=== PATIENT | male | born 1955 | race Caucasian/White ===

== ENCOUNTER 2017-01-27 09:52 | Inpatient (IN) | payer OTHER, SELFPAY ==
[2017-01-27 09:53] VITALS: BMI 23.6
[2017-01-27] MEDS ORDERED: Sodium Chloride 0.9% 1,000 ML IV ONE (10:17)
[2017-01-27] MEDS ORDERED: Sodium Chloride 0.9% 1,000 ML ONE (10:37)
[2017-01-27] MEDS ORDERED: Iohexol 240 (50 ml) ONE (10:37)
[2017-01-27 10:52] LABS: CHLORIDE 99 mmol/L (98-107); SODIUM 133 mmol/L (132-148)
[2017-01-27 10:53] LABS: POTASSIUM 3.9 mmol/L (3.6-5.2)
[2017-01-27 10:54] LABS: BASO % 2.3 % (0.0-2.0); EOS # 0.1 K/uL (0.0-0.7); EOS % 4.2 % (0.0-4.0); GFR AFRICAN-AMERICAN > 60; HEMATOCRIT 43.5 % (35.0-51.0); LYMPH # 0.5 K/uL (1.0-4.3); LYMPH % 24.7 % (20.0-40.0); MEAN CELL VOLUME 90.1 fL (80.0-94.0); MEAN CORPUSCULAR HEMOGLOBIN 29.6 pg (27.0-31.0); MEAN CORPUSCULAR HGB CONC 32.9 g/dL (33.0-37.0); MEAN PLATELET VOLUME 8.8 fL (7.2-11.7); MONO # 0.2 K/uL (0.0-0.8); MONO % 12.5 % (0.0-10.0); NRBC % 0.4 % (0.0-2.0); RED CELL DISTRIBUTION WIDTH 16.1 % (11.5-14.5)
[2017-01-27 10:55] LABS: ALB/GLOB RATIO 0.7 (1.0-2.1); ALKALINE PHOSPHATASE 215 U/L (38-126); ALT/SGPT 39 U/L (21-72); AST/SGOT 47 U/L (17-59); BILIRUBIN,TOTAL 3.4 mg/dL (0.2-1.3); BLOOD UREA NITROGEN 7 mg/dL (9-20); CALCIUM 8.4 mg/dl (8.6-10.4); CARBON DIOXIDE 24 mmol/L (22-30); TOTAL PROTEIN 6.4 g/dL (6.3-8.3)
[2017-01-27 11:02] LABS: GLUCOSE,RANDOM 433 mg/dL (75-110)
[2017-01-27 11:18] LABS: RBC URINE 1 /hpf (0-3); URINE BILIRUBIN NEGATIVE (NEGATIVE); URINE BLOOD NEGATIVE (NEGATIVE); URINE COLOR Yellow (YELLOW); URINE GLUCOSE (UA) 3+ mg/dL (Normal); URINE KETONE TRACE mg/dL (NEGATIVE); URINE LEUKOCYTE ESTERASE NEG Leu/uL (Negative); URINE PROTEIN NEGATIVE (NEGATIVE); URINE UROBILINOGEN NORMAL mg/dL (0.2-1.0); WBC URINE < 1 /hpf (0-5)
[2017-01-27] MEDS ORDERED: Iodixanol 320 MG/ML 100 ML BOTTLE IV ONE (11:33)
--- NOTE | 2017-01-27 13:15 | CT ---
PROCEDURE: CT Abdomen and Pelvis with contrast HISTORY: h/o ascites - increasing size with lft. abd. pain COMPARISON: Comparison is made to 11/13/2015 TECHNIQUE: Contrast dose: 100 mL Visipaque 320. Axial and re- formatted coronal and sagittal CT images of the abdomen and pelvis were obtained after IV and oral contrast administration. Radiation dose: Total exam DLP = 527.93 mGy-cm. This CT exam was performed using one or more of the following dose reduction techniques: Automated exposure control, adjustment of the mA and/or kV according to patient size, and/or use of iterative reconstruction technique. FINDINGS: LOWER THORAX: No evidence of acute pathology. LIVER: Cirrhotic manifestation of the liver are again noted. Again seen is focal hyper enhancement at the right liver lobe measures 15 x 13.2 millimeter has not significantly changed since the previous exam and likely represent cavernous transformation of the portal vein. GALLBLADDER AND BILE DUCTS: The gallbladder is again mildly to moderately distended. No evidence of radiodense gallstones seen. If indicated further assessment of the gallbladder by ultrasound may be obtained. PANCREAS: Atrophy changes of the pancreas are again seen associated with scattered calcification consistent with chronic pancreatitis. The main pancreatic duct is moderately dilated. SPLEEN: Moderate splenomegaly is again noted. The spleen measures 18.2 centimeter in the longitudinal diameter. ADRENALS: Unremarkable. No mass. KIDNEYS AND URETERS: Unremarkable. No hydronephrosis. No solid mass. VASCULATURE: There are large collateral veins seen in the upper abdomen consistent with portal systemic shunt due to portal hypertension and liver cirrhosis. . No aortic aneurysm. BOWEL: There is a moderate diffuse small bowel wall thickening K seen in the abdomen and pelvis. Findings are nonspecific and may represent soft tissue edema however the possibility of enteritis should be excluded. Mild constipation is noted. There is no CT evidence of colitis or bowel obstruction. APPENDIX: There is no evidence of appendicitis. PERITONEUM: Moderate amount of ascites seen in the abdomen and pelvis which has increased since the previous exam. LYMPH NODES: Unremarkable. No enlarged lymph nodes. BLADDER: Mild diffuse urinary bladder wall thickening is noted. REPRODUCTIVE: Unremarkable. BONES: No acute fracture. OTHER FINDINGS: There is midline ventral hernia seen just above the umbilicus measures 4.4 centimeter in the transverse diameter and 1.4 centimeter in the AP diameter. There are postsurgical changes suggestive of prior ventral hernia repair. There are fluid containing bilateral inguinal hernias larger on the right. IMPRESSION: Moderate amount of ascites in the abdomen and pelvis, has increased since the previous exam. Advanced cirrhosis with findings consistent with portal hypertension and portal systemic shunts. Moderate splenomegaly. Chronic pancreatitis. Moderate diffuse small bowel wall thickening suspicious for enteritis. No evidence of high-grade bowel obstruction. Mild to moderate constipation. Midline ventral hernia contains fluid seen just above the umbilicus. Bilateral inguinal hernias contain fluid.
[2017-01-27] MEDS ORDERED: (Novolin R) Insulin Human Regular 100 units/ml vial IV STA (13:30)
[2017-01-27] MEDS ORDERED: (Novolin R) Insulin Human Regular 100 units/ml vial ONE (13:37)
--- NOTE | 2017-01-27 14:03 | C.PDOC ---
History Of Present Illness 61 y/o male, with PMHx of cirrhosis, IDDM (takes insulin), presents to ED for evaluation of increased abdominal distention for the past several days. (+) constipation. Otherwise, denies any fever, chills, n/v/d, dysuria, hematuria, back pain, or any other associated symptoms at this time. Chief Complaint (Nursing): Abdominal Pain History Per: Patient History/Exam Limitations: no limitations Onset/Duration Of Symptoms: Days Current Symptoms Are (Timing): Still Present Severity: Mild Location Of Pain/Discomfort: Diffuse Radiation Of Pain To:: None Quality Of Discomfort: "Pain" Associated Symptoms: Constipation. denies: Loss Of Appetite, Back Pain, Chest Pain, Urinary Symptoms Exacerbating Factors: None Alleviating Factors: None Recent travel outside of the [place]: No Additional History Per: Patient Past Medical History Reviewed: Historical Data, Nursing Documentation, Vital Signs Vital Signs: Last Vital Signs Temp 97.9 F 01/27/17 15:30 Pulse 74 01/27/17 15:30 Resp 18 01/27/17 16:23 BP 113/69 01/27/17 17:26 Pulse Ox 95 01/27/17 15:30 - Medical History PMH: Diabetes, Hepatitis, HTN, Hypercholesterolemia Denies: Chronic Kidney Disease Family History: States: Hypertension - Social History Hx Tobacco Use: Yes Hx Alcohol Use: No Hx Substance Use: No - Immunization History Hx Tetanus Toxoid Vaccination: Yes Hx Influenza Vaccination: Yes Hx Pneumococcal Vaccination: No Review Of Systems Except As Marked, All Systems Reviewed And Found Negative. Constitutional: Negative for: Fever, Chills Gastrointestinal: Positive for: Abdominal Pain (abdominal distention), Constipation. Negative for: Nausea, Vomiting, Diarrhea Genitourinary: Negative for: Dysuria, Frequency, Hematuria, Penile Discharge Musculoskeletal: Negative for: Back Pain Physical Exam - Physical Exam Appears: Non-toxic, No Acute Distress, Other (thin) Skin: Normal Color, Warm, Dry Head: Atraumatic, Normacephalic Eye(s): bilateral: Normal Inspection Oral Mucosa: Moist Neck: Normal ROM, Supple Cardiovascular: Rhythm Regular, No Murmur Respiratory: Normal Breath Sounds, No Rales, No Rhonchi, No Wheezing Gastrointestinal/Abdominal: Bowel Sounds, Soft, Tenderness (bilateral lower), Organomegaly (hepatomegaly, splenomegaly), Distention ((+)fluid wave), No Guarding, No Rebound Back: Normal Inspection, No CVA Tenderness Extremity: Normal ROM, No Pedal Edema, No Deformity Neurological/Psych: Oriented x3, Normal Speech, Normal Cognition ED Course And Treatment - Laboratory Results Result Diagrams: 01/27/17 10:35 01/27/17 10:35 O2 Sat by Pulse Oximetry: 95 (RA) Pulse Ox Interpretation: Normal Medical Decision Making Medical Decision Making: Plan: Urine culture Patient was given Insulin, and IV fluids. Case discussed with Dr. Schulte who will admit patient under his service. Disposition - Disposition Disposition: HOSPITALIZED Disposition Time: 13:00 Condition: STABLE - Clinical Impression Clinical Impression: Abdominal distension, Chronic active hepatitis C, Thrombocytopenia, Constipation - Scribe Statement The provider has reviewed the documentation as recorded by the Scribzachary Rizo All medical record entries made by the Reganibe were at my direction and personally dictated by me. I have reviewed the chart and agree that the record accurately reflects my personal performance of the history, physical exam, medical decision making, and the department course for this patient. I have also personally directed, reviewed, and agree with the discharge instructions and disposition.
--- NOTE | 2017-01-27 16:03 | RAD ---
PROCEDURE: CHEST RADIOGRAPH, 1 VIEW HISTORY: r/o pleural effusion COMPARISON: 05/16/2016 FINDINGS: LUNGS: No consolidation. PLEURA: No pneumothorax or pleural fluid seen. CARDIOVASCULAR: Mild cardiomegaly Mild central pulmonary venous congestion =slightly increased compared to the prior exam OSSEOUS STRUCTURES: No significant abnormalities. VISUALIZED UPPER ABDOMEN: Normal. OTHER FINDINGS: None. IMPRESSION: Mild cardiomegaly. Mild central pulmonary venous can -slightly increased. No definitive pleural effusion.
[2017-01-27] MEDS ORDERED: Hydrocortisone 0.5% Cream(30 gm) TOP PRN ×2 (16:17→16:29)
[2017-01-27] MEDS: (Novolog) Insulin Aspart, Recombinant 100 u/ml 10 ml vial SC SCH ×2 (17:02→21:43)
[2017-01-27] MEDS: Pantoprazole 40 mg EC Tab PO SCH (17:35)
--- NOTE | 2017-01-27 17:56 | CP.PCM.HP ---
<MkJarethKaren - Last Filed: 01/27/17 23:15> History of Present Illness - History of Present Illness History of Present Illness: HPI: Patient is a 61M from [place] with PMH Hepatitis C, Cirrhosis, R inguinal hernia, and IDDM who presented to the ED for increasing abdominal distention. Patient says he thinks it is ascites as he has had this in the past 2/2 cirrhosis. Patient says he noticed this about 1 week ago and it has been getting worse since then. In the past patient refused paracentesis and was treated with conservative medical management. Pt says he was seen at [facility] last year and was told he was a candidate for liver transplantation. Pt admits to associated 11/08 abdominal pain located mainly in the lower abdomen as well as pain in right groin consistent with right inguinal hernia that he has had for 6 months and is being followed by a general surgeon that he does not recall the name. Pt also admits to constipation but says his last BM was today although he had to strain. Patient admits to frequent urination which he says is normal for him. Patient denies f/c/n/v/d/blood in stool/sob/cp/[place]/ weakness/dizziness/vision changes/dysuria/extremity pain and weakness/recent travel. PMH: Hepatitis C, Cirrhosis, R inguinal hernia, and IDDM Meds: Insulin 70/30 15 units in am and 15 U in pm (pt says he cannot afford this and gets it from a friend, using syringe instead of pen), hx of lasix but discontinued because pt could not afford PSH: denies FH: denies SocHx: current smoker (5 cig/day for 20 years) former PPD smoker (20 years), denies current or history of alcohol or illicit drug use Allergies: NKDA Present on Admission - Present on Admission Any Indicators Present on Admission: Yes History of Uncontrolled Diabetes: Yes Review of Systems - Review of Systems All systems: reviewed and no additional remarkable complaints except (as per HPI ) - Hematologic/Lymphatic Additional comments: As per HPI Past Patient History - Infectious Disease Hx of Infectious Diseases: None - Tetanus Immunizations Tetanus Immunization: Unknown - Past Medical History & Family History Past Medical History?: Yes - Past Social History Smoking Status: Current Some Days Smoker - CARDIAC Hx Cardiac Disorders: Yes Hx Hypercholesterolemia: Yes Hx Hypertension: Yes - PULMONARY Hx Respiratory Disorders: No - NEUROLOGICAL Hx Neurological Disorder: No - HEENT Hx HEENT Problems: No - RENAL Hx Chronic Kidney Disease: No - ENDOCRINE/METABOLIC Hx Endocrine Disorders: Yes Hx Diabetes Mellitus Type 1: Yes - HEMATOLOGICAL/ONCOLOGICAL Hx Blood Disorders: Yes Hx Hepatitis C: Yes - INTEGUMENTARY Hx Dermatological Problems: No - MUSCULOSKELETAL/RHEUMATOLOGICAL Hx Musculoskeletal Disorders: No Hx Falls: Yes - GASTROINTESTINAL Hx Gastrointestinal Disorders: Yes Other/Comment: Liver Disease - GENITOURINARY/GYNECOLOGICAL Hx Genitourinary Disorders: No - PSYCHIATRIC Hx Psychophysiologic Disorder: No Hx Substance Use: No - SURGICAL HISTORY Hx Surgeries: No - ANESTHESIA Hx Anesthesia: No Meds Allergies/Adverse Reactions: Allergies Allergy/AdvReac Type Severity Reaction Status Date / Time No Known Allergies Allergy Verified 05/16/16 07:46 Physical Exam - Constitutional Appears: Non-toxic, No Acute Distress - Head Exam Head Exam: NORMAL INSPECTION - Eye Exam Eye Exam: Conjunctival injection (left eye), EOMI - ENT Exam ENT Exam: Mucous Membranes Moist - Respiratory Exam Respiratory Exam: NORMAL BREATHING PATTERN. absent: Accessory Muscle Use, Wheezes, Respiratory Distress Additional comments: Course breath sounds b/l - Cardiovascular Exam Cardiovascular Exam: REGULAR RHYTHM, +S1, +S2. absent: Bradycardia, Tachycardia - GI/Abdominal Exam GI & Abdominal Exam: Distended, Mass (supraumbilical mass likely hernia ), Normal Bowel Sounds, Tenderness (diffuse with deep palpation ). absent: Guarding - Exam Exam: absent: Scrotal Swelling, Testicular Tenderness Additional comments: right inguinal hernia - Extremities Exam Extremities exam: Positive for: pedal edema (b/l). Negative for: calf tenderness - Neurological Exam Neurological exam: Alert, Oriented x3 - Psychiatric Exam Psychiatric exam: Normal Affect, Normal Mood - Skin Skin Exam: Dry, Intact, Rash (pruritic across back, mid abdomen, and right ribcage ) Results - Vital Signs Recent Vital Signs: Last Vital Signs Temp 97.9 F 01/27/17 15:30 Pulse 74 01/27/17 15:30 Resp 18 01/27/17 16:23 BP 113/69 01/27/17 17:26 Pulse Ox 95 01/27/17 15:30 - Labs Result Diagrams: 01/27/17 10:35 01/27/17 10:35 Labs: Laboratory Results - last 24 hr 01/27/17 16:53 POC Glucose (mg/dL) 307 H Assessment & Plan - Assessment and Plan (Free Text) Assessment: Hx of Hepatitis C with cirrhosis * GI consulted (Dr. Cho), recs appreciated * F/U Hepatitis panel * F/U Hep B surface antigen * F/U HCV genotype and viral load Ascites with abdominal pain * F/U urine culture ordered in ED * IR consulted for therapeutic/diagnostic paracentesis * F/U fluid culture/stain, fungal culture, anaerobic culture, cytology, albumin , cell count/diff * Lasix 40 mg PO BID * Spironolactone 25 mg PO QD * Monitor I&Os * F/U CXR to r/o pulmonary effusion Rash * Hydrocortisone cream 0.5% BID PRN pruritis Right inguinal hernia * followed by unknown general surgeon - try to clarify Supraumbilical hernia * Hx of supraumbilical mass for 1 yr per patient * consider General surgery consult if symptomatic or nonreducible IDDM * Sliding scale insulin * Insulin 70/30 10 U in am and 10 U pm * monitor glucose * Consistent Carb diet (MOD) * F/U HbA1c * F/U lipid panel Thrombocytopenia * Pt with hx of this since Jan 2015 * Consider Heme/Onc consult * F/U PT/PTT/INR Leukopenia * Pt with hx of this since Jan 2015 * Consider Heme/Onc consult GI and DVT PPX * Protonix 40 mg PO QD * Contraindication to DVT prophylaxis 2/2 LE edema and low platelets <Wilfred Schulte - Last Filed: 01/28/17 13:22> Results - Vital Signs Recent Vital Signs: Last Vital Signs Temp 97.7 F 01/28/17 08:00 Pulse 76 01/28/17 08:00 Resp 20 01/28/17 08:00 BP 121/68 01/28/17 09:54 Pulse Ox 95 01/28/17 08:00 - Labs Result Diagrams: 01/28/17 07:10 01/28/17 07:10 Labs: Laboratory Results - last 24 hr 01/27/17 01/27/17 01/28/17 16:53 21:21 01:58 WBC RBC Hgb Hct MCV MCH MCHC RDW Plt Count MPV Neut % (Auto) Lymph % (Auto) [place] % (Auto) Eos % (Auto) Baso % (Auto) Neut # Lymph # [place] # Eos # Baso # PT INR APTT Sodium Potassium Chloride Carbon Dioxide Anion Gap BUN Creatinine Est GFR ( Amer) Est GFR (Non-Af Amer) POC Glucose (mg/dL) 307 H 352 H 336 H Random Glucose Hemoglobin A1c Calcium Phosphorus Magnesium Total Bilirubin AST ALT Alkaline Phosphatase Total Protein Albumin Globulin Albumin/Globulin Ratio Triglycerides Cholesterol LDL Cholesterol Direct HDL Cholesterol Hepatitis A IgM Ab Hep Bs Antigen Hep Bs Antibody Hep B Core IgM Ab Hepatitis C Antibody 01/28/17 01/28/17 01/28/17 06:30 07:10 07:10 WBC 2.1 L RBC 4.45 Hgb 13.2 Hct 39.8 MCV 89.4 MCH 29.7 MCHC 33.2 RDW 16.2 H Plt Count 32 L MPV 9.0 Neut % (Auto) 56.1 Lymph % (Auto) 26.6 [place] % (Auto) 13.4 H Eos % (Auto) 3.0 Baso % (Auto) 0.9 Neut # 1.2 L Lymph # 0.6 L [place] # 0.3 Eos # 0.1 Baso # 0.0 PT INR APTT Sodium 134 Potassium 4.4 Chloride 102 Carbon Dioxide 25 Anion Gap 11 BUN 10 Creatinine 0.6 L Est GFR ( Amer) > 60 Est GFR (Non-Af Amer) > 60 POC Glucose (mg/dL) 397 H Random Glucose 369 H Hemoglobin A1c Calcium 8.3 L Phosphorus 3.0 Magnesium 1.7 Total Bilirubin 3.3 H AST 38 ALT 40 Alkaline Phosphatase 158 H D Total Protein 5.5 L Albumin 2.0 L D Globulin 3.5 Albumin/Globulin Ratio 0.6 L Triglycerides 163 H D Cholesterol 187 LDL Cholesterol Direct 87 HDL Cholesterol 55 Hepatitis A IgM Ab Hep Bs Antigen Hep Bs Antibody Hep B Core IgM Ab Hepatitis C Antibody 01/28/17 01/28/17 01/28/17 07:10 07:10 07:10 WBC RBC Hgb Hct MCV MCH MCHC RDW Plt Count MPV Neut % (Auto) Lymph % (Auto) [place] % (Auto) Eos % (Auto) Baso % (Auto) Neut # Lymph # [place] # Eos # Baso # PT INR APTT Sodium Potassium Chloride Carbon Dioxide Anion Gap BUN Creatinine Est GFR ( Amer) Est GFR (Non-Af Amer) POC Glucose (mg/dL) Random Glucose Hemoglobin A1c 13.0 H Calcium Phosphorus Magnesium Total Bilirubin AST ALT Alkaline Phosphatase Total Protein Albumin Globulin Albumin/Globulin Ratio Triglycerides Cholesterol LDL Cholesterol Direct HDL Cholesterol Hepatitis A IgM Ab Negative Hep Bs Antigen Negative Hep Bs Antibody Positive Hep B Core IgM Ab Negative Hepatitis C Antibody Reactive 01/28/17 01/28/17 07:10 11:24 WBC RBC Hgb Hct MCV MCH MCHC RDW Plt Count MPV Neut % (Auto) Lymph % (Auto) [place] % (Auto) Eos % (Auto) Baso % (Auto) Neut # Lymph # [place] # Eos # Baso # PT 18.3 H INR 1.6 APTT 36 H Sodium Potassium Chloride Carbon Dioxide Anion Gap BUN Creatinine Est GFR ( Amer) Est GFR (Non-Af Amer) POC Glucose (mg/dL) 406 H* Random Glucose Hemoglobin A1c Calcium Phosphorus Magnesium Total Bilirubin AST ALT Alkaline Phosphatase Total Protein Albumin Globulin Albumin/Globulin Ratio Triglycerides Cholesterol LDL Cholesterol Direct HDL Cholesterol Hepatitis A IgM Ab Hep Bs Antigen Hep Bs Antibody Hep B Core IgM Ab Hepatitis C Antibody Attending/Attestation - Attestation I have personally seen and examined this patient.: Yes I have fully participated in the care of the patient.: Yes I have reviewed all pertinent clinical information: Yes Notes (Text): 01/28/17 13:21 Patient was seen and examined at bedside with the resident at the time of admission. We will start the patient on IV Lasix and spironolactone. We will request interventional radiology for paracentesis We have requested gastroenterology consultation for the patient I discussed the plan of care with the resident and agree with the history and physical and assessment/plan documented.
[2017-01-27] MEDS ORDERED: (Novolog Mix 70/30) Insulin Aspart/Insulin Aspar 100 units/ml SC SCH ×2 (18:00)
[2017-01-28 00:43] VITALS: RESP 20
[2017-01-28 07:19] LABS: EOS # 0.1 K/uL (0.0-0.7); LYMPH # 0.6 K/uL (1.0-4.3); MONO # 0.3 K/uL (0.0-0.8); WHITE BLOOD COUNT 2.1 K/uL (4.8-10.8)
[2017-01-28 07:31] LABS: INR 1.6
[2017-01-28 07:39] LABS: BASO % 0.9 % (0.0-2.0); HEMATOCRIT 39.8 % (35.0-51.0); LYMPH % 26.6 % (20.0-40.0); MEAN CELL VOLUME 89.4 fL (80.0-94.0); MEAN CORPUSCULAR HEMOGLOBIN 29.7 pg (27.0-31.0); MEAN CORPUSCULAR HGB CONC 33.2 g/dL (33.0-37.0); MONO % 13.4 % (0.0-10.0); NRBC % 0.8 % (0.0-2.0); RED CELL DISTRIBUTION WIDTH 16.2 % (11.5-14.5)
[2017-01-28 07:47] LABS: CHLORIDE 102 mmol/L (98-107); POTASSIUM 4.4 mmol/L (3.6-5.2); SODIUM 134 mmol/L (132-148)
[2017-01-28 07:49] LABS: BILIRUBIN,TOTAL 3.3 mg/dL (0.2-1.3); CARBON DIOXIDE 25 mmol/L (22-30); CHOLESTEROL 187 mg/dL (0-199); GFR AFRICAN-AMERICAN > 60
[2017-01-28 07:50] LABS: ALB/GLOB RATIO 0.6 (1.0-2.1); ALKALINE PHOSPHATASE 158 U/L (38-126); ALT/SGPT 40 U/L (21-72); AST/SGOT 38 U/L (17-59); BLOOD UREA NITROGEN 10 mg/dL (9-20); CALCIUM 8.3 mg/dl (8.6-10.4); GLUCOSE,RANDOM 369 mg/dL (75-110); MAGNESIUM 1.7 mg/dL (1.6-2.3); TOTAL PROTEIN 5.5 g/dL (6.3-8.3)
[2017-01-28] MEDS: Pantoprazole 40 mg EC Tab PO SCH (09:51)
[2017-01-28] MEDS: (Novolog Mix 70/30) Insulin Aspart/Insulin Aspar 100 units/ml SC SCH ×2 (09:51→17:05)
[2017-01-28] MEDS: (Novolog) Insulin Aspart, Recombinant 100 u/ml 10 ml vial SC SCH ×4 (09:53→22:30)
--- NOTE | 2017-01-28 10:24 | CP.PCM.CON ---
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 He has had previous admissions at [facility] for enceph and abd distention > 1 year ago. He had much of his prior liver and GI workup done [place] [facility], but subsequently his liver disease got worse and he lost insurance with only inpatient work up. He states that he has had an eval at [facility] years ago, but did not follow-up. He also has not followed outpatient clinic for PCP and GI. He has had several episodes of encephalopathy and does not take outpatient lactulose. He also had EGD 8 years ago with 3 bands. He has history of ascites but does not know if he ever had SBP. He has never had colonoscopy. He denies episodes of hematemesis, dark stools or melena prior to admission. He was supposed to be on diuretics as an oupt but is non-compliant ROS: 12-point ROS conducted, neg other than previously stated above PMHx; HTN, DM, HCV cirrhosis Social: denies any etoh use, 1ppd for 20+ years, currently smokes 5 cig daily, denies any illicit drugs Endo Hx: EGD previouly with banding?, no colonscopy Past Patient History - Infectious Disease Hx of Infectious Diseases: None - Tetanus Immunizations Tetanus Immunization: Unknown - Past Medical History & Family History Past Medical History?: Yes - Past Social History Smoking Status: Current Some Days Smoker - CARDIAC Hx Cardiac Disorders: Yes Hx Hypercholesterolemia: Yes Hx Hypertension: Yes - PULMONARY Hx Respiratory Disorders: No - NEUROLOGICAL Hx Neurological Disorder: No - HEENT Hx HEENT Problems: No - RENAL Hx Chronic Kidney Disease: No - ENDOCRINE/METABOLIC Hx Endocrine Disorders: Yes Hx Diabetes Mellitus Type 1: Yes - HEMATOLOGICAL/ONCOLOGICAL Hx Blood Disorders: Yes Hx Hepatitis C: Yes - INTEGUMENTARY Hx Dermatological Problems: No - MUSCULOSKELETAL/RHEUMATOLOGICAL Hx Musculoskeletal Disorders: No Hx Falls: Yes - GASTROINTESTINAL Hx Gastrointestinal Disorders: Yes Other/Comment: Liver Disease - GENITOURINARY/GYNECOLOGICAL Hx Genitourinary Disorders: No - PSYCHIATRIC Hx Psychophysiologic Disorder: No Hx Substance Use: No - SURGICAL HISTORY Hx Surgeries: No - ANESTHESIA Hx Anesthesia: No Meds Allergies/Adverse Reactions: Allergies Allergy/AdvReac Type Severity Reaction Status Date / Time No Known Allergies Allergy Verified 05/16/16 07:46 - Medications Medications: Current Medications Furosemide (Lasix) 40 mg IVP BID [facility] Last Admin: 01/28/17 09:54 Dose: 40 mg Hydrocortisone (Cortizone 0.5%) 0 ea TOP BID PRN PRN Reason: rash and itching Insulin Aspart (Novolog Mix 70/30 (70/30 Units/Ml)) 15 units SC BIDAC [facility] Last Admin: 01/28/17 09:51 Dose: 15 units Insulin Aspart (Novolog) 0 unit SC ACHS [facility] PRN Reason: Protocol Pantoprazole Sodium (Protonix Ec Tab) 40 mg PO DAILY [facility] Last Admin: 01/28/17 09:51 Dose: 40 mg Spironolactone (Aldactone) 25 mg PO DAILY [facility] Last Admin: 01/28/17 09:51 Dose: 25 mg Physical Exam - Head Exam Head Exam: ATRAUMATIC, NORMOCEPHALIC - Eye Exam Eye Exam: Normal appearance - ENT Exam ENT Exam: Mucous Membranes Moist, Normal Exam - Respiratory Exam Respiratory Exam: Clear to Auscultation Bilateral, NORMAL BREATHING PATTERN. absent: Rales, Rhonchi, Wheezes - Cardiovascular Exam Cardiovascular Exam: REGULAR RHYTHM, +S1, +S2 - GI/Abdominal Exam GI & Abdominal Exam: Distended, Normal Bowel Sounds, Soft. absent: Guarding, Organomegaly, Rebound, Rigid - Extremities Exam Extremities exam: Positive for: pedal edema - Neurological Exam Neurological exam: Alert, Normal Gait, Oriented x3 - Psychiatric Exam Psychiatric exam: Normal Affect, Normal Mood - Skin Skin Exam: Dry, Intact, Normal Color, Warm Results - Vital Signs Recent Vital Signs: Last Vital Signs Temp 97.7 F 01/28/17 08:00 Pulse 76 01/28/17 08:00 Resp 20 01/28/17 08:00 BP 121/68 01/28/17 09:54 Pulse Ox 95 01/28/17 08:00 - Labs Result Diagrams: 01/28/17 07:10 01/28/17 07:10 Labs: Laboratory Results - last 24 hr 01/27/17 01/27/17 01/28/17 16:53 21:21 01:58 WBC RBC Hgb Hct MCV MCH MCHC RDW Plt Count MPV Neut % (Auto) Lymph % (Auto) [place] % (Auto) Eos % (Auto) Baso % (Auto) Neut # Lymph # [place] # Eos # Baso # PT INR APTT Sodium Potassium Chloride Carbon Dioxide Anion Gap BUN Creatinine Est GFR ( Amer) Est GFR (Non-Af Amer) POC Glucose (mg/dL) 307 H 352 H 336 H Random Glucose Hemoglobin A1c Calcium Phosphorus Magnesium Total Bilirubin AST ALT Alkaline Phosphatase Total Protein Albumin Globulin Albumin/Globulin Ratio Triglycerides Cholesterol LDL Cholesterol Direct HDL Cholesterol Hepatitis A IgM Ab Hep Bs Antigen Hep Bs Antibody Hep B Core IgM Ab Hepatitis C Antibody 01/28/17 01/28/17 01/28/17 06:30 07:10 07:10 WBC 2.1 L RBC 4.45 Hgb 13.2 Hct 39.8 MCV 89.4 MCH 29.7 MCHC 33.2 RDW 16.2 H Plt Count 32 L MPV 9.0 Neut % (Auto) 56.1 Lymph % (Auto) 26.6 [place] % (Auto) 13.4 H Eos % (Auto) 3.0 Baso % (Auto) 0.9 Neut # 1.2 L Lymph # 0.6 L [place] # 0.3 Eos # 0.1 Baso # 0.0 PT INR APTT Sodium 134 Potassium 4.4 Chloride 102 Carbon Dioxide 25 Anion Gap 11 BUN 10 Creatinine 0.6 L Est GFR ( Amer) > 60 Est GFR (Non-Af Amer) > 60 POC Glucose (mg/dL) 397 H Random Glucose 369 H Hemoglobin A1c Calcium 8.3 L Phosphorus 3.0 Magnesium 1.7 Total Bilirubin 3.3 H AST 38 ALT 40 Alkaline Phosphatase 158 H D Total Protein 5.5 L Albumin 2.0 L D Globulin 3.5 Albumin/Globulin Ratio 0.6 L Triglycerides 163 H D Cholesterol 187 LDL Cholesterol Direct 87 HDL Cholesterol 55 Hepatitis A IgM Ab Hep Bs Antigen Hep Bs Antibody Hep B Core IgM Ab Hepatitis C Antibody 01/28/17 01/28/17 01/28/17 07:10 07:10 07:10 WBC RBC Hgb Hct MCV MCH MCHC RDW Plt Count MPV Neut % (Auto) Lymph % (Auto) [place] % (Auto) Eos % (Auto) Baso % (Auto) Neut # Lymph # [place] # Eos # Baso # PT INR APTT Sodium Potassium Chloride Carbon Dioxide Anion Gap BUN Creatinine Est GFR ( Amer) Est GFR (Non-Af Amer) POC Glucose (mg/dL) Random Glucose Hemoglobin A1c 13.0 H Calcium Phosphorus Magnesium Total Bilirubin AST ALT Alkaline Phosphatase Total Protein Albumin Globulin Albumin/Globulin Ratio Triglycerides Cholesterol LDL Cholesterol Direct HDL Cholesterol Hepatitis A IgM Ab Negative Hep Bs Antigen Negative Hep Bs Antibody Positive Hep B Core IgM Ab Negative Hepatitis C Antibody Reactive 01/28/17 07:10 WBC RBC Hgb Hct MCV MCH MCHC RDW Plt Count MPV Neut % (Auto) Lymph % (Auto) [place] % (Auto) Eos % (Auto) Baso % (Auto) Neut # Lymph # [place] # Eos # Baso # PT 18.3 H INR 1.6 APTT 36 H Sodium Potassium Chloride Carbon Dioxide Anion Gap BUN Creatinine Est GFR ( Amer) Est GFR (Non-Af Amer) POC Glucose (mg/dL) Random Glucose Hemoglobin A1c Calcium Phosphorus Magnesium Total Bilirubin AST ALT Alkaline Phosphatase Total Protein Albumin Globulin Albumin/Globulin Ratio Triglycerides Cholesterol LDL Cholesterol Direct HDL Cholesterol Hepatitis A IgM Ab Hep Bs Antigen Hep Bs Antibody Hep B Core IgM Ab Hepatitis C Antibody Assessment & Plan - Assessment and Plan (Free Text) Assessment: Danis Duque is a 61M w/ hx of HCV cirrhosis, HTN , Dm who presents with abd distension. 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 1. Abd distention 2/2 ascities 2. Ascities 2/2 HCV C 3. Chronic HCV Plan: - MELD-Na 18 -Pt refuses abd paracentesis for diagnostic and therapeutic, he only wants diuretic therapy -will order alpha-feto protein -CT abd w/ contrast reviewed, no masses or ;lesions noted -continue lasix 40mg daily and aldactone 100mg daily -encourage pt to continue diuretics as an oupt -hx of enceph, should be on laculose daily -needs to follow-up with GI and PCP as oupt -if pt decides to proceed to paracentesis pls let us know -pt needs another EGD for variceal screening and colonoscopy for ca screening as oupt -Will sign off for now D/W Dr. Cho <Yuriy Cho Y - Last Filed: 01/28/17 17:30> Meds - Medications Medications: Current Medications Furosemide (Lasix) 40 mg IVP DAILY [facility] Hydrocortisone (Cortizone 0.5%) 0 ea TOP BID PRN PRN Reason: rash and itching Insulin Aspart (Novolog Mix 70/30 (70/30 Units/Ml)) 15 units SC BIDAC [facility] Last Admin: 01/28/17 17:05 Dose: 15 units Insulin Aspart (Novolog) 0 unit SC ACHS [facility] PRN Reason: Protocol Last Admin: 01/28/17 17:04 Dose: 12 unit Pantoprazole Sodium (Protonix Ec Tab) 40 mg PO DAILY [facility] Last Admin: 01/28/17 09:51 Dose: 40 mg Spironolactone (Aldactone) 100 mg PO DAILY [facility] Results - Vital Signs Recent Vital Signs: Last Vital Signs Temp 97.9 F 01/28/17 15:38 Pulse 75 01/28/17 15:38 Resp 20 01/28/17 15:38 BP 103/72 01/28/17 15:38 Pulse Ox 96 01/28/17 15:38 - Labs Result Diagrams: 01/28/17 07:10 01/28/17 07:10 Labs: Laboratory Results - last 24 hr 01/27/17 01/28/17 01/28/17 21:21 01:58 06:30 WBC RBC Hgb Hct MCV MCH MCHC RDW Plt Count MPV Neut % (Auto) Lymph % (Auto) [place] % (Auto) Eos % (Auto) Baso % (Auto) Neut # Lymph # [place] # Eos # Baso # PT INR APTT Sodium Potassium Chloride Carbon Dioxide Anion Gap BUN Creatinine Est GFR ( Amer) Est GFR (Non-Af Amer) POC Glucose (mg/dL) 352 H 336 H 397 H Random Glucose Hemoglobin A1c Calcium Phosphorus Magnesium Total Bilirubin AST ALT Alkaline Phosphatase Total Protein Albumin Globulin Albumin/Globulin Ratio Triglycerides Cholesterol LDL Cholesterol Direct HDL Cholesterol Hepatitis A IgM Ab Hep Bs Antigen Hep Bs Antibody Hep B Core IgM Ab Hepatitis C Antibody 01/28/17 01/28/17 01/28/17 07:10 07:10 07:10 WBC 2.1 L RBC 4.45 Hgb 13.2 Hct 39.8 MCV 89.4 MCH 29.7 MCHC 33.2 RDW 16.2 H Plt Count 32 L MPV 9.0 Neut % (Auto) 56.1 Lymph % (Auto) 26.6 [place] % (Auto) 13.4 H Eos % (Auto) 3.0 Baso % (Auto) 0.9 Neut # 1.2 L Lymph # 0.6 L [place] # 0.3 Eos # 0.1 Baso # 0.0 PT INR APTT Sodium 134 Potassium 4.4 Chloride 102 Carbon Dioxide 25 Anion Gap 11 BUN 10 Creatinine 0.6 L Est GFR ( Amer) > 60 Est GFR (Non-Af Amer) > 60 POC Glucose (mg/dL) Random Glucose 369 H Hemoglobin A1c Calcium 8.3 L Phosphorus 3.0 Magnesium 1.7 Total Bilirubin 3.3 H AST 38 ALT 40 Alkaline Phosphatase 158 H D Total Protein 5.5 L Albumin 2.0 L D Globulin 3.5 Albumin/Globulin Ratio 0.6 L Triglycerides 163 H D Cholesterol 187 LDL Cholesterol Direct 87 HDL Cholesterol 55 Hepatitis A IgM Ab Negative Hep Bs Antigen Negative Hep Bs Antibody Hep B Core IgM Ab Negative Hepatitis C Antibody Reactive 01/28/17 01/28/17 01/28/17 07:10 07:10 07:10 WBC RBC Hgb Hct MCV MCH MCHC RDW Plt Count MPV Neut % (Auto) Lymph % (Auto) [place] % (Auto) Eos % (Auto) Baso % (Auto) Neut # Lymph # [place] # Eos # Baso # PT 18.3 H INR 1.6 APTT 36 H Sodium Potassium Chloride Carbon Dioxide Anion Gap BUN Creatinine Est GFR ( Amer) Est GFR (Non-Af Amer) POC Glucose (mg/dL) Random Glucose Hemoglobin A1c 13.0 H Calcium Phosphorus Magnesium Total Bilirubin AST ALT Alkaline Phosphatase Total Protein Albumin Globulin Albumin/Globulin Ratio Triglycerides Cholesterol LDL Cholesterol Direct HDL Cholesterol Hepatitis A IgM Ab Hep Bs Antigen Hep Bs Antibody Positive Hep B Core IgM Ab Hepatitis C Antibody 01/28/17 01/28/17 11:24 16:18 WBC RBC Hgb Hct MCV MCH MCHC RDW Plt Count MPV Neut % (Auto) Lymph % (Auto) [place] % (Auto) Eos % (Auto) Baso % (Auto) Neut # Lymph # [place] # Eos # Baso # PT INR APTT Sodium Potassium Chloride Carbon Dioxide Anion Gap BUN Creatinine Est GFR ( Amer) Est GFR (Non-Af Amer) POC Glucose (mg/dL) 406 H* 412 H* Random Glucose Hemoglobin A1c Calcium Phosphorus Magnesium Total Bilirubin AST ALT Alkaline Phosphatase Total Protein Albumin Globulin Albumin/Globulin Ratio Triglycerides Cholesterol LDL Cholesterol Direct HDL Cholesterol Hepatitis A IgM Ab Hep Bs Antigen Hep Bs Antibody Hep B Core IgM Ab Hepatitis C Antibody Attending/Attestation - Attestation I have personally seen and examined this patient.: Yes I have fully participated in the care of the patient.: Yes I have reviewed all pertinent clinical information: Yes Notes (Text): 01/28/17 17:24 I have seen and examined patient with GI fellow. Agree with above documentation with the following additions. In brief, this is a 61 year old male with history of decompensated cirrhosis secondary to HCV, DM, HTN who presents to ER for complaint of progressive abdominal distention over the past one week. He denies abdominal pain, nausea, vomiting, diarrhea, fever/chills, weight loss, or rectal bleeding. He is treatment naive and has not had any outpatient follow up regarding chronic liver disease. No prior endoscopic evaluation. HCV decompensated cirrhosis, admission MELD 18 Increased abdominal girth, ascites CT imaging reviewed by me showing no focal liver lesions - Patient would benefit from diagnostic and therapeutic paracentesis, however he is adamantly refusing intervention. Risks/benefits of this strategy discussed in detail with patient and he understands and is only interested in diuretic therapy at this time. - Continue with current diuretic regimen, monitor electrolytes - Maintain lactulose therapy for prevention of HE - Obtain AFP - Patient would benefit from elective EGD for variceal screening and colonoscopy for CRC screening which can be performed as outpatient. Suggest outpatient follow up at tertiary care facility for transplant evaluation. - No planned GI intervention, will sign off case. Please reconsult as necessary , thank you.
--- NOTE | 2017-01-28 17:33 | CP.PCM.PN ---
<Ivonne Hernandez - Last Filed: 01/28/17 17:30> Subjective - Date & Time of Evaluation Date of Evaluation: 01/28/17 Time of Evaluation: 07:00 - Subjective Subjective: PGY-1 medicine note, Dr. Schulte's Service Patient seen and examined at bedside and in no acute distress. Patient says abdomen is still causing him discomfort. He thinks that his abdomen is becoming more distended. Patient denies shortness of breath, chest pain, nausea, vomiting , constipation, or diarrhea. Objective - Vital Signs/Intake and Output Vital Signs (last 24 hours): Temp Pulse Resp BP Pulse Ox 97.9 F 75 20 103/72 96 01/28/17 15:38 01/28/17 15:38 01/28/17 15:38 01/28/17 15:38 01/28/17 15:38 Intake and Output: 01/28/17 01/28/17 06:59 18:59 Intake Total 300 Output Total 180 Balance 120 - Medications Medications: Current Medications Furosemide (Lasix) 40 mg IVP DAILY [facility] Hydrocortisone (Cortizone 0.5%) 0 ea TOP BID PRN PRN Reason: rash and itching Insulin Aspart (Novolog Mix 70/30 (70/30 Units/Ml)) 15 units SC BIDAC [facility] Last Admin: 01/28/17 17:05 Dose: 15 units Insulin Aspart (Novolog) 0 unit SC ACHS [facility] PRN Reason: Protocol Last Admin: 01/28/17 17:04 Dose: 12 unit Pantoprazole Sodium (Protonix Ec Tab) 40 mg PO DAILY [facility] Last Admin: 01/28/17 09:51 Dose: 40 mg Spironolactone (Aldactone) 100 mg PO DAILY [facility] - Labs Labs: 01/28/17 07:10 01/28/17 07:10 PT 18.3 SECONDS (9.7-12.2) H 01/28/17 07:10 INR 1.6 01/28/17 07:10 APTT 36 SECONDS (21-34) H 01/28/17 07:10 - Constitutional Appears: Well, Non-toxic, No Acute Distress - Head Exam Head Exam: ATRAUMATIC, NORMAL INSPECTION, NORMOCEPHALIC - Eye Exam Eye Exam: EOMI, Normal appearance - ENT Exam ENT Exam: Mucous Membranes Moist - Neck Exam Neck Exam: Full ROM. absent: Lymphadenopathy - Respiratory Exam Respiratory Exam: Clear to Ausculation Bilateral, NORMAL BREATHING PATTERN. absent: Rales, Rhonchi, Wheezes, Respiratory Distress, Stridor - Cardiovascular Exam Cardiovascular Exam: REGULAR RHYTHM, RRR. absent: Gallop, Rubs, Murmur - GI/Abdominal Exam GI & Abdominal Exam: Distended, Tenderness. absent: Guarding - Extremities Exam Extremities Exam: Full ROM, Pedal Edema - Neurological Exam Neurological Exam: Alert, Awake, Oriented x3 - Psychiatric Exam Psychiatric exam: Normal Affect, Normal Mood - Skin Skin Exam: Intact, Normal Color, Warm Assessment and Plan - Assessment and Plan (Free Text) Assessment: Hx of Hepatitis C with cirrhosis * GI consulted (Dr. Cho), recs appreciated * negative Hep A and Hep B, Hep C: reactive * F/U HCV genotype and viral load Ascites with abdominal pain * Urine Culture: no growth * IR consulted for therapeutic/diagnostic paracentesis * paracentesis not done due to low platelet count, Dr. Tolliver (heme/onc) consulted, help appreciated * Lasix 40 mg PO BID * Spironolactone 25 mg PO QD * Monitor I&Os * CXR 01/27: mild cardiomegaly, mild central pulmonary venous congestion- slightly increased. No definitive pleural effusion. Rash * Hydrocortisone cream 0.5% BID PRN pruritis Right inguinal hernia * followed by unknown general surgeon - try to clarify Supraumbilical hernia * Hx of supraumbilical mass for 1 yr per patient * consider General surgery consult if symptomatic or nonreducible IDDM * Sliding scale insulin * Insulin 70/30 increased to 15 u BID * monitor glucose * Consistent Carb diet (MOD) * HbA1c: 13 * Triglycerides: 163, Cholesterol: 187, LDL: 87, HDL: 55 Thrombocytopenia * Pt with hx of this since Jan 2015 * Dr. Tolliver, heme/onc, consulted * PT: 18.3, PTT: 36, INR: 1.6 Leukopenia * Pt with hx of this since Jan 2015 * Dr. Tolliver, heme/onc, consulted GI and DVT PPX * Protonix 40 mg PO QD * Contraindication to DVT prophylaxis 2/2 LE edema and low platelets <Wilfred Schulte - Last Filed: 01/29/17 16:51> Objective - Vital Signs/Intake and Output Vital Signs (last 24 hours): Temp Pulse Resp BP Pulse Ox 97.5 F L 85 20 136/78 95 01/29/17 08:00 01/29/17 08:00 01/29/17 08:00 01/29/17 09:16 01/29/17 08:00 Intake and Output: 01/29/17 01/29/17 06:59 18:59 Intake Total 300 Balance 300 - Medications Medications: Current Medications Furosemide (Lasix) 40 mg IVP DAILY [facility] Last Admin: 01/29/17 09:16 Dose: 40 mg Hydrocortisone (Cortizone 0.5%) 0 ea TOP BID PRN PRN Reason: rash and itching Insulin Aspart (Novolog) 0 unit SC ACHS [facility] PRN Reason: Protocol Last Admin: 01/29/17 12:24 Dose: 6 unit Insulin Aspart (Novolog Mix 70/30 (70/30 Units/Ml)) 20 units SC BIDAC [facility] Last Admin: 01/29/17 09:15 Dose: 20 units Lactulose (Enulose) 20 gm PO Q6H [facility] Last Admin: 01/29/17 11:42 Dose: 20 gm Pantoprazole Sodium (Protonix Ec Tab) 40 mg PO DAILY [facility] Last Admin: 01/29/17 09:16 Dose: 40 mg Spironolactone (Aldactone) 100 mg PO DAILY [facility] Last Admin: 01/29/17 11:42 Dose: 100 mg - Labs Labs: 01/29/17 06:57 01/29/17 06:57 PT 18.3 SECONDS (9.7-12.2) H 01/28/17 07:10 INR 1.6 01/28/17 07:10 APTT 36 SECONDS (21-34) H 01/28/17 07:10 Attending/Attestation - Attestation I have personally seen and examined this patient.: Yes I have fully participated in the care of the patient.: Yes I have reviewed all pertinent clinical information, including history, physical exam and plan: Yes Notes (Text): 01/29/17 16:51 Patient was seen and examined at bedside with the resident Plan for paracentesis. GI evaluation requested. Follow-up recommendations I discussed the plan of care with the resident and agree with the assessment and plan documented.
[2017-01-29 07:26] LABS: BASO % 0.9 % (0.0-2.0); EOS # 0.1 K/uL (0.0-0.7); HEMATOCRIT 42.8 % (35.0-51.0); LYMPH # 0.5 K/uL (1.0-4.3); LYMPH % 17.8 % (20.0-40.0); MEAN CELL VOLUME 88.2 fL (80.0-94.0); MEAN CORPUSCULAR HEMOGLOBIN 29.6 pg (27.0-31.0); MEAN CORPUSCULAR HGB CONC 33.5 g/dL (33.0-37.0); MEAN PLATELET VOLUME 8.5 fL (7.2-11.7); MONO # 0.3 K/uL (0.0-0.8); MONO % 11.8 % (0.0-10.0); NRBC % 0.1 % (0.0-2.0); RED CELL DISTRIBUTION WIDTH 15.9 % (11.5-14.5); WHITE BLOOD COUNT 2.7 K/uL (4.8-10.8)
[2017-01-29 07:48] LABS: CHLORIDE 102 mmol/L (98-107); POTASSIUM 4.2 mmol/L (3.6-5.2); SODIUM 137 mmol/L (132-148)
[2017-01-29 07:50] LABS: ALB/GLOB RATIO 0.6 (1.0-2.1); ALKALINE PHOSPHATASE 179 U/L (38-126); ALT/SGPT 41 U/L (21-72); AST/SGOT 39 U/L (17-59); BILIRUBIN,TOTAL 3.8 mg/dL (0.2-1.3); BLOOD UREA NITROGEN 10 mg/dL (9-20); CARBON DIOXIDE 26 mmol/L (22-30); GFR AFRICAN-AMERICAN > 60; TOTAL PROTEIN 6.1 g/dL (6.3-8.3)
[2017-01-29 07:51] LABS: CALCIUM 8.8 mg/dl (8.6-10.4); GLUCOSE,RANDOM 310 mg/dL (75-110); MAGNESIUM 1.8 mg/dL (1.6-2.3); PHOSPHOROUS 3.2 mg/dL (2.5-4.5)
--- NOTE | 2017-01-29 08:56 | CP.PCM.CON ---
History of Present Illness - History of Present Illness History of Present Illness: 61 year old male with a history of DM, HTN, hep C cirrhosis, admitted with abdominal distention secondary to ascites, with leukopenia, thrombocytopenia, and coagulopathy. The patient reports to being told his platelets were low in the past at the time of his last hospitalization. He denies abnormal bleeding but does bruise easily. He has no fevers and chills. He has refused paracentesis and platelet transfusion. Past medical history: DM, HTN, hep C cirrhosis Past surgical history: Denies Family history: Denies hematologic and oncologic problems Social history: Smokes 5 cigarettes daily, denies alcohol and illicit drug use. Allergies: NKA Review of systems: All remaining review of systems including HEENT, cardiovascular, respiratory, gastrointestinal, genitourinary, musculoskeletal, dermatologic, neurologic, and psychiatric are negative unless mentioned in the HPI. Past Patient History - Infectious Disease Hx of Infectious Diseases: None - Tetanus Immunizations Tetanus Immunization: Unknown - Past Medical History & Family History Past Medical History?: Yes - Past Social History Smoking Status: Current Some Days Smoker - CARDIAC Hx Cardiac Disorders: Yes Hx Hypercholesterolemia: Yes Hx Hypertension: Yes - PULMONARY Hx Respiratory Disorders: No - NEUROLOGICAL Hx Neurological Disorder: No - HEENT Hx HEENT Problems: No - RENAL Hx Chronic Kidney Disease: No - ENDOCRINE/METABOLIC Hx Endocrine Disorders: Yes Hx Diabetes Mellitus Type 1: Yes - HEMATOLOGICAL/ONCOLOGICAL Hx Blood Disorders: Yes Hx Hepatitis C: Yes - INTEGUMENTARY Hx Dermatological Problems: No - MUSCULOSKELETAL/RHEUMATOLOGICAL Hx Musculoskeletal Disorders: No Hx Falls: Yes - GASTROINTESTINAL Hx Gastrointestinal Disorders: Yes Other/Comment: Liver Disease - GENITOURINARY/GYNECOLOGICAL Hx Genitourinary Disorders: No - PSYCHIATRIC Hx Psychophysiologic Disorder: No Hx Substance Use: No - SURGICAL HISTORY Hx Surgeries: No - ANESTHESIA Hx Anesthesia: No Meds Allergies/Adverse Reactions: Allergies Allergy/AdvReac Type Severity Reaction Status Date / Time No Known Allergies Allergy Verified 05/16/16 07:46 - Medications Medications: Current Medications Furosemide (Lasix) 40 mg IVP DAILY [facility] Hydrocortisone (Cortizone 0.5%) 0 ea TOP BID PRN PRN Reason: rash and itching Insulin Aspart (Novolog) 0 unit SC ACHS [facility] PRN Reason: Protocol Last Admin: 01/28/17 22:30 Dose: 3 unit Insulin Aspart (Novolog Mix 70/30 (70/30 Units/Ml)) 20 units SC BIDAC [facility] Pantoprazole Sodium (Protonix Ec Tab) 40 mg PO DAILY [facility] Last Admin: 01/28/17 09:51 Dose: 40 mg Spironolactone (Aldactone) 100 mg PO DAILY [facility] Physical Exam - Head Exam Head Exam: ATRAUMATIC - Eye Exam Eye Exam: Normal appearance - ENT Exam ENT Exam: Mucous Membranes Dry - Respiratory Exam Respiratory Exam: NORMAL BREATHING PATTERN - Cardiovascular Exam Cardiovascular Exam: +S1, +S2 - GI/Abdominal Exam GI & Abdominal Exam: Normal Bowel Sounds - Neurological Exam Neurological exam: Oriented x3 - Psychiatric Exam Psychiatric exam: Normal Affect, Normal Mood - Skin Skin Exam: Warm Results - Vital Signs Recent Vital Signs: Last Vital Signs Temp 97.5 F L 01/29/17 08:00 Pulse 85 01/29/17 08:00 Resp 20 01/29/17 08:00 BP 136/78 01/29/17 08:00 Pulse Ox 95 01/29/17 08:00 - Labs Result Diagrams: 01/29/17 06:57 01/29/17 06:57 Labs: Laboratory Results - last 24 hr 01/28/17 01/28/17 01/28/17 07:10 07:10 07:10 WBC RBC Hgb Hct MCV MCH MCHC RDW Plt Count MPV Neut % (Auto) Lymph % (Auto) Dunn % (Auto) Eos % (Auto) Baso % (Auto) Neut # Lymph # Dunn # Eos # Baso # Sodium Potassium Chloride Carbon Dioxide Anion Gap BUN Creatinine Est GFR ( Amer) Est GFR (Non-Af Amer) POC Glucose (mg/dL) Random Glucose Hemoglobin A1c 13.0 H Calcium Phosphorus Magnesium Total Bilirubin AST ALT Alkaline Phosphatase Total Protein Albumin Globulin Albumin/Globulin Ratio Alpha Fetoprotein Hep Bs Antibody Positive Hepatitis C Antibody Reactive 01/28/17 01/28/17 01/28/17 11:24 12:54 16:18 WBC RBC Hgb Hct MCV MCH MCHC RDW Plt Count MPV Neut % (Auto) Lymph % (Auto) Dunn % (Auto) Eos % (Auto) Baso % (Auto) Neut # Lymph # Dunn # Eos # Baso # Sodium Potassium Chloride Carbon Dioxide Anion Gap BUN Creatinine Est GFR ( Amer) Est GFR (Non-Af Amer) POC Glucose (mg/dL) 406 H* 412 H* Random Glucose Hemoglobin A1c Calcium Phosphorus Magnesium Total Bilirubin AST ALT Alkaline Phosphatase Total Protein Albumin Globulin Albumin/Globulin Ratio Alpha Fetoprotein 1.5 Hep Bs Antibody Hepatitis C Antibody 01/28/17 01/29/17 01/29/17 20:55 02:35 06:20 WBC RBC Hgb Hct MCV MCH MCHC RDW Plt Count MPV Neut % (Auto) Lymph % (Auto) Dunn % (Auto) Eos % (Auto) Baso % (Auto) Neut # Lymph # Dunn # Eos # Baso # Sodium Potassium Chloride Carbon Dioxide Anion Gap BUN Creatinine Est GFR ( Amer) Est GFR (Non-Af Amer) POC Glucose (mg/dL) 378 H 291 H 302 H Random Glucose Hemoglobin A1c Calcium Phosphorus Magnesium Total Bilirubin AST ALT Alkaline Phosphatase Total Protein Albumin Globulin Albumin/Globulin Ratio Alpha Fetoprotein Hep Bs Antibody Hepatitis C Antibody 01/29/17 01/29/17 06:57 06:57 WBC 2.7 L RBC 4.85 Hgb 14.4 Hct 42.8 MCV 88.2 MCH 29.6 MCHC 33.5 RDW 15.9 H Plt Count 35 L MPV 8.5 Neut % (Auto) 67.5 Lymph % (Auto) 17.8 L Dunn % (Auto) 11.8 H Eos % (Auto) 2.0 Baso % (Auto) 0.9 Neut # 1.8 Lymph # 0.5 L Dunn # 0.3 Eos # 0.1 Baso # 0.0 Sodium 137 Potassium 4.2 Chloride 102 Carbon Dioxide 26 Anion Gap 13 BUN 10 Creatinine 0.4 L Est GFR ( Amer) > 60 Est GFR (Non-Af Amer) > 60 POC Glucose (mg/dL) Random Glucose 310 H Hemoglobin A1c Calcium 8.8 Phosphorus 3.2 Magnesium 1.8 Total Bilirubin 3.8 H AST 39 ALT 41 Alkaline Phosphatase 179 H Total Protein 6.1 L Albumin 2.3 L Globulin 3.8 Albumin/Globulin Ratio 0.6 L Alpha Fetoprotein Hep Bs Antibody Hepatitis C Antibody Assessment & Plan (1) Thrombocytopenia Assessment and Plan: hep c, liver disease and splenic sequestration deferred transfusion in the past Status: Acute (2) Leukopenia Assessment and Plan: mild neutropenia liver disease, hep c, splenic sequestration Status: Acute (3) Coagulopathy Assessment and Plan: liver disease no evidence of bleeding Status: Acute (4) Tobacco abuse Assessment and Plan: discussed smoking cessation at length Thank you for this interesting consult. Status: Acute
[2017-01-29] MEDS: (Novolog Mix 70/30) Insulin Aspart/Insulin Aspar 100 units/ml SC SCH ×2 (09:15→18:16)
[2017-01-29] MEDS: (Novolog) Insulin Aspart, Recombinant 100 u/ml 10 ml vial SC SCH ×4 (09:15→22:18)
[2017-01-29] MEDS: Pantoprazole 40 mg EC Tab PO SCH (09:16)
--- NOTE | 2017-01-29 13:48 | CP.PCM.CON ---
History of Present Illness - History of Present Illness History of Present Illness: Palliative consult Requested by Juanito Ortiz" Goals of care discussion Patient is a 61 yo man admitted from home with abdominal pain and distention , complaining of constipation. The CT abdomen upon admission was significant for cirrhosis, and was suspicious for enteritis. B/L inguinal hernias seen filled with fluid. patient is with neutropnia and trombocytopenia looking very sick. PMH: hepatitis C, liver cirrhosis, HTN Soc. Hx: , lives at home Fam. Hx: denies known medical Hx Review of Systems - Review of Systems Systems not reviewed;Unavailable: Altered Mental Status Review of Systems: ROS obtained from nursing. Per nursing, patient is confused and lethargic and was transferred to 4 bed room for safety watch. Past Patient History - Infectious Disease Hx of Infectious Diseases: None - Tetanus Immunizations Tetanus Immunization: Unknown - Past Medical History & Family History Past Medical History?: Yes - Past Social History Smoking Status: Current Some Days Smoker - CARDIAC Hx Cardiac Disorders: Yes Hx Hypercholesterolemia: Yes Hx Hypertension: Yes - PULMONARY Hx Respiratory Disorders: No - NEUROLOGICAL Hx Neurological Disorder: No - HEENT Hx HEENT Problems: No - RENAL Hx Chronic Kidney Disease: No - ENDOCRINE/METABOLIC Hx Endocrine Disorders: Yes Hx Diabetes Mellitus Type 1: Yes - HEMATOLOGICAL/ONCOLOGICAL Hx Blood Disorders: Yes Hx Hepatitis C: Yes - INTEGUMENTARY Hx Dermatological Problems: No - MUSCULOSKELETAL/RHEUMATOLOGICAL Hx Musculoskeletal Disorders: No Hx Falls: Yes - GASTROINTESTINAL Hx Gastrointestinal Disorders: Yes Other/Comment: Liver Disease - GENITOURINARY/GYNECOLOGICAL Hx Genitourinary Disorders: No - PSYCHIATRIC Hx Psychophysiologic Disorder: No Hx Substance Use: No - SURGICAL HISTORY Hx Surgeries: No - ANESTHESIA Hx Anesthesia: No Meds Allergies/Adverse Reactions: Allergies Allergy/AdvReac Type Severity Reaction Status Date / Time No Known Allergies Allergy Verified 05/16/16 07:46 - Medications Medications: Current Medications Furosemide (Lasix) 40 mg IVP DAILY [facility] Last Admin: 01/29/17 09:16 Dose: 40 mg Hydrocortisone (Cortizone 0.5%) 0 ea TOP BID PRN PRN Reason: rash and itching Insulin Aspart (Novolog) 0 unit SC ACHS [facility] PRN Reason: Protocol Last Admin: 01/29/17 12:24 Dose: 6 unit Insulin Aspart (Novolog Mix 70/30 (70/30 Units/Ml)) 20 units SC BIDAC [facility] Last Admin: 01/29/17 09:15 Dose: 20 units Lactulose (Enulose) 20 gm PO Q6H [facility] Last Admin: 01/29/17 11:42 Dose: 20 gm Pantoprazole Sodium (Protonix Ec Tab) 40 mg PO DAILY [facility] Last Admin: 01/29/17 09:16 Dose: 40 mg Spironolactone (Aldactone) 100 mg PO DAILY [facility] Last Admin: 01/29/17 11:42 Dose: 100 mg Physical Exam - Constitutional Appears: Chronically Ill - Head Exam Head Exam: ATRAUMATIC, NORMAL INSPECTION, NORMOCEPHALIC - Eye Exam Eye Exam: EOMI, Normal appearance, PERRL Pupil Exam: NORMAL ACCOMODATION, PERRL - ENT Exam ENT Exam: Mucous Membranes Moist, Normal Exam - Neck Exam Neck exam: Positive for: Normal Inspection - Respiratory Exam Respiratory Exam: Decreased Breath Sounds - Cardiovascular Exam Cardiovascular Exam: Tachycardia, REGULAR RHYTHM - GI/Abdominal Exam GI & Abdominal Exam: Diminished Bowel Sounds, Distended - Rectal Exam Rectal Exam: Deferred - Extremities Exam Extremities exam: Positive for: pedal edema - Back Exam Back exam: NORMAL INSPECTION - Neurological Exam Neurological exam: Alert, Altered - Psychiatric Exam Psychiatric exam: Flat Affect - Skin Skin Exam: Mottled, Pallor, Petechiae Results - Vital Signs Recent Vital Signs: Last Vital Signs Temp 97.5 F L 01/29/17 08:00 Pulse 85 01/29/17 08:00 Resp 20 01/29/17 08:00 BP 136/78 01/29/17 09:16 Pulse Ox 95 01/29/17 08:00 - Labs Result Diagrams: 01/29/17 06:57 01/29/17 06:57 Labs: Laboratory Results - last 24 hr 01/28/17 01/28/17 01/28/17 12:54 16:18 20:55 WBC RBC Hgb Hct MCV MCH MCHC RDW Plt Count MPV Neut % (Auto) Lymph % (Auto) Union % (Auto) Eos % (Auto) Baso % (Auto) Neut # Lymph # Union # Eos # Baso # Sodium Potassium Chloride Carbon Dioxide Anion Gap BUN Creatinine Est GFR ( Amer) Est GFR (Non-Af Amer) POC Glucose (mg/dL) 412 H* 378 H Random Glucose Calcium Phosphorus Magnesium Total Bilirubin AST ALT Alkaline Phosphatase Ammonia Total Protein Albumin Globulin Albumin/Globulin Ratio Alpha Fetoprotein 1.5 01/29/17 01/29/17 01/29/17 02:35 06:20 06:57 WBC 2.7 L RBC 4.85 Hgb 14.4 Hct 42.8 MCV 88.2 MCH 29.6 MCHC 33.5 RDW 15.9 H Plt Count 35 L MPV 8.5 Neut % (Auto) 67.5 Lymph % (Auto) 17.8 L [place] % (Auto) 11.8 H Eos % (Auto) 2.0 Baso % (Auto) 0.9 Neut # 1.8 Lymph # 0.5 L Union # 0.3 Eos # 0.1 Baso # 0.0 Sodium Potassium Chloride Carbon Dioxide Anion Gap BUN Creatinine Est GFR ( Amer) Est GFR (Non-Af Amer) POC Glucose (mg/dL) 291 H 302 H Random Glucose Calcium Phosphorus Magnesium Total Bilirubin AST ALT Alkaline Phosphatase Ammonia Total Protein Albumin Globulin Albumin/Globulin Ratio Alpha Fetoprotein 01/29/17 01/29/17 01/29/17 06:57 10:59 11:36 WBC RBC Hgb Hct MCV MCH MCHC RDW Plt Count MPV Neut % (Auto) Lymph % (Auto) Union % (Auto) Eos % (Auto) Baso % (Auto) Neut # Lymph # Union # Eos # Baso # Sodium 137 Potassium 4.2 Chloride 102 Carbon Dioxide 26 Anion Gap 13 BUN 10 Creatinine 0.4 L Est GFR ( Amer) > 60 Est GFR (Non-Af Amer) > 60 POC Glucose (mg/dL) 287 H Random Glucose 310 H Calcium 8.8 Phosphorus 3.2 Magnesium 1.8 Total Bilirubin 3.8 H AST 39 ALT 41 Alkaline Phosphatase 179 H Ammonia 81 H D Total Protein 6.1 L Albumin 2.3 L Globulin 3.8 Albumin/Globulin Ratio 0.6 L Alpha Fetoprotein Assessment & Plan - Assessment and Plan (Free Text) Assessment: Palliative consult Code status Unknown, there is no Advance directive on chart. PPS 10% I reviewed medical records, all diagnostic studies, examined patient in the bed and tried to obtain ROS. Patient is too lethargic to participate in discussion. Patient is alert, but lethargic and looking chronically ill. Patient knew his name and the name of the hospital. After answering few very short questions, patient fail a sleep again. Skin is pale with bruises to upper arms and pedal edema. Abdomen is distended and tender to touch. WBC 2.7, Platelets 35. per record, patient has refused the Platelets transfusion and paracentesis for removal of ascites. Apparently patient has had Cirrohis for long time and had been refusing blood products transfion, was not compliant with Lactulose PO at home and did not keep up with Doctor's appointments. I made a phone call to patient's Bayron Berg, with intention to discuss goals of care and schedule family meeting. Unfortunately, the is not Turkish speaking and her younger daughter who tried to assist with translation could not help much either. Some how we managed to basic communication and I asked for family meeting. The said that she did not have anybody to bring her to the hospital and she could not come today. Impression * This is very ill young man with complex medical Hx * Based on limited phone interview with the , I got impression that she had a poor insight in patient's condition * Patient is refusing blood products transfusion and paracentesis what are imperative for his recovery * Patient's wishes for the end of life care are not known Suggestion * Family meeting for goals of care discussion * If patient becomes more alert and continue declining the proper care, than the comfort measures should be discussed I will continue to fallow up with family and hopefully schedule the family meeting. Thank you very much for consulting palliative care
--- NOTE | 2017-01-29 14:54 | CP.PCM.PN ---
<Ivonne Hernandez - Last Filed: 01/29/17 18:08> Subjective - Date & Time of Evaluation Date of Evaluation: 01/29/17 Time of Evaluation: 07:00 - Subjective Subjective: PGY1- Medicine Note- Dr. Schulte's Service Patient seen and examined at bedside. Mental status is markedly altered. Patient appears to be answering yes without fully understanding the questions being asked. Per nurse, his gait was noticeably unsteady while ambulating to the bathroom. Patient is very lethargic. Patient still says his abdomen is hurting him. A full ROS is unable to be completed. Objective - Vital Signs/Intake and Output Vital Signs (last 24 hours): Temp Pulse Resp BP Pulse Ox 97.5 F L 85 20 136/78 95 01/29/17 08:00 01/29/17 08:00 01/29/17 08:00 01/29/17 09:16 01/29/17 08:00 Intake and Output: 01/29/17 01/29/17 06:59 18:59 Intake Total 300 Balance 300 - Medications Medications: Current Medications Furosemide (Lasix) 40 mg IVP DAILY [facility] Last Admin: 01/29/17 09:16 Dose: 40 mg Hydrocortisone (Cortizone 0.5%) 0 ea TOP BID PRN PRN Reason: rash and itching Insulin Aspart (Novolog) 0 unit SC ACHS [facility] PRN Reason: Protocol Last Admin: 01/29/17 12:24 Dose: 6 unit Insulin Aspart (Novolog Mix 70/30 (70/30 Units/Ml)) 20 units SC BIDAC [facility] Last Admin: 01/29/17 09:15 Dose: 20 units Lactulose (Enulose) 20 gm PO Q6H [facility] Last Admin: 01/29/17 11:42 Dose: 20 gm Pantoprazole Sodium (Protonix Ec Tab) 40 mg PO DAILY [facility] Last Admin: 01/29/17 09:16 Dose: 40 mg Spironolactone (Aldactone) 100 mg PO DAILY [facility] Last Admin: 01/29/17 11:42 Dose: 100 mg - Labs Labs: 01/29/17 06:57 01/29/17 06:57 PT 18.3 SECONDS (9.7-12.2) H 01/28/17 07:10 INR 1.6 01/28/17 07:10 APTT 36 SECONDS (21-34) H 01/28/17 07:10 - Constitutional Appears: Toxic, No Acute Distress - Head Exam Head Exam: ATRAUMATIC, NORMAL INSPECTION, NORMOCEPHALIC - Eye Exam Eye Exam: EOMI, Normal appearance - ENT Exam ENT Exam: Mucous Membranes Moist - Neck Exam Neck Exam: Full ROM - Respiratory Exam Respiratory Exam: Clear to Ausculation Bilateral, NORMAL BREATHING PATTERN. absent: Rales, Rhonchi, Wheezes, Respiratory Distress, Stridor - Cardiovascular Exam Cardiovascular Exam: REGULAR RHYTHM, RRR. absent: Gallop, Rubs, Murmur - GI/Abdominal Exam GI & Abdominal Exam: Distended, Tenderness - Extremities Exam Extremities Exam: Pedal Edema - Neurological Exam Neurological Exam: Altered, Awake - Psychiatric Exam Psychiatric exam: Flat Affect - Skin Skin Exam: Intact, Petechiae, Warm Assessment and Plan - Assessment and Plan (Free Text) Assessment: Hx of Hepatitis C with cirrhosis * GI consulted (Dr. Cho), recs appreciated * negative Hep A and Hep B, Hep C: reactive * F/U HCV genotype and viral load Ascites with abdominal pain * Urine Culture: no growth * IR consulted for therapeutic/diagnostic paracentesis, patient refused * Lasix 40 mg PO BID * Spironolactone 25 mg PO QD * Monitor I&Os * CXR 01/27: mild cardiomegaly, mild central pulmonary venous congestion- slightly increased. No definitive pleural effusion. Encephalopathy * Ammonia 81 * Lactulose 20 gm PO q6h * monitor Rash * Hydrocortisone cream 0.5% BID PRN pruritis Right inguinal hernia * followed by unknown general surgeon - try to clarify Supraumbilical hernia * Hx of supraumbilical mass for 1 yr per patient * consider General surgery consult if symptomatic or nonreducible IDDM * Sliding scale insulin * Insulin 70/30 increased to 15 u BID * monitor glucose * Consistent Carb diet (MOD) * HbA1c: 13 * Triglycerides: 163, Cholesterol: 187, LDL: 87, HDL: 55 Thrombocytopenia * Pt with hx of this since Jan 2015 * Dr. Tolliver, heme/onc, consulted - patient refused transfusion * PT: 18.3, PTT: 36, INR: 1.6 Leukopenia * Pt with hx of this since Jan 2015 * Dr. Tolliver, heme/onc, consulted GI and DVT PPX * Protonix 40 mg PO QD * Contraindication to DVT prophylaxis 2/2 LE edema and low platelets <Wilfred Schulte M - Last Filed: 01/29/17 18:45> Objective - Vital Signs/Intake and Output Vital Signs (last 24 hours): Temp Pulse Resp BP Pulse Ox 98.1 F 80 20 127/72 96 01/29/17 16:00 01/29/17 16:00 01/29/17 16:00 01/29/17 16:00 01/29/17 16:00 Intake and Output: 01/29/17 01/29/17 06:59 18:59 Intake Total 300 Balance 300 - Medications Medications: Current Medications Furosemide (Lasix) 40 mg IVP DAILY [facility] Last Admin: 01/29/17 09:16 Dose: 40 mg Hydrocortisone (Cortizone 0.5%) 0 ea TOP BID PRN PRN Reason: rash and itching Insulin Aspart (Novolog) 0 unit SC ACHS [facility] PRN Reason: Protocol Last Admin: 01/29/17 18:15 Dose: 6 unit Insulin Aspart (Novolog Mix 70/30 (70/30 Units/Ml)) 20 units SC BIDAC [facility] Last Admin: 01/29/17 18:16 Dose: 20 units Lactulose (Enulose) 20 gm PO Q6H [facility] Last Admin: 01/29/17 18:15 Dose: 20 gm Pantoprazole Sodium (Protonix Ec Tab) 40 mg PO DAILY [facility] Last Admin: 01/29/17 09:16 Dose: 40 mg Spironolactone (Aldactone) 100 mg PO DAILY [facility] Last Admin: 01/29/17 11:42 Dose: 100 mg - Labs Labs: 01/29/17 06:57 01/29/17 06:57 PT 18.3 SECONDS (9.7-12.2) H 01/28/17 07:10 INR 1.6 01/28/17 07:10 APTT 36 SECONDS (21-34) H 01/28/17 07:10 Attending/Attestation - Attestation I have personally seen and examined this patient.: Yes I have fully participated in the care of the patient.: Yes I have reviewed all pertinent clinical information, including history, physical exam and plan: Yes Notes (Text): 01/29/17 18:44 Patient was seen and examined at bedside with the resident Patient is obtunded secondary to hepatic encephalopathy We will start the patient on lactulose and ammonia level noted I discussed the plan of care with the resident and agree with the history and physical and assessment/plan documented.
[2017-01-30 06:55] LABS: BASO % 0.9 % (0.0-2.0); EOS # 0.1 K/uL (0.0-0.7); EOS % 2.5 % (0.0-4.0); HEMATOCRIT 40.1 % (35.0-51.0); LYMPH # 0.5 K/uL (1.0-4.3); LYMPH % 20.8 % (20.0-40.0); MEAN CELL VOLUME 88.7 fL (80.0-94.0); MEAN CORPUSCULAR HEMOGLOBIN 29.7 pg (27.0-31.0); MEAN CORPUSCULAR HGB CONC 33.5 g/dL (33.0-37.0); MEAN PLATELET VOLUME 7.8 fL (7.2-11.7); MONO # 0.3 K/uL (0.0-0.8); NRBC % 0.4 % (0.0-2.0); RED CELL DISTRIBUTION WIDTH 15.9 % (11.5-14.5); WHITE BLOOD COUNT 2.5 K/uL (4.8-10.8)
[2017-01-30 07:44] LABS: CHLORIDE 108 mmol/L (98-107)
[2017-01-30 07:45] LABS: POTASSIUM 3.6 mmol/L (3.6-5.2); SODIUM 140 mmol/L (132-148)
[2017-01-30 07:47] LABS: ALB/GLOB RATIO 0.7 (1.0-2.1); ALKALINE PHOSPHATASE 151 U/L (38-126); AST/SGOT 44 U/L (17-59); BILIRUBIN,TOTAL 4.6 mg/dL (0.2-1.3); BLOOD UREA NITROGEN 12 mg/dL (9-20); CARBON DIOXIDE 27 mmol/L (22-30); GFR AFRICAN-AMERICAN > 60; TOTAL PROTEIN 5.9 g/dL (6.3-8.3)
[2017-01-30 07:48] LABS: ALT/SGPT 46 U/L (21-72); CALCIUM 8.4 mg/dl (8.6-10.4); GLUCOSE,RANDOM 234 mg/dL (75-110); MAGNESIUM 1.7 mg/dL (1.6-2.3); PHOSPHOROUS 3.9 mg/dL (2.5-4.5)
[2017-01-30] MEDS: (Novolog Mix 70/30) Insulin Aspart/Insulin Aspar 100 units/ml SC SCH ×2 (08:03→17:41)
[2017-01-30] MEDS: (Novolog) Insulin Aspart, Recombinant 100 u/ml 10 ml vial SC SCH ×3 (08:03→16:50)
[2017-01-30] MEDS: Pantoprazole 40 mg EC Tab PO SCH (10:25)
--- NOTE | 2017-01-30 15:38 | CP.PCM.PN ---
<Karen Terrazas - Last Filed: 01/30/17 19:24> Subjective - Date & Time of Evaluation Date of Evaluation: 01/30/17 Time of Evaluation: 15:38 - Subjective Subjective: Patient seen and examined at bedside. Patient doing much better today. Patient says he is still having abdominal pain and distention. Patient denies fever, chills, cp, SOB. Objective - Vital Signs/Intake and Output Vital Signs (last 24 hours): Temp Pulse Resp BP Pulse Ox 98.6 F 75 20 115/61 95 01/30/17 08:03 01/30/17 08:03 01/30/17 08:03 01/30/17 10:24 01/30/17 08:03 Intake and Output: 01/30/17 01/30/17 06:59 18:59 Intake Total 100 Output Total 300 Balance 100 -300 - Medications Medications: Current Medications Furosemide (Lasix) 40 mg IVP DAILY [facility] Last Admin: 01/30/17 10:24 Dose: 40 mg Hydrocortisone (Cortizone 0.5%) 0 ea TOP BID PRN PRN Reason: rash and itching Insulin Aspart (Novolog) 0 unit SC ACHS [facility] PRN Reason: Protocol Last Admin: 01/30/17 12:29 Dose: 4 unit Insulin Aspart (Novolog Mix 70/30 (70/30 Units/Ml)) 20 units SC BIDAC [facility] Last Admin: 01/30/17 08:03 Dose: 20 units Lactulose (Enulose) 20 gm PO Q6H [facility] Last Admin: 01/30/17 11:22 Dose: 20 gm Pantoprazole Sodium (Protonix Ec Tab) 40 mg PO DAILY [facility] Last Admin: 01/30/17 10:25 Dose: 40 mg Spironolactone (Aldactone) 100 mg PO DAILY [facility] Last Admin: 01/30/17 10:25 Dose: 100 mg - Labs Labs: 01/30/17 06:50 01/30/17 06:50 PT 18.3 SECONDS (9.7-12.2) H 01/28/17 07:10 INR 1.6 01/28/17 07:10 APTT 36 SECONDS (21-34) H 01/28/17 07:10 - Constitutional Appears: Non-toxic, No Acute Distress - Head Exam Head Exam: NORMAL INSPECTION - Eye Exam Eye Exam: EOMI - ENT Exam ENT Exam: Mucous Membranes Moist - Respiratory Exam Respiratory Exam: Clear to Ausculation Bilateral, NORMAL BREATHING PATTERN - Cardiovascular Exam Cardiovascular Exam: REGULAR RHYTHM, +S1, +S2 - GI/Abdominal Exam GI & Abdominal Exam: Distended, Soft, Tenderness (diffuse ) - Extremities Exam Extremities Exam: Pedal Edema - Neurological Exam Neurological Exam: Alert, Awake - Psychiatric Exam Psychiatric exam: Flat Affect - Skin Skin Exam: Dry, Intact, Rash, Warm Assessment and Plan - Assessment and Plan (Free Text) Assessment: Hx of Hepatitis C with cirrhosis * GI consulted (Dr. Cho), recs appreciated * negative Hep A and Hep B, Hep C: reactive * F/U HCV genotype and viral load Ascites with abdominal pain * Urine Culture: no growth * IR consulted for therapeutic/diagnostic paracentesis, patient refused * Lasix 40 mg PO BID * Spironolactone 25 mg PO QD * Monitor I&Os * CXR 01/27: mild cardiomegaly, mild central pulmonary venous congestion- slightly increased. No definitive pleural effusion. Encephalopathy * Ammonia 81 (01/29) * Lactulose 20 gm PO q6h * monitor * PT ordered Rash * Hydrocortisone cream 0.5% BID PRN pruritis Right inguinal hernia * followed by unknown general surgeon - try to clarify Supraumbilical hernia * Hx of supraumbilical mass for 1 yr per patient * consider General surgery consult if symptomatic or nonreducible IDDM * Sliding scale insulin * Insulin 70/30 increased to 15 u BID * monitor glucose * Consistent Carb diet (MOD) * HbA1c: 13 * Triglycerides: 163, Cholesterol: 187, LDL: 87, HDL: 55 Thrombocytopenia * Pt with hx of this since Jan 2015 * Dr. Tolliver, heme/onc, consulted - patient refused transfusion * PT: 18.3, PTT: 36, INR: 1.6 Leukopenia * Pt with hx of this since Jan 2015 * Dr. Tolliver, heme/onc, consulted GI and DVT PPX * Protonix 40 mg PO QD * Contraindication to DVT prophylaxis 2/2 LE edema and low platelets <Wilfred Schulte - Last Filed: 01/31/17 15:53> Objective - Vital Signs/Intake and Output Vital Signs (last 24 hours): Temp Pulse Resp BP Pulse Ox 98.1 F 84 20 118/63 94 L 01/31/17 15:32 01/31/17 15:32 01/31/17 15:32 01/31/17 15:32 01/31/17 15:32 Intake and Output: 01/31/17 01/31/17 06:59 18:59 Intake Total 450 Balance 450 - Medications Medications: Current Medications Furosemide (Lasix) 40 mg IVP DAILY [facility] Last Admin: 01/31/17 09:57 Dose: 40 mg Hydrocortisone (Cortizone 0.5%) 0 ea TOP BID PRN PRN Reason: rash and itching Insulin Aspart (Novolog) 0 unit SC ACHS [facility] PRN Reason: Protocol Last Admin: 01/31/17 12:42 Dose: 10 unit Insulin Aspart (Novolog Mix 70/30 (70/30 Units/Ml)) 25 units SC BIDAC [facility] Lactulose (Enulose) 20 gm PO Q6H [facility] Last Admin: 01/31/17 10:50 Dose: 20 gm Pantoprazole Sodium (Protonix Ec Tab) 40 mg PO DAILY [facility] Last Admin: 01/31/17 09:56 Dose: 40 mg Spironolactone (Aldactone) 100 mg PO DAILY [facility] Last Admin: 01/31/17 09:56 Dose: 100 mg - Labs Labs: 01/31/17 08:18 01/31/17 08:18 PT 18.3 SECONDS (9.7-12.2) H 01/28/17 07:10 INR 1.6 01/28/17 07:10 APTT 36 SECONDS (21-34) H 01/28/17 07:10 Attending/Attestation - Attestation I have personally seen and examined this patient.: Yes I have fully participated in the care of the patient.: Yes I have reviewed all pertinent clinical information, including history, physical exam and plan: Yes Notes (Text): 01/31/17 15:52 Patient was seen and examined at bedside with the resident Patient's mental status is improved slightly Continue lactulose. Ammonia level is trending down. I discussed the plan of care with the resident and agree with the history and physical and assessment/plan documented by the resident.
[2017-01-31] MEDS: (Novolog Mix 70/30) Insulin Aspart/Insulin Aspar 100 units/ml SC SCH ×2 (08:31→17:23)
[2017-01-31] MEDS: (Novolog) Insulin Aspart, Recombinant 100 u/ml 10 ml vial SC SCH ×5 (08:32→21:41)
[2017-01-31 08:40] LABS: EOS # 0.1 K/uL (0.0-0.7); EOS % 2.7 % (0.0-4.0); HEMATOCRIT 41.6 % (35.0-51.0); LYMPH # 0.6 K/uL (1.0-4.3); LYMPH % 22.6 % (20.0-40.0); MEAN CELL VOLUME 89.9 fL (80.0-94.0); MEAN CORPUSCULAR HEMOGLOBIN 30.1 pg (27.0-31.0); MEAN CORPUSCULAR HGB CONC 33.5 g/dL (33.0-37.0); MEAN PLATELET VOLUME 7.9 fL (7.2-11.7); MONO # 0.4 K/uL (0.0-0.8); MONO % 15.7 % (0.0-10.0); NRBC % 0.4 % (0.0-2.0); RED CELL DISTRIBUTION WIDTH 16.1 % (11.5-14.5); WHITE BLOOD COUNT 2.5 K/uL (4.8-10.8)
[2017-01-31 09:16] LABS: CHLORIDE 106 mmol/L (98-107); POTASSIUM 3.7 mmol/L (3.6-5.2); SODIUM 139 mmol/L (132-148)
[2017-01-31 09:18] LABS: AST/SGOT 52 U/L (17-59); CARBON DIOXIDE 26 mmol/L (22-30); GFR AFRICAN-AMERICAN > 60
[2017-01-31 09:19] LABS: ALB/GLOB RATIO 0.6 (1.0-2.1); ALKALINE PHOSPHATASE 164 U/L (38-126); ALT/SGPT 48 U/L (21-72); BLOOD UREA NITROGEN 11 mg/dL (9-20); CALCIUM 8.1 mg/dl (8.6-10.4); GLUCOSE,RANDOM 289 mg/dL (75-110); PHOSPHOROUS 3.2 mg/dL (2.5-4.5); TOTAL PROTEIN 6.1 g/dL (6.3-8.3)
[2017-01-31 09:20] LABS: MAGNESIUM 1.5 mg/dL (1.6-2.3)
[2017-01-31] MEDS: Pantoprazole 40 mg EC Tab PO SCH (09:56)
[2017-01-31] MEDS: Magnesium Sulfate 1 gm in D5W 1 GM/100 ML BAG IVPB SCH ×2 (11:09→12:08)
--- NOTE | 2017-01-31 19:57 | CP.PCM.PN ---
<Karen Luo DO - Last Filed: 01/31/17 19:54> Subjective - Date & Time of Evaluation Date of Evaluation: 01/31/17 Time of Evaluation: 12:10 - Subjective Subjective: Medicine progress note for Dr Schulte Patient seen and examined. Patient doing well, no complaints. States stomach is large but not painful. Objective - Vital Signs/Intake and Output Vital Signs (last 24 hours): Temp Pulse Resp BP Pulse Ox 98.1 F 84 20 118/63 94 L 01/31/17 15:32 01/31/17 15:32 01/31/17 15:32 01/31/17 15:32 01/31/17 15:32 Intake and Output: 01/31/17 02/01/17 18:59 06:59 Intake Total 650 Balance 650 - Medications Medications: Current Medications Furosemide (Lasix) 40 mg IVP DAILY [facility] Last Admin: 01/31/17 09:57 Dose: 40 mg Hydrocortisone (Cortizone 0.5%) 0 ea TOP BID PRN PRN Reason: rash and itching Insulin Aspart (Novolog) 0 unit SC ACHS [facility] PRN Reason: Protocol Last Admin: 01/31/17 17:22 Dose: 12 unit Insulin Aspart (Novolog Mix 70/30 (70/30 Units/Ml)) 25 units SC BIDAC [facility] Last Admin: 01/31/17 17:23 Dose: 25 units Lactulose (Enulose) 20 gm PO Q6H [facility] Last Admin: 01/31/17 17:20 Dose: 20 gm Pantoprazole Sodium (Protonix Ec Tab) 40 mg PO DAILY [facility] Last Admin: 01/31/17 09:56 Dose: 40 mg Spironolactone (Aldactone) 100 mg PO DAILY [facility] Last Admin: 01/31/17 09:56 Dose: 100 mg - Labs Labs: 01/31/17 08:18 01/31/17 08:18 PT 18.3 SECONDS (9.7-12.2) H 01/28/17 07:10 INR 1.6 01/28/17 07:10 APTT 36 SECONDS (21-34) H 01/28/17 07:10 - Constitutional Appears: Non-toxic, No Acute Distress - Head Exam Head Exam: ATRAUMATIC, NORMOCEPHALIC - Eye Exam Eye Exam: EOMI - ENT Exam ENT Exam: Mucous Membranes Moist - Respiratory Exam Respiratory Exam: Clear to Ausculation Bilateral, NORMAL BREATHING PATTERN - Cardiovascular Exam Cardiovascular Exam: +S1, +S2 - GI/Abdominal Exam GI & Abdominal Exam: Distended, Normal Bowel Sounds. absent: Tenderness - Extremities Exam Extremities Exam: Pedal Edema (trace). absent: Calf Tenderness - Neurological Exam Neurological Exam: Alert, Awake - Skin Skin Exam: Dry, Warm Assessment and Plan - Assessment and Plan (Free Text) Assessment: Hx of Hepatitis C with cirrhosis * GI consulted (Dr. Cho), recs appreciated * negative Hep A and Hep B, Hep C: reactive * HCV RNA PCR IUs/mL <15, RNA PCR log IUs <1.18 not detected Ascites with abdominal pain * Urine Culture: no growth * IR consulted for therapeutic/diagnostic paracentesis, patient refused * Lasix 40 mg IVP daily * Spironolactone 100mg PO QD * Monitor I&Os * CXR 01/27: mild cardiomegaly, mild central pulmonary venous congestion- slightly increased. No definitive pleural effusion. Encephalopathy * Ammonia 81 (01/29) * Lactulose 20 gm PO q6h * monitor * PT ordered Rash * Hydrocortisone cream 0.5% BID PRN pruritis Right inguinal hernia * followed by unknown general surgeon - try to clarify Supraumbilical hernia * Hx of supraumbilical mass for 1 yr per patient * consider General surgery consult if symptomatic or nonreducible IDDM * Sliding scale insulin high dose * Insulin 70/30 increased to 25 u BIDAC * monitor glucose * Consistent Carb diet (MOD) * HbA1c: 13 * Triglycerides: 163, Cholesterol: 187, LDL: 87, HDL: 55 Thrombocytopenia * plt 33 * Pt with hx of this since Jan 2015 * Dr. Tolliver, heme/onc, consulted - patient refused transfusion * PT: 18.3, PTT: 36, INR: 1.6 Leukopenia * Pt with hx of this since Jan 2015 * Dr. Tolliver, heme/onc, consulted GI and DVT PPX * Protonix 40 mg PO QD * Contraindication to DVT prophylaxis 2/2 LE edema and low platelets <Wilfred Schulte - Last Filed: 01/31/17 23:43> Objective - Vital Signs/Intake and Output Vital Signs (last 24 hours): Temp Pulse Resp BP Pulse Ox 98.1 F 84 20 118/63 94 L 01/31/17 15:32 01/31/17 15:32 01/31/17 15:32 01/31/17 15:32 01/31/17 15:32 Intake and Output: 01/31/17 02/01/17 18:59 06:59 Intake Total 650 Balance 650 - Medications Medications: Current Medications Furosemide (Lasix) 40 mg IVP DAILY [facility] Last Admin: 01/31/17 09:57 Dose: 40 mg Hydrocortisone (Cortizone 0.5%) 0 ea TOP BID PRN PRN Reason: rash and itching Insulin Aspart (Novolog) 0 unit SC ACHS [facility] PRN Reason: Protocol Last Admin: 01/31/17 21:41 Dose: 3 unit Insulin Aspart (Novolog Mix 70/30 (70/30 Units/Ml)) 25 units SC BIDAC [facility] Last Admin: 01/31/17 17:23 Dose: 25 units Lactulose (Enulose) 20 gm PO Q6H [facility] Last Admin: 01/31/17 17:20 Dose: 20 gm Pantoprazole Sodium (Protonix Ec Tab) 40 mg PO DAILY [facility] Last Admin: 01/31/17 09:56 Dose: 40 mg Spironolactone (Aldactone) 100 mg PO DAILY [facility] Last Admin: 01/31/17 09:56 Dose: 100 mg - Labs Labs: 01/31/17 08:18 01/31/17 08:18 PT 18.3 SECONDS (9.7-12.2) H 01/28/17 07:10 INR 1.6 01/28/17 07:10 APTT 36 SECONDS (21-34) H 01/28/17 07:10 Attending/Attestation - Attestation I have personally seen and examined this patient.: Yes I have fully participated in the care of the patient.: Yes I have reviewed all pertinent clinical information, including history, physical exam and plan: Yes Notes (Text): 01/31/17 23:43 patient was seen and examined at bedside with the resident. Patient stated that he is feeling much better today. Patient's mental status is improved. He stated that he is able to ambulate to and he has been going to the bathroom. I discussed the plan of care with the resident and agree with the assessment and plan documented.
--- NOTE | 2017-01-31 21:18 | CP.PCM.PN ---
Subjective - Date & Time of Evaluation Date of Evaluation: 01/31/17 Time of Evaluation: 18:00 - Subjective Subjective: Feeling better Objective - Vital Signs/Intake and Output Vital Signs (last 24 hours): Temp Pulse Resp BP Pulse Ox 98.1 F 84 20 118/63 94 L 01/31/17 15:32 01/31/17 15:32 01/31/17 15:32 01/31/17 15:32 01/31/17 15:32 Intake and Output: 01/31/17 02/01/17 18:59 06:59 Intake Total 650 Balance 650 - Medications Medications: Current Medications Furosemide (Lasix) 40 mg IVP DAILY [facility] Last Admin: 01/31/17 09:57 Dose: 40 mg Hydrocortisone (Cortizone 0.5%) 0 ea TOP BID PRN PRN Reason: rash and itching Insulin Aspart (Novolog) 0 unit SC ACHS [facility] PRN Reason: Protocol Last Admin: 01/31/17 17:22 Dose: 12 unit Insulin Aspart (Novolog Mix 70/30 (70/30 Units/Ml)) 25 units SC BIDAC [facility] Last Admin: 01/31/17 17:23 Dose: 25 units Lactulose (Enulose) 20 gm PO Q6H [facility] Last Admin: 01/31/17 17:20 Dose: 20 gm Pantoprazole Sodium (Protonix Ec Tab) 40 mg PO DAILY [facility] Last Admin: 01/31/17 09:56 Dose: 40 mg Spironolactone (Aldactone) 100 mg PO DAILY [facility] Last Admin: 01/31/17 09:56 Dose: 100 mg - Labs Labs: 01/31/17 08:18 01/31/17 08:18 PT 18.3 SECONDS (9.7-12.2) H 01/28/17 07:10 INR 1.6 01/28/17 07:10 APTT 36 SECONDS (21-34) H 01/28/17 07:10 - Head Exam Head Exam: ATRAUMATIC - Eye Exam Eye Exam: Normal appearance - ENT Exam ENT Exam: Mucous Membranes Dry - Respiratory Exam Respiratory Exam: NORMAL BREATHING PATTERN - Cardiovascular Exam Cardiovascular Exam: +S1, +S2 - GI/Abdominal Exam GI & Abdominal Exam: Normal Bowel Sounds Assessment and Plan (1) Thrombocytopenia Assessment & Plan: secondary to hep c liver cirrhosis splenic sequestration deferred plt transfusion Status: Acute (2) Leukopenia Assessment & Plan: hep c liver disease splenic sequestration Status: Acute (3) Coagulopathy Assessment & Plan: liver disease Status: Acute (4) Tobacco abuse Assessment & Plan: smoking cessation Status: Acute
--- NOTE | 2017-02-01 07:43 | CP.PCM.PN ---
<Radha Solomon - Last Filed: 02/01/17 10:30> Subjective - Date & Time of Evaluation Date of Evaluation: 02/01/17 Time of Evaluation: 09:00 - Subjective Subjective: Medicine Progress Note: Patient was seen and examined at bedside in the AM. Per nurse no acute events overnight. Patient continues to just state he has diabetes but he has no other complaints. Objective - Vital Signs/Intake and Output Vital Signs (last 24 hours): Temp Pulse Resp BP Pulse Ox 99 F 78 20 130/76 96 02/01/17 00:00 02/01/17 00:00 02/01/17 00:00 02/01/17 00:00 02/01/17 00:00 - Medications Medications: Current Medications Furosemide (Lasix) 40 mg IVP DAILY [facility] Last Admin: 01/31/17 09:57 Dose: 40 mg Hydrocortisone (Cortizone 0.5%) 0 ea TOP BID PRN PRN Reason: rash and itching Insulin Aspart (Novolog) 0 unit SC ACHS [facility] PRN Reason: Protocol Last Admin: 01/31/17 21:41 Dose: 3 unit Insulin Aspart (Novolog Mix 70/30 (70/30 Units/Ml)) 25 units SC BIDAC [facility] Last Admin: 01/31/17 17:23 Dose: 25 units Lactulose (Enulose) 20 gm PO Q6H [facility] Last Admin: 02/01/17 05:36 Dose: Not Given Pantoprazole Sodium (Protonix Ec Tab) 40 mg PO DAILY [facility] Last Admin: 01/31/17 09:56 Dose: 40 mg Spironolactone (Aldactone) 100 mg PO DAILY [facility] Last Admin: 01/31/17 09:56 Dose: 100 mg - Labs Labs: 01/31/17 08:18 01/31/17 08:18 PT 18.3 SECONDS (9.7-12.2) H 01/28/17 07:10 INR 1.6 01/28/17 07:10 APTT 36 SECONDS (21-34) H 01/28/17 07:10 - Constitutional Appears: No Acute Distress - Head Exam Head Exam: ATRAUMATIC, NORMAL INSPECTION, NORMOCEPHALIC - Eye Exam Eye Exam: EOMI, Normal appearance, PERRL Pupil Exam: NORMAL ACCOMODATION, PERRL - ENT Exam ENT Exam: Mucous Membranes Moist - Respiratory Exam Respiratory Exam: Clear to Ausculation Bilateral, NORMAL BREATHING PATTERN - Cardiovascular Exam Cardiovascular Exam: REGULAR RHYTHM, RRR, +S1, +S2 - GI/Abdominal Exam GI & Abdominal Exam: Soft, Hernia (umbilical), Normal Bowel Sounds. absent: Tenderness - Extremities Exam Extremities Exam: Normal Inspection. absent: Pedal Edema, Tenderness - Neurological Exam Neurological Exam: Alert, Awake - Psychiatric Exam Psychiatric exam: Normal Affect, Normal Mood - Skin Skin Exam: Normal Color, Warm Assessment and Plan - Assessment and Plan (Free Text) Plan: Hx of Hepatitis C with cirrhosis * GI consulted (Dr. Cho), recs appreciated * negative Hep A and Hep B, Hep C: reactive * HCV RNA PCR IUs/mL <15, RNA PCR log IUs <1.18 not detected Ascites with abdominal pain * Urine Culture: no growth * IR consulted for therapeutic/diagnostic paracentesis, patient refused * Lasix 40 mg IVP daily * Spironolactone 100mg PO QD * Monitor I&Os * CXR 01/27: mild cardiomegaly, mild central pulmonary venous congestion- slightly increased. No definitive pleural effusion. Encephalopathy * Ammonia 81 (01/29) * Lactulose 20 gm PO BID * monitor * PT ordered Rash * Hydrocortisone cream 0.5% BID PRN pruritis Right inguinal hernia * followed by unknown general surgeon - try to clarify Supraumbilical hernia * Hx of supraumbilical mass for 1 yr per patient * consider General surgery consult if symptomatic or nonreducible IDDM * Sliding scale insulin high dose * Insulin 70/30 increased to 25 u BIDAC * monitor glucose * Consistent Carb diet (MOD) * HbA1c: 13 * Triglycerides: 163, Cholesterol: 187, LDL: 87, HDL: 55 Thrombocytopenia * plt 33 * Pt with hx of this since Jan 2015 * Dr. Tolliver, heme/onc, consulted - patient refused transfusion * PT: 18.3, PTT: 36, INR: 1.6 Leukopenia * Pt with hx of this since Jan 2015 * Dr. Tolliver, heme/onc, consulted GI and DVT PPX * Protonix 40 mg PO QD * Contraindication to DVT prophylaxis 2/2 LE edema and low platelets Case Discussed with Dr. Franca Solomon - PGY1 <Wilfred Schulte - Last Filed: 02/01/17 13:38> Objective - Vital Signs/Intake and Output Vital Signs (last 24 hours): Temp Pulse Resp BP Pulse Ox 98.4 F 89 20 133/72 95 02/01/17 08:00 02/01/17 08:00 02/01/17 08:00 02/01/17 10:10 02/01/17 08:00 - Medications Medications: Current Medications Furosemide (Lasix) 40 mg IVP DAILY [facility] Last Admin: 02/01/17 10:10 Dose: 40 mg Hydrocortisone (Cortizone 0.5%) 0 ea TOP BID PRN PRN Reason: rash and itching Insulin Aspart (Novolog) 0 unit SC ACHS [facility] PRN Reason: Protocol Last Admin: 02/01/17 12:16 Dose: 10 unit Insulin Aspart (Novolog Mix 70/30 (70/30 Units/Ml)) 30 units SC BIDAC [facility] Lactulose (Enulose) 20 gm PO BID [facility] Pantoprazole Sodium (Protonix Ec Tab) 40 mg PO DAILY [facility] Last Admin: 02/01/17 10:10 Dose: 40 mg Spironolactone (Aldactone) 100 mg PO DAILY [facility] Last Admin: 02/01/17 10:10 Dose: 100 mg - Labs Labs: 02/01/17 08:05 02/01/17 08:05 PT 18.3 SECONDS (9.7-12.2) H 01/28/17 07:10 INR 1.6 01/28/17 07:10 APTT 36 SECONDS (21-34) H 01/28/17 07:10 Attending/Attestation - Attestation I have personally seen and examined this patient.: Yes I have fully participated in the care of the patient.: Yes I have reviewed all pertinent clinical information, including history, physical exam and plan: Yes Notes (Text): 02/01/17 13:37 Patient was seen and examined at bedside with the resident. Patient's mental status is improved significantly. Patient is able to ambulate. Patient is stating that he is having frequent bowel movements. We will reduce the dose of lactulose. Continue current medical management. Patient is refusing paracentesis. Discharge planning likely in the next 24-48 hours if the patient is medically stable.
[2017-02-01 08:20] LABS: BASO % 0.9 % (0.0-2.0); EOS # 0.1 K/uL (0.0-0.7); EOS % 2.8 % (0.0-4.0); LYMPH # 0.6 K/uL (1.0-4.3); LYMPH % 22.4 % (20.0-40.0); MEAN CORPUSCULAR HGB CONC 33.4 g/dL (33.0-37.0); MEAN PLATELET VOLUME 8.1 fL (7.2-11.7); MONO # 0.4 K/uL (0.0-0.8); MONO % 16.4 % (0.0-10.0); NRBC % 0.3 % (0.0-2.0); RED CELL DISTRIBUTION WIDTH 16.1 % (11.5-14.5); WHITE BLOOD COUNT 2.5 K/uL (4.8-10.8)
[2017-02-01] MEDS: (Novolog) Insulin Aspart, Recombinant 100 u/ml 10 ml vial SC SCH ×4 (08:35→21:49)
[2017-02-01] MEDS: (Novolog Mix 70/30) Insulin Aspart/Insulin Aspar 100 units/ml SC SCH ×2 (08:36→17:20)
[2017-02-01 08:37] LABS: ALKALINE PHOSPHATASE 141 U/L (38-126); ALT/SGPT 45 U/L (21-72); AST/SGOT 43 U/L (17-59); BILIRUBIN,TOTAL 3.7 mg/dL (0.2-1.3); BLOOD UREA NITROGEN 10 mg/dL (9-20); CALCIUM 7.8 mg/dl (8.6-10.4); CARBON DIOXIDE 25 mmol/L (22-30); CHLORIDE 102 mmol/L (98-107); GFR AFRICAN-AMERICAN > 60; GLUCOSE,RANDOM 316 mg/dL (75-110); MAGNESIUM 1.6 mg/dL (1.6-2.3); PHOSPHOROUS 2.8 mg/dL (2.5-4.5); POTASSIUM 3.8 mmol/L (3.6-5.2); SODIUM 133 mmol/L (132-148); TOTAL PROTEIN 5.2 g/dL (6.3-8.3)
[2017-02-01 08:41] LABS: ALB/GLOB RATIO 0.6 (1.0-2.1)
[2017-02-01] MEDS: Pantoprazole 40 mg EC Tab PO SCH (10:10)
[2017-02-02 08:25] LABS: BASO % 0.9 % (0.0-2.0); EOS # 0.1 K/uL (0.0-0.7); HEMATOCRIT 40.3 % (35.0-51.0); LYMPH # 0.5 K/uL (1.0-4.3); LYMPH % 20.7 % (20.0-40.0); MEAN CELL VOLUME 89.2 fL (80.0-94.0); MEAN CORPUSCULAR HEMOGLOBIN 29.7 pg (27.0-31.0); MEAN CORPUSCULAR HGB CONC 33.3 g/dL (33.0-37.0); MEAN PLATELET VOLUME 8.5 fL (7.2-11.7); MONO # 0.4 K/uL (0.0-0.8); MONO % 16.8 % (0.0-10.0); NRBC % 0.2 % (0.0-2.0); RED CELL DISTRIBUTION WIDTH 15.6 % (11.5-14.5); WHITE BLOOD COUNT 2.6 K/uL (4.8-10.8)
[2017-02-02] MEDS: (Novolog) Insulin Aspart, Recombinant 100 u/ml 10 ml vial SC SCH ×3 (08:29→17:20)
[2017-02-02] MEDS: (Novolog Mix 70/30) Insulin Aspart/Insulin Aspar 100 units/ml SC SCH ×2 (08:30→17:19)
[2017-02-02 08:38] LABS: ALB/GLOB RATIO 0.6 (1.0-2.1); ALKALINE PHOSPHATASE 159 U/L (38-126); ALT/SGPT 45 U/L (21-72); AST/SGOT 47 U/L (17-59); BLOOD UREA NITROGEN 10 mg/dL (9-20); CALCIUM 7.9 mg/dl (8.6-10.4); CARBON DIOXIDE 26 mmol/L (22-30); CHLORIDE 100 mmol/L (98-107); GFR AFRICAN-AMERICAN > 60; GLUCOSE,RANDOM 287 mg/dL (75-110); MAGNESIUM 1.5 mg/dL (1.6-2.3); PHOSPHOROUS 2.4 mg/dL (2.5-4.5); POTASSIUM 4.4 mmol/L (3.6-5.2); SODIUM 134 mmol/L (132-148); TOTAL PROTEIN 5.8 g/dL (6.3-8.3)
[2017-02-02] MEDS: Pantoprazole 40 mg EC Tab PO SCH (10:06)
--- NOTE | 2017-02-02 14:26 | CP.PCM.DIS ---
<Prasanth Monteiro - Last Filed: 02/02/17 14:46> Provider - Provider Date of Admission: 01/27/17 13:00 Attending physician: Wilfred Schulte MD Primary care physician: clinic Consults: GI: Marquis Heme: [place] Time Spent in preparation of Discharge (in minutes): 45 Hospital Course - Lab Results Lab Results: Most Recent Lab Values WBC 2.6 K/uL (4.8-10.8) L 02/02/17 08:18 RBC 4.51 Mil/uL (4.40-5.90) 02/02/17 08:18 Hgb 13.4 g/dL (12.0-18.0) 02/02/17 08:18 Hct 40.3 % (35.0-51.0) 02/02/17 08:18 MCV 89.2 fL (80.0-94.0) 02/02/17 08:18 MCH 29.7 pg (27.0-31.0) 02/02/17 08:18 MCHC 33.3 g/dL (33.0-37.0) 02/02/17 08:18 RDW 15.6 % (11.5-14.5) H 02/02/17 08:18 Plt Count 35 K/uL (130-400) L 02/02/17 08:18 MPV 8.5 fL (7.2-11.7) 02/02/17 08:18 Neut % (Auto) 58.6 % (50.0-75.0) 02/02/17 08:18 Lymph % (Auto) 20.7 % (20.0-40.0) 02/02/17 08:18 [place] % (Auto) 16.8 % (0.0-10.0) H 02/02/17 08:18 Eos % (Auto) 3.0 % (0.0-4.0) 02/02/17 08:18 Baso % (Auto) 0.9 % (0.0-2.0) 02/02/17 08:18 Neut # 1.5 K/uL (1.8-7.0) L 02/02/17 08:18 Lymph # 0.5 K/uL (1.0-4.3) L 02/02/17 08:18 [place] # 0.4 K/uL (0.0-0.8) 02/02/17 08:18 Eos # 0.1 K/uL (0.0-0.7) 02/02/17 08:18 Baso # 0.0 K/uL (0.0-0.2) 02/02/17 08:18 Differential Comment 01/27/17 10:35 PT 18.3 SECONDS (9.7-12.2) H 01/28/17 07:10 INR 1.6 01/28/17 07:10 APTT 36 SECONDS (21-34) H 01/28/17 07:10 Sodium 134 mmol/L (132-148) 02/02/17 08:18 Potassium 4.4 mmol/L (3.6-5.2) 02/02/17 08:18 Chloride 100 mmol/L (98-107) 02/02/17 08:18 Carbon Dioxide 26 mmol/L (22-30) 02/02/17 08:18 Anion Gap 12 (10-20) 02/02/17 08:18 BUN 10 mg/dL (9-20) 02/02/17 08:18 Creatinine 0.5 MG/DL (0.8-1.5) L 02/02/17 08:18 Est GFR ( Amer) > 60 02/02/17 08:18 Est GFR (Non-Af Amer) > 60 02/02/17 08:18 POC Glucose (mg/dL) 342 mg/dL (65-110) H 02/02/17 11:25 Random Glucose 287 mg/dL (75-110) H 02/02/17 08:18 Hemoglobin A1c 13.0 % (4.2-6.5) H 01/28/17 07:10 Calcium 7.9 mg/dl (8.6-10.4) L 02/02/17 08:18 Phosphorus 2.4 mg/dL (2.5-4.5) L 02/02/17 08:18 Magnesium 1.5 mg/dL (1.6-2.3) L 02/02/17 08:18 Total Bilirubin 4.0 mg/dL (0.2-1.3) H 02/02/17 08:18 AST 47 U/L (17-59) 02/02/17 08:18 ALT 45 U/L (21-72) 02/02/17 08:18 Alkaline Phosphatase 159 U/L (38-126) H 02/02/17 08:18 Ammonia 47 umol/L (9-33) H D 01/30/17 06:50 NT-Pro-B Natriuret Pep 140 pg/mL (0-900) 01/27/17 10:35 Total Protein 5.8 g/dL (6.3-8.3) L 02/02/17 08:18 Albumin 2.2 g/dL (3.5-5.0) L 02/02/17 08:18 Globulin 3.6 gm/dL (2.2-3.9) 02/02/17 08:18 Albumin/Globulin Ratio 0.6 (1.0-2.1) L 02/02/17 08:18 Triglycerides 163 mg/dL (0-149) H D 01/28/17 07:10 Cholesterol 187 mg/dL (0-199) 01/28/17 07:10 LDL Cholesterol Direct 87 mg/dL (0-129) 01/28/17 07:10 HDL Cholesterol 55 mg/dL (30-70) 01/28/17 07:10 Lipase 207 U/L (23-300) 01/27/17 10:35 Alpha Fetoprotein 1.5 ng/mL (0.0-7.5) 01/28/17 12:54 Urine Color Yellow (YELLOW) 01/27/17 10:18 Urine Clarity Clear (Clear) 01/27/17 10:18 Urine pH 6.0 (5.0-8.0) 01/27/17 10:18 Ur Specific Kulm 1.038 (1.003-1.030) H 01/27/17 10:18 Urine Protein Negative mg/dL (NEGATIVE) 01/27/17 10:18 Urine Glucose (UA) 3+ mg/dL (Normal) H 01/27/17 10:18 Urine Ketones Trace mg/dL (NEGATIVE) 01/27/17 10:18 Urine Blood Negative (NEGATIVE) 01/27/17 10:18 Urine Nitrate Negative (NEGATIVE) 01/27/17 10:18 Urine Bilirubin Negative (NEGATIVE) 01/27/17 10:18 Urine Urobilinogen Normal mg/dL (0.2-1.0) 01/27/17 10:18 Ur Leukocyte Esterase Neg Justin/uL (Negative) 01/27/17 10:18 Urine WBC (Auto) < 1 /hpf (0-5) 01/27/17 10:18 Urine RBC (Auto) 1 /hpf (0-3) 01/27/17 10:18 Hepatitis A IgM Ab Negative (NEGATIVE) 01/28/17 07:10 Hep Bs Antigen Negative (NEGATIVE) 01/28/17 07:10 Hep Bs Antibody Positive (NEGATIVE) 01/28/17 07:10 Hep B Core IgM Ab Negative (NEGATIVE) 01/28/17 07:10 Hepatitis C Antibody Reactive (NEGATIVE) 01/28/17 07:10 HCV RNA (PCR) IUs/ml <15 not detected IU/mL (<15) 01/28/17 17:11 HCV RNA PCR log IUs/ml <1.18 not detected Log IU/mL (<1.18) 01/28/17 17:11 - Hospital Course Hospital Course: On admission: Patient is a 61M from [place] with PMH Hepatitis C, Cirrhosis, R inguinal hernia, and IDDM who presented to the ED for increasing abdominal distention. Patient says he thinks it is ascites as he has had this in the past 2/2 cirrhosis. Patient says he noticed this about 1 week ago and it has been getting worse since then. In the past patient refused paracentesis and was treated with conservative medical management. Pt says he was seen at [facility] last year and was told he was a candidate for liver transplantation. Pt admits to associated 10 abdominal pain located mainly in the lower abdomen as well as pain in right groin consistent with right inguinal hernia that he has had for 6 months and is being followed by a general surgeon that he does not recall the name. Pt also admits to constipation but says his last BM was today although he had to strain. Patient admits to frequent urination which he says is normal for him. Patient denies f/c/n/v/d/blood in stool/sob/cp/[place]/ weakness/dizziness/vision changes/dysuria/extremity pain and weakness/recent travel. Dr. Cho saw the patient and evaluated him. The patient at that time was refusing any paracentesis. Dr. Cho recommended he follow up with him for a EGD and colonoscopy as an outpatient. Dr. mohan saw the patient as he was refusing transfusion at the time. A palliative care consult was done and they recommended a family meeting as the had a poor insight into the patients medical condition. The patient was started on IV lasix in order to further diurese him. The remainder of his stay was uneventful. He remained stable and was discharged on Diuretics and told to follow up for the remainder of his care. - Date & Time of H&P Date of H&P: 01/27/17 Time of H&P: 17:56 Discharge Exam - Head Exam Head Exam: ATRAUMATIC, NORMAL INSPECTION, NORMOCEPHALIC - Eye Exam Eye Exam: EOMI - ENT Exam ENT Exam: Mucous Membranes Moist - Respiratory Exam Respiratory Exam: NORMAL BREATHING PATTERN, UNREMARKABLE. absent: Rales, Rhonchi, Wheezes, Stridor - Cardiovascular Exam Cardiovascular Exam: REGULAR RHYTHM, RRR. absent: Bradycardia, Tachycardia, Gallop, JVD, Rubs, Systolic Murmur - GI/Abdominal Exam GI & Abdominal Exam: Distended, Normal Bowel Sounds, Soft. absent: Tenderness - Neurological Exam Neurological exam: Alert, Oriented x3 - Psychiatric Exam Psychiatric exam: Normal Affect, Normal Mood - Skin Skin Exam: Dry, Intact, Normal Color, Warm Discharge Plan - Discharge Medications Prescriptions: Furosemide [Lasix] 20 mg PO DAILY #30 udc Insulin Aspart/Insulin Aspar [Novolog Mix 70/30 (70/30 units/ml)] 25 units SC BIDAC #60 unit Lactulose [Enulose] 20 gm PO BID #60 Spironolactone [Aldactone] 100 mg PO DAILY #30 tab - Follow Up Plan Condition: STABLE Disposition: HOME/ ROUTINE Instructions: Spironolactone (By mouth), Furosemide (By mouth), Lactulose (By mouth), Insulin Aspart Protamine/Insulin Aspart (By injection), Cirrhosis (DC), Acute Abdominal Pain (DC), Diabetic Hyperglycemia (DC) Additional Instructions: From a GI standpoint, Patient is stable and clear for discharge. Please follow up with Dr. Cho in his office for your Hepatitis C, Ascites, and the need for a screening colonoscopy as well as a upper endoscopy for variceal screening. From a medical standpoint, patient is stable and clear for discharge. Patient should follow up in our clinic in one weeks time for follow up of Hepatitis C, Ascites, and the need for a screening colonoscopy as well as a upper endoscopy for variceal screening. He should also follow up for his uncontrolled diabetes. Patient should also follow up with a surgeon for evaluation of his R. inguinal hernia. Patient should return to the ER symptoms return or worsen. Prescription instructions will be provided at discharge Referrals: [facility] [Outside] Yuriy Cho MD [Staff Provider] - <Benoit Amaya - Last Filed: 02/02/17 15:33> Provider - Provider Date of Admission: 01/27/17 13:00 Attending physician: Wilfred Schulte MD Hospital Course - Lab Results Lab Results: Most Recent Lab Values WBC 2.6 K/uL (4.8-10.8) L 02/02/17 08:18 RBC 4.51 Mil/uL (4.40-5.90) 02/02/17 08:18 Hgb 13.4 g/dL (12.0-18.0) 02/02/17 08:18 Hct 40.3 % (35.0-51.0) 02/02/17 08:18 MCV 89.2 fL (80.0-94.0) 02/02/17 08:18 MCH 29.7 pg (27.0-31.0) 02/02/17 08:18 MCHC 33.3 g/dL (33.0-37.0) 02/02/17 08:18 RDW 15.6 % (11.5-14.5) H 02/02/17 08:18 Plt Count 35 K/uL (130-400) L 02/02/17 08:18 MPV 8.5 fL (7.2-11.7) 02/02/17 08:18 Neut % (Auto) 58.6 % (50.0-75.0) 02/02/17 08:18 Lymph % (Auto) 20.7 % (20.0-40.0) 02/02/17 08:18 [place] % (Auto) 16.8 % (0.0-10.0) H 02/02/17 08:18 Eos % (Auto) 3.0 % (0.0-4.0) 02/02/17 08:18 Baso % (Auto) 0.9 % (0.0-2.0) 02/02/17 08:18 Neut # 1.5 K/uL (1.8-7.0) L 02/02/17 08:18 Lymph # 0.5 K/uL (1.0-4.3) L 02/02/17 08:18 [place] # 0.4 K/uL (0.0-0.8) 02/02/17 08:18 Eos # 0.1 K/uL (0.0-0.7) 02/02/17 08:18 Baso # 0.0 K/uL (0.0-0.2) 02/02/17 08:18 Differential Comment 01/27/17 10:35 PT 18.3 SECONDS (9.7-12.2) H 01/28/17 07:10 INR 1.6 01/28/17 07:10 APTT 36 SECONDS (21-34) H 01/28/17 07:10 Sodium 134 mmol/L (132-148) 02/02/17 08:18 Potassium 4.4 mmol/L (3.6-5.2) 02/02/17 08:18 Chloride 100 mmol/L (98-107) 02/02/17 08:18 Carbon Dioxide 26 mmol/L (22-30) 02/02/17 08:18 Anion Gap 12 (10-20) 02/02/17 08:18 BUN 10 mg/dL (9-20) 02/02/17 08:18 Creatinine 0.5 MG/DL (0.8-1.5) L 02/02/17 08:18 Est GFR ( Amer) > 60 02/02/17 08:18 Est GFR (Non-Af Amer) > 60 02/02/17 08:18 POC Glucose (mg/dL) 342 mg/dL (65-110) H 02/02/17 11:25 Random Glucose 287 mg/dL (75-110) H 02/02/17 08:18 Hemoglobin A1c 13.0 % (4.2-6.5) H 01/28/17 07:10 Calcium 7.9 mg/dl (8.6-10.4) L 02/02/17 08:18 Phosphorus 2.4 mg/dL (2.5-4.5) L 02/02/17 08:18 Magnesium 1.5 mg/dL (1.6-2.3) L 02/02/17 08:18 Total Bilirubin 4.0 mg/dL (0.2-1.3) H 02/02/17 08:18 AST 47 U/L (17-59) 02/02/17 08:18 ALT 45 U/L (21-72) 02/02/17 08:18 Alkaline Phosphatase 159 U/L (38-126) H 02/02/17 08:18 Ammonia 47 umol/L (9-33) H D 01/30/17 06:50 NT-Pro-B Natriuret Pep 140 pg/mL (0-900) 01/27/17 10:35 Total Protein 5.8 g/dL (6.3-8.3) L 02/02/17 08:18 Albumin 2.2 g/dL (3.5-5.0) L 02/02/17 08:18 Globulin 3.6 gm/dL (2.2-3.9) 02/02/17 08:18 Albumin/Globulin Ratio 0.6 (1.0-2.1) L 02/02/17 08:18 Triglycerides 163 mg/dL (0-149) H D 01/28/17 07:10 Cholesterol 187 mg/dL (0-199) 01/28/17 07:10 LDL Cholesterol Direct 87 mg/dL (0-129) 01/28/17 07:10 HDL Cholesterol 55 mg/dL (30-70) 01/28/17 07:10 Lipase 207 U/L (23-300) 01/27/17 10:35 Alpha Fetoprotein 1.5 ng/mL (0.0-7.5) 01/28/17 12:54 Urine Color Yellow (YELLOW) 01/27/17 10:18 Urine Clarity Clear (Clear) 01/27/17 10:18 Urine pH 6.0 (5.0-8.0) 01/27/17 10:18 Ur Specific [place] 1.038 (1.003-1.030) H 01/27/17 10:18 Urine Protein Negative mg/dL (NEGATIVE) 01/27/17 10:18 Urine Glucose (UA) 3+ mg/dL (Normal) H 01/27/17 10:18 Urine Ketones Trace mg/dL (NEGATIVE) 01/27/17 10:18 Urine Blood Negative (NEGATIVE) 01/27/17 10:18 Urine Nitrate Negative (NEGATIVE) 01/27/17 10:18 Urine Bilirubin Negative (NEGATIVE) 01/27/17 10:18 Urine Urobilinogen Normal mg/dL (0.2-1.0) 01/27/17 10:18 Ur Leukocyte Esterase Neg Justin/uL (Negative) 01/27/17 10:18 Urine WBC (Auto) < 1 /hpf (0-5) 01/27/17 10:18 Urine RBC (Auto) 1 /hpf (0-3) 01/27/17 10:18 Hepatitis A IgM Ab Negative (NEGATIVE) 01/28/17 07:10 Hep Bs Antigen Negative (NEGATIVE) 01/28/17 07:10 Hep Bs Antibody Positive (NEGATIVE) 01/28/17 07:10 Hep B Core IgM Ab Negative (NEGATIVE) 01/28/17 07:10 Hepatitis C Antibody Reactive (NEGATIVE) 01/28/17 07:10 HCV RNA (PCR) IUs/ml <15 not detected IU/mL (<15) 01/28/17 17:11 HCV RNA PCR log IUs/ml <1.18 not detected Log IU/mL (<1.18) 01/28/17 17:11 Attending/Attestation - Attestation I have personally seen and examined this patient.: Yes I have fully participated in the care of the patient.: Yes I have reviewed all pertinent clinical information, including history, physical exam and plan: Yes Notes (Text): 02/02/17 15:18 Medical attending: Patient was seen and examined by me. Agree with the above note by the resident. Patient as mentioned previously DID NOT want a paracentesis. He was already on lasix as well as aldactone and we explained to the patient he will need to continue with these. We encouraged the patient to follow up at the [facility] thank you Benoit Amaya
[2017-02-02 16:15] VITALS: BP 111/66; PULSE 76; TEMP 98.6; O2SAT 95
== END 2017-02-02 18:15 | disposition home or self-care (01) | DRG 205 ==
LOC: C.ER 09:52 → C.9E 13:00 → C.5T 14:36 → C.3T 01-29 12:09
PROVIDERS: ADMIT Internal Medicine; ATTEND Internal Medicine
DX: K71.51 Toxic liver disease with chronic active hepatitis with ascites (principal); D69.6 Thrombocytopenia, unspecified; D68.9 Coagulation defect, unspecified; D70.9 Neutropenia, unspecified; K76.6 Portal hypertension; I11.9 Hypertensive heart disease without heart failure; K74.60 Unspecified cirrhosis of liver; K71.10 Toxic liver disease with hepatic necrosis, without coma; K59.00 Constipation, unspecified; B18.2 Chronic viral hepatitis C; R14.0 Abdominal distension (gaseous); E10.9 Type 1 diabetes mellitus without complications; E78.00 Pure hypercholesterolemia, unspecified; F17.210 Nicotine dependence, cigarettes, uncomplicated; K40.20 Bilateral inguinal hernia, without obstruction or gangrene, not specified as recurrent; Z79.4 Long term (current) use of insulin; Z91.19 Patient's noncompliance with other medical treatment and regimen; L29.9 Pruritus, unspecified

== ENCOUNTER 2017-02-03 21:45 | Inpatient (IN) | payer OTHER ==
[2017-02-03 21:46] VITALS: BMI 23.6
--- NOTE | 2017-02-03 22:12 | C.PDOC ---
History Of Present Illness 61 y/o male comes in from home for confusion and agitation as per family. Unable to obtain history due to patient's condition. Time Seen by Provider: 02/03/17 22:12 Chief Complaint (Nursing): Altered Mental Status History Per: EMS History/Exam Limitations: Clinical Condition Onset/Duration Of Symptoms: Hrs Onset Of Symptoms: Cannot Confirm Onset Current Symptoms Are (Timing): Still Present Usual Baseline: Unknown Exacerbating Factor(s): Other (ascitis) Use Of Anticoag/Antiplatelets: No Speech Is: Stammering Severity: Moderate Pain Scale Rating Of: 4 Recent travel outside of the [place]: No Associated Symptoms: Confused, Agitated. denies: Fever, Chills Past Medical History Reviewed: Historical Data, Nursing Documentation, Vital Signs Vital Signs: Last Vital Signs Temp 99.1 F 02/03/17 22:04 Pulse 79 02/04/17 00:41 Resp 20 02/04/17 00:41 BP 135/75 02/04/17 00:41 Pulse Ox 97 02/04/17 01:35 - Medical History PMH: Diabetes, Hepatitis, HTN, Hypercholesterolemia Denies: Chronic Kidney Disease Family History: States: Hypertension - Social History Hx Tobacco Use: Yes Hx Alcohol Use: No Hx Substance Use: No - Immunization History Hx Tetanus Toxoid Vaccination: Yes Hx Influenza Vaccination: Yes Hx Pneumococcal Vaccination: No Review Of Systems Review Of Systems: ROS cannot be obtained secondary to pt's inabilty to answer questions. Physical Exam - Physical Exam Appears: Non-toxic, No Acute Distress Skin: Warm, Dry Head: Normacephalic Eye(s): bilateral: Normal Inspection Oral Mucosa: Dry Neck: Supple Chest: Symmetrical Cardiovascular: Rhythm Regular Respiratory: No Rales, Rhonchi (Scattered), No Wheezing Gastrointestinal/Abdominal: Soft, Organomegaly (Hepatomegaly), Distention, Hernia (Small umbilical hernia, reducible), Other ((+) mild fluid wave) Back: No CVA Tenderness Extremity: Normal ROM (x4), Pedal Edema (Trace pedal edema), Capillary Refill (< 2secs) Extremity: Bilateral: Atraumatic Pulses: Left Dorsalis Pedis: Normal, Right Dorsalis Pedis: Normal Neurological/Psych: No Oriented x3 (x1 to person) Disoriented To: Place, Time Gait: Unable To Assess ED Course And Treatment - Laboratory Results Result Diagrams: 02/03/17 22:17 02/03/17 22:17 ECG: Interpreted By Me, Viewed By Me ECG Rhythm: Sinus Rhythm (86), Nonspecific Changes O2 Sat by Pulse Oximetry: 97 (RA) Pulse Ox Interpretation: Normal - Radiology CXR: Interpreted by Me, Viewed By Me Disposition Discussed With : Austen España Comment: accepted the pt on his service and took over the care at 2AM Doctor Will See Patient In The: ED Counseled Patient/Family Regarding: Studies Performed, Diagnosis - Disposition Disposition: HOSPITALIZED Disposition Time: 22:12 Condition: GUARDED Forms: [place] (Citizen [place]) - Clinical Impression Clinical Impression: Increased ammonia level, Hepatic cirrhosis, Ascites, Change in mental status - Scribe Statement The provider has reviewed the documentation as recorded by the Scribe Luisana fournier All medical record entries made by the Scribe were at my direction and personally dictated by me. I have reviewed the chart and agree that the record accurately reflects my personal performance of the history, physical exam, medical decision making, and the department course for this patient. I have also personally directed, reviewed, and agree with the discharge instructions and disposition. Decision To Admit - Pt Status Changed To: Hospital Disposition Of: Inpatient - Admit Certification Admit to Inpatient:: After my assessment, the patient will require hospitalization for at least two midnights. This is because of the severity of symptoms shown, intensity of services needed, and/or the medical risk in this patient being treated as an outpatient. - InPatient: Physician Admission Certification:: After my assessment, the patient will require hospitalization for at least two midnights. This is because of the severity of symptoms shown, intensity of services needed, and/or the medical risk in this patient being treated as an outpatient. - . Bed Request Type: Telemetry Admitting Physician: Austen España Patient Diagnosis: Increased ammonia level, Hepatic cirrhosis, Ascites, Change in mental status
[2017-02-03 22:22] LABS: BASO % 0.9 % (0.0-2.0); EOS # 0.1 K/uL (0.0-0.7); EOS % 3.4 % (0.0-4.0); HEMATOCRIT 39.9 % (35.0-51.0); LYMPH # 0.6 K/uL (1.0-4.3); LYMPH % 24.5 % (20.0-40.0); MEAN CELL VOLUME 88.8 fL (80.0-94.0); MEAN CORPUSCULAR HGB CONC 33.8 g/dL (33.0-37.0); MEAN PLATELET VOLUME 7.4 fL (7.2-11.7); MONO # 0.4 K/uL (0.0-0.8); MONO % 15.2 % (0.0-10.0); NRBC % 0.2 % (0.0-2.0); RED CELL DISTRIBUTION WIDTH 16.3 % (11.5-14.5); WHITE BLOOD COUNT 2.4 K/uL (4.8-10.8)
[2017-02-03 22:29] LABS: VENOUS BLOOD GAS BASE EXCESS 0.7 mmol/L (0.0-2.0); VENOUS BLOOD GAS PCO2 35 mmHg (40-60); VENOUS BLOOD PH 7.45 (7.32-7.43)
[2017-02-03 22:29] LABS: CHLORIDE 107 mmol/L (98-107); INR 1.7
[2017-02-03 22:30] LABS: SODIUM 136 mmol/L (132-148)
[2017-02-03 22:32] LABS: ALB/GLOB RATIO 0.7 (1.0-2.1); ALKALINE PHOSPHATASE 160 U/L (38-126); AST/SGOT 41 U/L (17-59); BILIRUBIN,TOTAL 3.9 mg/dL (0.2-1.3); BLOOD UREA NITROGEN 11 mg/dL (9-20); CARBON DIOXIDE 21 mmol/L (22-30); GFR AFRICAN-AMERICAN > 60; TOTAL PROTEIN 6.5 g/dL (6.3-8.3)
[2017-02-03 22:33] LABS: ALT/SGPT 49 U/L (21-72); CALCIUM 8.6 mg/dl (8.6-10.4); GLUCOSE,RANDOM 281 mg/dL (75-110)
[2017-02-03 23:53] LABS: RBC URINE 6 /hpf (0-3); TRANSITIONAL EPITHIAL 1 /hpf (0-3); URINE BACTERIA RARE (<OCC); URINE BILIRUBIN NEGATIVE (NEGATIVE); URINE COLOR Yellow (YELLOW); URINE GLUCOSE (UA) 3+ mg/dL (Normal); URINE KETONE NEGATIVE (NEGATIVE); URINE LEUKOCYTE ESTERASE NEG Leu/uL (Negative); URINE PROTEIN NEGATIVE (NEGATIVE); WBC URINE 2 /hpf (0-5)
[2017-02-03 23:54] LABS: URINE BLOOD 1+ (NEGATIVE)
--- NOTE | 2017-02-04 01:56 | CT ---
EXAM: CT Head Without Intravenous Contrast CLINICAL HISTORY: 61 years old, male; Signs and symptoms; Altered mental status/memory loss; Additional info: Change mental status TECHNIQUE: Axial computed tomography images of the head/brain without intravenous contrast. All CT scans at this facility use one or more dose reduction techniques, viz.: automated exposure control; ma/kV adjustment per patient size (including targeted exams where dose is matched to indication; i.e. head); or iterative reconstruction technique. Coronal and sagittal reformatted images were created and reviewed. COMPARISON: No relevant prior studies available. FINDINGS: Brain: No acute intracranial hemorrhage. Age-appropriate periventricular white matter disease. No edema. Ventricles: Age-appropriate ventriculomegaly. Bones: No acute displaced fracture. Sinuses: Unremarkable as visualized. No acute sinusitis. Mastoid air cells: Unremarkable as visualized. No mastoid effusion. IMPRESSION: No acute intracranial hemorrhage, or suspicious mass effect.
--- NOTE | 2017-02-04 02:06 | CP.PCM.HP ---
<Joanna Crain E - Last Filed: 02/04/17 07:09> History of Present Illness - History of Present Illness History of Present Illness: CC : Altered mental status change HPI: Patient is a 61 year old male with past medical history of Hepatitis C, Cirrhosis, R inguinal hernia, and IDDM was brought in by the EMS due to mental status change. As per patient's family member, patient was found to be agitated and confused. During patient's encounter, adequate HPI and ROS could not be obtained as patient was very lethargic, sleepy and drowsy. There was no family members at bedside during the encounter. PMH: Hepatitis C, Cirrhosis, R inguinal hernia, and IDDM (As per chart review) PSH: Denies (As per chart review) FHx: Denies (As per chart review) Meds: Insulin 70/30 15 units in am and 15 U in pm, hx of lasix but discontinued because pt could not afford ( As per chart review) Allergies: NKDA (As per chart review) Social History: current smoker (5 cig/day for 20 years) former PPD smoker (20 years), denies current or history of alcohol or illicit drug use (As per chart review) Medications given in the ER: Lactulose 40mg PO once Present on Admission - Present on Admission Any Indicators Present on Admission: No Review of Systems - Review of Systems Review of Systems: Unable to evaluate due to patient's condition Past Patient History - Infectious Disease Hx of Infectious Diseases: None - Tetanus Immunizations Tetanus Immunization: Unknown - Past Medical History & Family History Past Medical History?: Yes - Past Social History Smoking Status: Current Some Days Smoker - CARDIAC Hx Hypercholesterolemia: Yes Hx Hypertension: Yes - PULMONARY Hx Respiratory Disorders: No - NEUROLOGICAL Hx Neurological Disorder: No - HEENT Hx HEENT Problems: No - RENAL Hx Chronic Kidney Disease: No - ENDOCRINE/METABOLIC Hx Diabetes Mellitus Type 1: Yes - HEMATOLOGICAL/ONCOLOGICAL Hx Blood Disorders: Yes Hx Hepatitis C: Yes - INTEGUMENTARY Hx Dermatological Problems: No - MUSCULOSKELETAL/RHEUMATOLOGICAL Hx Musculoskeletal Disorders: No Hx Falls: Yes - GASTROINTESTINAL Hx Gastrointestinal Disorders: Yes Other/Comment: Liver Disease - GENITOURINARY/GYNECOLOGICAL Hx Genitourinary Disorders: No - PSYCHIATRIC Hx Substance Use: No - SURGICAL HISTORY Hx Surgeries: No - ANESTHESIA Hx Anesthesia: No Meds Home Medications: Home Medication List Medication Instructions Recorded Confirmed Type Furosemide [Lasix] 20 mg PO DAILY #20 tablet 02/06/17 Rx Lactulose [Enulose] 30 gm PO DAILY #30 02/06/17 Rx Spironolactone [Aldactone] 100 mg PO DAILY #20 tab 02/06/17 Rx Allergies/Adverse Reactions: Allergies Allergy/AdvReac Type Severity Reaction Status Date / Time No Known Allergies Allergy Verified 05/16/16 07:46 Physical Exam - Respiratory Exam Respiratory Exam: NORMAL BREATHING PATTERN Additional comments: limited exam as patient was lethargic and drowsy and unable to follow commands - Cardiovascular Exam Cardiovascular Exam: REGULAR RHYTHM, +S1, +S2 - GI/Abdominal Exam GI & Abdominal Exam: Normal Bowel Sounds, Soft Additional comments: Ascites present - Extremities Exam Extremities exam: Positive for: pedal edema (Limited physical exam due to patient's condition ) Results - Vital Signs Recent Vital Signs: Last Vital Signs Temp 99.1 F 02/03/17 22:04 Pulse 79 02/04/17 00:41 Resp 20 02/04/17 00:41 BP 135/75 02/04/17 00:41 Pulse Ox 97 02/04/17 01:35 - Labs Result Diagrams: 02/03/17 22:17 02/03/17 22:17 Labs: Laboratory Results - last 24 hr 02/03/17 02/03/17 02/03/17 22:17 22:17 22:17 WBC 2.4 L RBC 4.49 Hgb 13.5 Hct 39.9 MCV 88.8 MCH 30.0 MCHC 33.8 RDW 16.3 H Plt Count 33 L MPV 7.4 Neut % (Auto) 56.0 Lymph % (Auto) 24.5 [place] % (Auto) 15.2 H Eos % (Auto) 3.4 Baso % (Auto) 0.9 Neut # 1.3 L Lymph # 0.6 L [place] # 0.4 Eos # 0.1 Baso # 0.0 PT 19.5 H INR 1.7 APTT 41 H pO2 VBG pH VBG pCO2 VBG HCO3 VBG Total CO2 VBG O2 Sat (Calc) VBG Base Excess VBG Potassium Glucose Lactate Sodium 136 Potassium 4.0 Chloride 107 Carbon Dioxide 21 L Anion Gap 12 BUN 11 Creatinine 0.6 L Est GFR ( Amer) > 60 Est GFR (Non-Af Amer) > 60 Random Glucose 281 H Lactic Acid Calcium 8.6 Total Bilirubin 3.9 H AST 41 ALT 49 Alkaline Phosphatase 160 H Ammonia Total Protein 6.5 Albumin 2.7 L D Globulin 3.8 Albumin/Globulin Ratio 0.7 L Lipase 103 Venous Blood Potassium Urine Color Urine Clarity Urine pH Ur Specific [place] Urine Protein Urine Glucose (UA) Urine Ketones Urine Blood Urine Nitrate Urine Bilirubin Urine Urobilinogen Ur Leukocyte Esterase Urine WBC (Auto) Urine RBC (Auto) Ur Squamous Epith Cells Ur Transition Epith Cell Urine Bacteria 02/03/17 02/03/17 02/04/17 22:20 23:45 00:29 WBC RBC Hgb Hct MCV MCH MCHC RDW Plt Count MPV Neut % (Auto) Lymph % (Auto) [place] % (Auto) Eos % (Auto) Baso % (Auto) Neut # Lymph # [place] # Eos # Baso # PT INR APTT pO2 52 VBG pH 7.45 H VBG pCO2 35 L VBG HCO3 25.2 VBG Total CO2 25.4 VBG O2 Sat (Calc) 93.0 H VBG Base Excess 0.7 VBG Potassium 4.0 Glucose 296 H Lactate 3.0 H Sodium 138.0 Potassium Chloride 108.0 H Carbon Dioxide Anion Gap BUN Creatinine Est GFR ( Amer) Est GFR (Non-Af Amer) Random Glucose Lactic Acid Calcium Total Bilirubin AST ALT Alkaline Phosphatase Ammonia 175 H D Total Protein Albumin Globulin Albumin/Globulin Ratio Lipase Venous Blood Potassium 4.0 Urine Color Yellow Urine Clarity Clear Urine pH 7.0 Ur Specific [place] 1.028 Urine Protein Negative Urine Glucose (UA) 3+ H Urine Ketones Negative Urine Blood 1+ H Urine Nitrate Negative Urine Bilirubin Negative Urine Urobilinogen 4.0 Ur Leukocyte Esterase Neg Urine WBC (Auto) 2 Urine RBC (Auto) 6 H Ur Squamous Epith Cells 2 Ur Transition Epith Cell 1 Urine Bacteria Rare 02/04/17 01:32 WBC RBC Hgb Hct MCV MCH MCHC RDW Plt Count MPV Neut % (Auto) Lymph % (Auto) [place] % (Auto) Eos % (Auto) Baso % (Auto) Neut # Lymph # [place] # Eos # Baso # PT INR APTT pO2 VBG pH VBG pCO2 VBG HCO3 VBG Total CO2 VBG O2 Sat (Calc) VBG Base Excess VBG Potassium Glucose Lactate Sodium Potassium Chloride Carbon Dioxide Anion Gap BUN Creatinine Est GFR ( Amer) Est GFR (Non-Af Amer) Random Glucose Lactic Acid 1.9 Calcium Total Bilirubin AST ALT Alkaline Phosphatase Ammonia Total Protein Albumin Globulin Albumin/Globulin Ratio Lipase Venous Blood Potassium Urine Color Urine Clarity Urine pH Ur Specific [place] Urine Protein Urine Glucose (UA) Urine Ketones Urine Blood Urine Nitrate Urine Bilirubin Urine Urobilinogen Ur Leukocyte Esterase Urine WBC (Auto) Urine RBC (Auto) Ur Squamous Epith Cells Ur Transition Epith Cell Urine Bacteria Assessment & Plan (1) Altered mental status Assessment and Plan: Possibly secondary to liver cirrhosis due to hepatitis C On admission: * Ammonia: 175 * Blood gas Lactic acid: 3.0, Serum lactate repeat : 1.9 * BUN/CR: 11/0.6 Medication: * Lactulose 20mg PO Q2H ( 4 doses) Status: Acute (2) Chronic active hepatitis C Assessment and Plan: Unstable GI, Dr del angel consulted on last admission * Recommendation for endoscopy and colonoscopy Status: Acute (3) Diabetes mellitus Assessment and Plan: 01/28/17: HgbA1C: 13.0 Accuchecks Insulin sliding scale Insulin 70/30 10 U in am and 10 U pm Monitor Status: Acute (4) Thrombocytopenia Assessment and Plan: On admission: * Platelet: 33 * Continue to monitor Status: Chronic (5) Leukopenia Assessment and Plan: On admission: * WBC: 2.4 * Continue to monitor Status: Chronic (6) Prophylactic measure Assessment and Plan: Protonix 40mg PO daily DVT PPX: SCDs and antocoagulation contraindicated: low platelets Status: Acute <Austen España P - Last Filed: 02/07/17 19:34> Results - Vital Signs Recent Vital Signs: Last Vital Signs Temp 97.6 F 02/04/17 03:51 Pulse 79 02/04/17 03:51 Resp 20 02/04/17 03:51 BP 131/7 L 02/04/17 03:51 Pulse Ox 97 02/04/17 03:51 - Labs Result Diagrams: 02/06/17 07:47 02/06/17 07:47 Attending/Attestation - Attestation I have personally seen and examined this patient.: Yes I have fully participated in the care of the patient.: Yes I have reviewed all pertinent clinical information: Yes Notes (Text): 02/04/17 07:52 Patient brought in for lethargy at home, recently discharged from the hospital with hep c cirrhosis, hepatic encephalopathy, in ER lethargic [place] 170, other labs to base line, CT head negative for bleeding. Patient was able to swallow 40gm of lactulose in ER, about 1hr post he was more awake, lacutlose 20g q 2hrs for 4 doses then reevalute, including diet, insulin. Patient since in ER maintaining v/s, spo2, airway in ER hence could be observed in tele floor.
[2017-02-04] MEDS ORDERED: (Novolog) Insulin Aspart, Recombinant 100 u/ml 10 ml vial SC SCH (07:30)
[2017-02-04] MEDS ORDERED: (Novolog Mix 70/30) Insulin Aspart/Insulin Aspar 100 units/ml SC SCH ×2 (10:00)
--- NOTE | 2017-02-04 10:34 | RAD ---
PROCEDURE: CHEST RADIOGRAPH, 1 VIEW HISTORY: abd pain COMPARISON: Portable chest 01/27/2017 FINDINGS: LUNGS: No acute infiltrate is identified bilaterally. Inspiratory volume appears improved. PLEURA: No pneumothorax or pleural fluid seen. CARDIOVASCULAR: Normal. OSSEOUS STRUCTURES: No significant abnormalities. VISUALIZED UPPER ABDOMEN: Normal. OTHER FINDINGS: None. IMPRESSION: No acute cardiopulmonary disease or significant interval change. Inspiratory volume appears improved.
--- NOTE | 2017-02-04 11:11 | CP.PCM.PN ---
<Viral Solomonssyca BlakeCitlalli - Last Filed: 02/04/17 11:32> Subjective - Date & Time of Evaluation Date of Evaluation: 02/04/17 Time of Evaluation: 09:30 - Subjective Subjective: Medicine Progress Note: Patient was seen and examined at bedside in the AM. Patient is alert but is not oriented x3. Could not complete ROS because because patient is not oriented. Objective - Vital Signs/Intake and Output Vital Signs (last 24 hours): Temp Pulse Resp BP Pulse Ox 97.4 F L 73 20 130/71 98 02/04/17 08:06 02/04/17 08:06 02/04/17 08:06 02/04/17 09:05 02/04/17 08:06 - Medications Medications: Current Medications Furosemide (Lasix) 20 mg PO DAILY [facility] Last Admin: 02/04/17 09:05 Dose: 20 mg Pneumococcal Polyvalent Vaccine (Pneumovax 23 Vaccine) 0.5 ml IM .ONCE ONE Stop: 02/07/17 14:01 Spironolactone (Aldactone) 100 mg PO DAILY [facility] Last Admin: 02/04/17 09:05 Dose: 100 mg - Labs Labs: PT 19.5 SECONDS (9.7-12.2) H 02/03/17 22:17 INR 1.7 02/03/17 22:17 APTT 41 SECONDS (21-34) H 02/03/17 22:17 - Constitutional Appears: Confused - Head Exam Head Exam: ATRAUMATIC, NORMAL INSPECTION, NORMOCEPHALIC - Eye Exam Eye Exam: EOMI, Normal appearance, PERRL Pupil Exam: NORMAL ACCOMODATION, PERRL - ENT Exam ENT Exam: Mucous Membranes Moist - Respiratory Exam Respiratory Exam: Clear to Ausculation Bilateral, NORMAL BREATHING PATTERN - Cardiovascular Exam Cardiovascular Exam: REGULAR RHYTHM, RRR, +S1, +S2 - GI/Abdominal Exam GI & Abdominal Exam: Distended, Soft, Normal Bowel Sounds - Extremities Exam Extremities Exam: Normal Inspection. absent: Pedal Edema - Neurological Exam Neurological Exam: Alert, Awake. absent: Oriented x3 - Skin Skin Exam: Normal Color, Warm Assessment and Plan - Assessment and Plan (Free Text) Plan: 1.) Altered Mental Status - secondary to Hepatic Encephalopathy - On admission: * Ammonia: 175 * Blood gas Lactic acid: 3.0, Serum lactate repeat : 1.9 * BUN/CR: 11/0.6 - Lactulose 30mg PO TID - Continue home medication - Lasix - Aldactone 2.) History of Hepatitis C - GI consulted previous admission - Dr. Cho - Previous recommendation for endoscopy and colonoscopy 3.) History of Diabetes - HgbA1C (01/28/17): 13.0 - Accuchecks - Insulin sliding scale - Monitor 4.) Thrombocytopenia - On admission: - Platelet: 33 - Continue to Monitor 5.) Leukopenia: - On admission - WBC: 2.4 - Continue to Monitor 6.) Prophylaxis - Protonix 40mg PO daily - DVT PPX contraindicated due to Thrombocytopenia - Dysphagia Diet - purred diet Case discussed with Dr. Monique Solomon PGY-1 <Benoit Amaya - Last Filed: 02/04/17 16:03> Objective - Vital Signs/Intake and Output Vital Signs (last 24 hours): Temp Pulse Resp BP Pulse Ox 97.4 F L 73 20 130/71 98 02/04/17 08:06 02/04/17 08:06 02/04/17 08:06 02/04/17 09:05 02/04/17 08:06 - Medications Medications: Current Medications Furosemide (Lasix) 20 mg PO DAILY [facility] Last Admin: 02/04/17 09:05 Dose: 20 mg Insulin Human Regular (Novolin R) 0 unit SC [facility] PRN Reason: Protocol Lactulose (Enulose) 30 gm PO TID [facility] Last Admin: 02/04/17 13:07 Dose: 30 gm Pneumococcal Polyvalent Vaccine (Pneumovax 23 Vaccine) 0.5 ml IM .ONCE ONE Stop: 02/07/17 14:01 Spironolactone (Aldactone) 100 mg PO DAILY [facility] Last Admin: 02/04/17 09:05 Dose: 100 mg - Labs Labs: PT 19.5 SECONDS (9.7-12.2) H 02/03/17 22:17 INR 1.7 02/03/17 22:17 APTT 41 SECONDS (21-34) H 02/03/17 22:17 Attending/Attestation - Attestation I have personally seen and examined this patient.: Yes I have fully participated in the care of the patient.: Yes I have reviewed all pertinent clinical information, including history, physical exam and plan: Yes Notes (Text): 02/04/17 16:01 Medical Attending: Patient was seen and examined by me. Agree with the above note by the resident. Patient was recently DC from hospitalist service but was noted to be in AMS and so he came back. As mentioned previously he did not want paracentesis to be done. History of hepatitis C and there is liver cirrochis considering he does have an INR of 1.7. Ammonia is 170, lactulose will be continued. Monitor the patient's mental state. If need to will use NGT. Also he may need rifaxamine if there is no improvement of the encphelopathy. thank you Benoit Amaya
[2017-02-04] MEDS: (Novolin R) Insulin Human Regular 100 units/ml vial SC SCH ×2 (18:06→21:55)
[2017-02-05 07:53] LABS: EOS # 0.1 K/uL (0.0-0.7); EOS % 2.9 % (0.0-4.0); HEMATOCRIT 39.3 % (35.0-51.0); LYMPH # 0.5 K/uL (1.0-4.3); LYMPH % 19.3 % (20.0-40.0); MEAN CELL VOLUME 89.3 fL (80.0-94.0); MEAN CORPUSCULAR HEMOGLOBIN 30.1 pg (27.0-31.0); MEAN CORPUSCULAR HGB CONC 33.7 g/dL (33.0-37.0); MEAN PLATELET VOLUME 7.4 fL (7.2-11.7); MONO # 0.4 K/uL (0.0-0.8); MONO % 13.7 % (0.0-10.0); RED CELL DISTRIBUTION WIDTH 15.8 % (11.5-14.5); WHITE BLOOD COUNT 2.6 K/uL (4.8-10.8)
[2017-02-05] MEDS: (Novolin R) Insulin Human Regular 100 units/ml vial SC SCH ×5 (08:05→22:30)
[2017-02-05 08:32] LABS: CHLORIDE 111 mmol/L (98-107)
[2017-02-05 08:33] LABS: SODIUM 139 mmol/L (132-148)
[2017-02-05 08:35] LABS: ALB/GLOB RATIO 0.7 (1.0-2.1); BILIRUBIN,TOTAL 3.9 mg/dL (0.2-1.3); CARBON DIOXIDE 21 mmol/L (22-30); GFR AFRICAN-AMERICAN > 60
[2017-02-05 08:36] LABS: ALKALINE PHOSPHATASE 159 U/L (38-126); ALT/SGPT 49 U/L (21-72); AST/SGOT 49 U/L (17-59); BLOOD UREA NITROGEN 13 mg/dL (9-20); CALCIUM 8.3 mg/dl (8.6-10.4); GLUCOSE,RANDOM 258 mg/dL (75-110)
[2017-02-05 08:37] LABS: MAGNESIUM 1.6 mg/dL (1.6-2.3)
--- NOTE | 2017-02-05 09:35 | CP.PCM.PN ---
<JuanitoRadha BlakeCitlalli - Last Filed: 02/05/17 13:37> Subjective - Date & Time of Evaluation Date of Evaluation: 02/05/17 Time of Evaluation: 08:00 - Subjective Subjective: Medicine Progress Note: Patient was seen and examined at bedside in the AM. Patient states he is in the hospital, states that it is 2017. He says he is feeling better today and has had many bowel movements. He also states he has been eating well. Objective - Vital Signs/Intake and Output Vital Signs (last 24 hours): Temp Pulse Resp BP Pulse Ox 98.4 F 87 98 H 138/71 98 02/05/17 08:00 02/05/17 08:49 02/05/17 08:26 02/05/17 08:00 02/05/17 08:00 Intake and Output: 02/05/17 02/05/17 06:59 18:59 Intake Total 300 Output Total 450 Balance -150 - Medications Medications: Current Medications Furosemide (Lasix) 20 mg PO DAILY [facility] Last Admin: 02/04/17 09:05 Dose: 20 mg Insulin Human Regular (Novolin R) 0 unit SC [facility] PRN Reason: Protocol Last Admin: 02/04/17 21:55 Dose: Not Given Lactulose (Enulose) 30 gm PO TID [facility] Last Admin: 02/04/17 18:06 Dose: 30 gm Pneumococcal Polyvalent Vaccine (Pneumovax 23 Vaccine) 0.5 ml IM .ONCE ONE Stop: 02/07/17 14:01 Spironolactone (Aldactone) 100 mg PO DAILY [facility] Last Admin: 02/04/17 09:05 Dose: 100 mg - Labs Labs: 02/05/17 07:49 02/05/17 07:49 PT 19.5 SECONDS (9.7-12.2) H 02/03/17 22:17 INR 1.7 02/03/17 22:17 APTT 41 SECONDS (21-34) H 02/03/17 22:17 - Constitutional Appears: No Acute Distress - Head Exam Head Exam: ATRAUMATIC, NORMAL INSPECTION, NORMOCEPHALIC - Eye Exam Eye Exam: EOMI, Normal appearance, PERRL Pupil Exam: NORMAL ACCOMODATION - ENT Exam ENT Exam: Mucous Membranes Moist - Respiratory Exam Respiratory Exam: Clear to Ausculation Bilateral, NORMAL BREATHING PATTERN - Cardiovascular Exam Cardiovascular Exam: REGULAR RHYTHM, RRR, +S1, +S2 - GI/Abdominal Exam GI & Abdominal Exam: Distended, Soft, Normal Bowel Sounds. absent: Tenderness - Extremities Exam Extremities Exam: Normal Inspection. absent: Calf Tenderness, Pedal Edema, Tenderness - Neurological Exam Neurological Exam: Alert, Awake, Oriented x3 - Psychiatric Exam Psychiatric exam: Normal Affect, Normal Mood - Skin Skin Exam: Normal Color, Warm Assessment and Plan - Assessment and Plan (Free Text) Plan: 1.) Altered Mental Status - secondary to Hepatic Encephalopathy * Ammonia: 89 * BUN/CR: 13/0.5 - Lactulose 30mg PO TID - Continue home medication - Lasix - Aldactone - f/u INR/PT 2.) History of Hepatitis C - GI consulted previous admission - Dr. Cho - Previous recommendation for endoscopy and colonoscopy 3.) History of Diabetes - HgbA1C (01/28/17): 13.0 - Accuchecks - Insulin sliding scale - Monitor 4.) Thrombocytopenia - On admission: - Platelet: 36 - Continue to Monitor 5.) Leukopenia: - On admission - WBC: 2.4 - Continue to Monitor 6.) Prophylaxis - Protonix 40mg PO daily - DVT PPX contraindicated due to Thrombocytopenia - Continue Dysphagia Diet - purred diet Case discussed with Dr. Monique Solomon PGY-1 <Benoit Amaya H - Last Filed: 02/05/17 16:59> Objective - Vital Signs/Intake and Output Vital Signs (last 24 hours): Temp Pulse Resp BP Pulse Ox 98.4 F 87 98 H 138/71 98 02/05/17 08:00 02/05/17 08:49 02/05/17 08:26 02/05/17 10:28 02/05/17 08:00 Intake and Output: 02/05/17 02/05/17 06:59 18:59 Intake Total 300 Output Total 450 Balance -150 - Medications Medications: Current Medications Furosemide (Lasix) 20 mg PO DAILY [facility] Last Admin: 02/05/17 10:28 Dose: 20 mg Insulin Human Regular (Novolin R) 0 unit SC [facility]S [facility] PRN Reason: Protocol Last Admin: 02/05/17 11:20 Dose: 8 unit Lactulose (Enulose) 30 gm PO TID [facility] Last Admin: 02/05/17 13:10 Dose: 30 gm Pneumococcal Polyvalent Vaccine (Pneumovax 23 Vaccine) 0.5 ml IM .ONCE ONE Stop: 02/07/17 14:01 Spironolactone (Aldactone) 100 mg PO DAILY [facility] Last Admin: 02/05/17 10:29 Dose: 100 mg - Labs Labs: 02/05/17 07:49 02/05/17 07:49 PT 19.5 SECONDS (9.7-12.2) H 02/03/17 22:17 INR 1.7 02/03/17 22:17 APTT 41 SECONDS (21-34) H 02/03/17 22:17 Attending/Attestation - Attestation I have personally seen and examined this patient.: Yes I have fully participated in the care of the patient.: Yes I have reviewed all pertinent clinical information, including history, physical exam and plan: Yes Notes (Text): Medical Attending: Patient was seen and examined by me, agrees the above note by medical doctor nuclear medicine. The patient's mental status is much improved today, as documented before when we saw him yesterday in the ER he had elevated ammonia level. He was receiving of lactulose orally 4 times a day. He since then he's been having successful bowel movements this is probably helping decrease his ammonia level. He is also being continued on Lasix and Aldactone with regards to his history of ascites. As documented before he has a history of hepatitis C Also his family members were present. They explained to us that they're worried that he would have a hard time affording some the medications that he is on. We discussed with them the [facility] And also that if he is sent tomorrow that he would be sent with a month's supply of medication in particular the Lasix Aldactone and lactulose We also had a brief discussion with regards to his diet. We advised him to avoid high protein foods such as steak or chicken as this could readily increase his ammonia level by the way it gets metabolized thank you Benoit Amaya
[2017-02-05 16:59] VITALS: RESP 20; O2SAT 96
--- NOTE | 2017-02-05 18:00 | CARD ---
APPROVED REPORT EKG Measurement Heart [id number] <Conclusion> Normal sinus rhythm Prolonged QT Abnormal ECG
[2017-02-06 02:39] VITALS: TEMP 97.8
[2017-02-06] MEDS: (Novolin R) Insulin Human Regular 100 units/ml vial SC SCH ×2 (07:43→12:34)
[2017-02-06 08:00] LABS: BASO % 1.3 % (0.0-2.0); EOS # 0.1 K/uL (0.0-0.7); EOS % 3.2 % (0.0-4.0); HEMATOCRIT 39.3 % (35.0-51.0); LYMPH # 0.6 K/uL (1.0-4.3); LYMPH % 22.4 % (20.0-40.0); MEAN CORPUSCULAR HEMOGLOBIN 29.7 pg (27.0-31.0); MEAN CORPUSCULAR HGB CONC 33.4 g/dL (33.0-37.0); MEAN PLATELET VOLUME 7.7 fL (7.2-11.7); MONO # 0.4 K/uL (0.0-0.8); MONO % 15.6 % (0.0-10.0); NRBC % 0.1 % (0.0-2.0); RED CELL DISTRIBUTION WIDTH 15.7 % (11.5-14.5); WHITE BLOOD COUNT 2.5 K/uL (4.8-10.8)
[2017-02-06 08:02] LABS: CHLORIDE 105 mmol/L (98-107); POTASSIUM 3.9 mmol/L (3.6-5.2); SODIUM 132 mmol/L (132-148)
[2017-02-06 08:05] LABS: ALB/GLOB RATIO 0.7 (1.0-2.1); ALKALINE PHOSPHATASE 157 U/L (38-126); ALT/SGPT 49 U/L (21-72); AST/SGOT 47 U/L (17-59); BILIRUBIN,TOTAL 3.7 mg/dL (0.2-1.3); BLOOD UREA NITROGEN 10 mg/dL (9-20); CARBON DIOXIDE 24 mmol/L (22-30); GFR AFRICAN-AMERICAN > 60; GLUCOSE,RANDOM 336 mg/dL (75-110); PHOSPHOROUS 2.6 mg/dL (2.5-4.5); TOTAL PROTEIN 5.7 g/dL (6.3-8.3)
[2017-02-06 08:09] LABS: INR 1.8
[2017-02-06 08:35] VITALS: PULSE 72
[2017-02-06 09:10] VITALS: BP 120/79
[2017-02-06 09:51] LABS: CALCIUM 8.1 mg/dl (8.6-10.4); MAGNESIUM 1.5 mg/dL (1.6-2.3)
--- NOTE | 2017-02-06 11:45 | CP.PCM.DIS ---
<Viral Solomonssnatasha Angel - Last Filed: 02/06/17 18:07> Provider - Provider Date of Admission: 02/04/17 02:02 Attending physician: Benoit Amaya DO Time Spent in preparation of Discharge (in minutes): 40 Hospital Course - Lab Results Lab Results: Most Recent Lab Values WBC 2.5 K/uL (4.8-10.8) L 02/06/17 07:47 RBC 4.41 Mil/uL (4.40-5.90) 02/06/17 07:47 Hgb 13.1 g/dL (12.0-18.0) 02/06/17 07:47 Hct 39.3 % (35.0-51.0) 02/06/17 07:47 MCV 89.0 fL (80.0-94.0) 02/06/17 07:47 MCH 29.7 pg (27.0-31.0) 02/06/17 07:47 MCHC 33.4 g/dL (33.0-37.0) 02/06/17 07:47 RDW 15.7 % (11.5-14.5) H 02/06/17 07:47 Plt Count 35 K/uL (130-400) L 02/06/17 07:47 MPV 7.7 fL (7.2-11.7) 02/06/17 07:47 Neut % (Auto) 57.5 % (50.0-75.0) 02/06/17 07:47 Lymph % (Auto) 22.4 % (20.0-40.0) 02/06/17 07:47 [facility] % (Auto) 15.6 % (0.0-10.0) H 02/06/17 07:47 Eos % (Auto) 3.2 % (0.0-4.0) 02/06/17 07:47 Baso % (Auto) 1.3 % (0.0-2.0) 02/06/17 07:47 Neut # 1.4 K/uL (1.8-7.0) L 02/06/17 07:47 Lymph # 0.6 K/uL (1.0-4.3) L 02/06/17 07:47 [facility] # 0.4 K/uL (0.0-0.8) 02/06/17 07:47 Eos # 0.1 K/uL (0.0-0.7) 02/06/17 07:47 Baso # 0.0 K/uL (0.0-0.2) 02/06/17 07:47 PT 20.6 SECONDS (9.7-12.2) H 02/06/17 07:47 INR 1.8 02/06/17 07:47 APTT 42 SECONDS (21-34) H 02/06/17 07:47 pO2 52 mm/Hg (30-55) 02/03/17 22:20 VBG pH 7.45 (7.32-7.43) H 02/03/17 22:20 VBG pCO2 35 mmHg (40-60) L 02/03/17 22:20 VBG HCO3 25.2 mmol/L 02/03/17 22:20 VBG Total CO2 25.4 mmol/L (22-28) 02/03/17 22:20 VBG O2 Sat (Calc) 93.0 % (40-65) H 02/03/17 22:20 VBG Base Excess 0.7 mmol/L (0.0-2.0) 02/03/17 22:20 VBG Potassium 4.0 mmol/L (3.6-5.2) 02/03/17 22:20 Sodium 138.0 mmol/l (132-148) 02/03/17 22:20 Chloride 108.0 mmol/L (98-107) H 02/03/17 22:20 Glucose 296 mg/dl (75-110) H 02/03/17 22:20 Lactate 3.0 mmol/L (0.7-2.1) H 02/03/17 22:20 Sodium 132 mmol/L (132-148) 02/06/17 07:47 Potassium 3.9 mmol/L (3.6-5.2) 02/06/17 07:47 Chloride 105 mmol/L (98-107) 02/06/17 07:47 Carbon Dioxide 24 mmol/L (22-30) 02/06/17 07:47 Anion Gap 7 (10-20) L 02/06/17 07:47 BUN 10 mg/dL (9-20) 02/06/17 07:47 Creatinine 0.5 MG/DL (0.8-1.5) L 02/06/17 07:47 Est GFR ( Amer) > 60 02/06/17 07:47 Est GFR (Non-Af Amer) > 60 02/06/17 07:47 POC Glucose (mg/dL) 356 mg/dL (65-110) H 02/06/17 10:55 Random Glucose 336 mg/dL (75-110) H 02/06/17 07:47 Lactic Acid 1.9 mmol/L (0.7-2.1) 02/04/17 01:32 Calcium 8.1 mg/dl (8.6-10.4) L 02/06/17 07:47 Phosphorus 2.6 mg/dL (2.5-4.5) 02/06/17 07:47 Magnesium 1.5 mg/dL (1.6-2.3) L 02/06/17 07:47 Total Bilirubin 3.7 mg/dL (0.2-1.3) H 02/06/17 07:47 AST 47 U/L (17-59) 02/06/17 07:47 ALT 49 U/L (21-72) 02/06/17 07:47 Alkaline Phosphatase 157 U/L (38-126) H 02/06/17 07:47 Ammonia 89 umol/L (9-33) H D 02/05/17 07:49 Total Protein 5.7 g/dL (6.3-8.3) L 02/06/17 07:47 Albumin 2.3 g/dL (3.5-5.0) L 02/06/17 07:47 Globulin 3.4 gm/dL (2.2-3.9) 02/06/17 07:47 Albumin/Globulin Ratio 0.7 (1.0-2.1) L 02/06/17 07:47 Lipase 103 U/L (23-300) 02/03/17 22:17 Venous Blood Potassium 4.0 mmol/L (3.6-5.2) 02/03/17 22:20 Urine Color Yellow (YELLOW) 02/03/17 23:45 Urine Clarity Clear (Clear) 02/03/17 23:45 Urine pH 7.0 (5.0-8.0) 02/03/17 23:45 Ur Specific Hamlin 1.028 (1.003-1.030) 02/03/17 23:45 Urine Protein Negative mg/dL (NEGATIVE) 02/03/17 23:45 Urine Glucose (UA) 3+ mg/dL (Normal) H 02/03/17 23:45 Urine Ketones Negative mg/dL (NEGATIVE) 02/03/17 23:45 Urine Blood 1+ (NEGATIVE) H 02/03/17 23:45 Urine Nitrate Negative (NEGATIVE) 02/03/17 23:45 Urine Bilirubin Negative (NEGATIVE) 02/03/17 23:45 Urine Urobilinogen 4.0 mg/dL (0.2-1.0) 02/03/17 23:45 Ur Leukocyte Esterase Neg Justin/uL (Negative) 02/03/17 23:45 Urine WBC (Auto) 2 /hpf (0-5) 02/03/17 23:45 Urine RBC (Auto) 6 /hpf (0-3) H 02/03/17 23:45 Ur Squamous Epith Cells 2 /hpf (0-5) 02/03/17 23:45 Ur Transition Epith Cell 1 /hpf (0-3) 02/03/17 23:45 Urine Bacteria Rare (<OCC) 02/03/17 23:45 - Hospital Course Hospital Course: CC : Altered mental status change HPI: Patient is a 61 year old male with past medical history of Hepatitis C, Cirrhosis, R inguinal hernia, and IDDM was brought in by the EMS due to mental status change. As per patient's family member, patient was found to be agitated and confused. During patient's encounter, adequate HPI and ROS could not be obtained as patient was very lethargic, sleepy and drowsy. There was no family members at bedside during the encounter. PMH: Hepatitis C, Cirrhosis, R inguinal hernia, and IDDM (As per chart review) PSH: Denies (As per chart review) FHx: Denies (As per chart review) Meds: Insulin 70/30 15 units in am and 15 U in pm, hx of lasix but discontinued because pt could not afford ( As per chart review) Allergies: NKDA (As per chart review) Social History: current smoker (5 cig/day for 20 years) former PPD smoker (20 years), denies current or history of alcohol or illicit drug use (As per chart review) Medications given in the ER: Lactulose 40mg PO once Hospital Course: Patient is a 61yo male with a past medical history of Hepatitis C, cirrhosis, R inguinal hernia, and IDDM who was admitted due to altered mental status secondary to hepatic encephalopathy. The patient received a CXR on 02/03/17 which showed no acute cardiopulmonary disease or significant interval change, as well as improved inspiratory volume. He also received an ECG that day which showed normal sinus rhythm and prolonged QT. On 02/04/17 he underwent a head CT without contrast which reported no acute intracranial hemorrhage or mass effect. The patient was given Lactulose 30mg and patient had many bowel movements. On admission patient's ammonia level was 179. On 02/05 after many overnight bowel movements the ammonia level was 89 and patient was oriented x3 (to person, time and place). The patient was seen and evaluated at bedside in the morning and is oriented to person, time and place. He denies fever, chills, headache, chest pain, shortness of breath, nausea, vomiting, abdominal pain, dysuria. Patient is tolerating diet. Patient is stable for discharge. Patient stable for discharge per Dr. Amaya. Patient to resume diabetic medications at home. Patient to continue new medications: Lactulose 30mg daily by mouth Lasix 20mg daily by mouth Aldactone 100mg daily by mouth Patient to follow up with the [facility] at [facility] ( Located on the [facility] Floor) Please make an appointment in within 1-2 weeks: # [phone] Please return to the Emergency Room if symptoms return or worsen. This is a brief summary of events. For a complete course, refer to the medical record. Discharge Exam - Head Exam Head Exam: ATRAUMATIC, NORMAL INSPECTION, NORMOCEPHALIC - Eye Exam Eye Exam: EOMI, Normal appearance, PERRL Pupil Exam: NORMAL ACCOMODATION - ENT Exam ENT Exam: Mucous Membranes Moist - Respiratory Exam Respiratory Exam: Clear to PA & Lateral, NORMAL BREATHING PATTERN - Cardiovascular Exam Cardiovascular Exam: REGULAR RHYTHM, RRR, +S1, +S2 - GI/Abdominal Exam GI & Abdominal Exam: Distended, Normal Bowel Sounds, Soft. absent: Tenderness - Extremities Exam Extremities exam: normal inspection - Neurological Exam Neurological exam: Alert, Oriented x3 - Psychiatric Exam Psychiatric exam: Normal Affect, Normal Mood - Skin Skin Exam: Normal Color, Warm Discharge Plan - Discharge Medications Prescriptions: Furosemide [Lasix] 20 mg PO DAILY #20 tablet Lactulose [Enulose] 30 gm PO DAILY #30 Spironolactone [Aldactone] 100 mg PO DAILY #20 tab - Follow Up Plan Condition: GUARDED Disposition: HOME/ ROUTINE Instructions: Diabetes Mellitus Type 2 in Adults (DC) Additional Instructions: TAKE YOUR MEDICATIONS INSTRUCTED BY YOUR DOCTOR. TO FOLLOW UP WITH THE [facility] AT [facility] PLEASE CALL TO MAKE AN APPOINTMENT IN WITHIN 1-2 WEEKS, # [phone]. Referrals: Toya Burger MD [Staff Provider] - <Benoit Amaya - Last Filed: 02/07/17 08:05> Provider - Provider Date of Admission: 02/04/17 02:02 Attending physician: Benoit Amaya DO [place] Hospital Course - Lab Results Lab Results: Most Recent Lab Values WBC 2.5 K/uL (4.8-10.8) L 02/06/17 07:47 RBC 4.41 Mil/uL (4.40-5.90) 02/06/17 07:47 Hgb 13.1 g/dL (12.0-18.0) 02/06/17 07:47 Hct 39.3 % (35.0-51.0) 02/06/17 07:47 MCV 89.0 fL (80.0-94.0) 02/06/17 07:47 MCH 29.7 pg (27.0-31.0) 02/06/17 07:47 MCHC 33.4 g/dL (33.0-37.0) 02/06/17 07:47 RDW 15.7 % (11.5-14.5) H 02/06/17 07:47 Plt Count 35 K/uL (130-400) L 02/06/17 07:47 MPV 7.7 fL (7.2-11.7) 02/06/17 07:47 Neut % (Auto) 57.5 % (50.0-75.0) 02/06/17 07:47 Lymph % (Auto) 22.4 % (20.0-40.0) 02/06/17 07:47 [facility] % (Auto) 15.6 % (0.0-10.0) H 02/06/17 07:47 Eos % (Auto) 3.2 % (0.0-4.0) 02/06/17 07:47 Baso % (Auto) 1.3 % (0.0-2.0) 02/06/17 07:47 Neut # 1.4 K/uL (1.8-7.0) L 02/06/17 07:47 Lymph # 0.6 K/uL (1.0-4.3) L 02/06/17 07:47 [facility] # 0.4 K/uL (0.0-0.8) 02/06/17 07:47 Eos # 0.1 K/uL (0.0-0.7) 02/06/17 07:47 Baso # 0.0 K/uL (0.0-0.2) 02/06/17 07:47 PT 20.6 SECONDS (9.7-12.2) H 02/06/17 07:47 INR 1.8 02/06/17 07:47 APTT 42 SECONDS (21-34) H 02/06/17 07:47 pO2 52 mm/Hg (30-55) 02/03/17 22:20 VBG pH 7.45 (7.32-7.43) H 02/03/17 22:20 VBG pCO2 35 mmHg (40-60) L 02/03/17 22:20 VBG HCO3 25.2 mmol/L 02/03/17 22:20 VBG Total CO2 25.4 mmol/L (22-28) 02/03/17 22:20 VBG O2 Sat (Calc) 93.0 % (40-65) H 02/03/17 22:20 VBG Base Excess 0.7 mmol/L (0.0-2.0) 02/03/17 22:20 VBG Potassium 4.0 mmol/L (3.6-5.2) 02/03/17 22:20 Sodium 138.0 mmol/l (132-148) 02/03/17 22:20 Chloride 108.0 mmol/L (98-107) H 02/03/17 22:20 Glucose 296 mg/dl (75-110) H 02/03/17 22:20 Lactate 3.0 mmol/L (0.7-2.1) H 02/03/17 22:20 Sodium 132 mmol/L (132-148) 02/06/17 07:47 Potassium 3.9 mmol/L (3.6-5.2) 02/06/17 07:47 Chloride 105 mmol/L (98-107) 02/06/17 07:47 Carbon Dioxide 24 mmol/L (22-30) 02/06/17 07:47 Anion Gap 7 (10-20) L 02/06/17 07:47 BUN 10 mg/dL (9-20) 02/06/17 07:47 Creatinine 0.5 MG/DL (0.8-1.5) L 02/06/17 07:47 Est GFR ( Amer) > 60 02/06/17 07:47 Est GFR (Non-Af Amer) > 60 02/06/17 07:47 POC Glucose (mg/dL) 356 mg/dL (65-110) H 02/06/17 10:55 Random Glucose 336 mg/dL (75-110) H 02/06/17 07:47 Lactic Acid 1.9 mmol/L (0.7-2.1) 02/04/17 01:32 Calcium 8.1 mg/dl (8.6-10.4) L 02/06/17 07:47 Phosphorus 2.6 mg/dL (2.5-4.5) 02/06/17 07:47 Magnesium 1.5 mg/dL (1.6-2.3) L 02/06/17 07:47 Total Bilirubin 3.7 mg/dL (0.2-1.3) H 02/06/17 07:47 AST 47 U/L (17-59) 02/06/17 07:47 ALT 49 U/L (21-72) 02/06/17 07:47 Alkaline Phosphatase 157 U/L (38-126) H 02/06/17 07:47 Ammonia 89 umol/L (9-33) H D 02/05/17 07:49 Total Protein 5.7 g/dL (6.3-8.3) L 02/06/17 07:47 Albumin 2.3 g/dL (3.5-5.0) L 02/06/17 07:47 Globulin 3.4 gm/dL (2.2-3.9) 02/06/17 07:47 Albumin/Globulin Ratio 0.7 (1.0-2.1) L 02/06/17 07:47 Lipase 103 U/L (23-300) 02/03/17 22:17 Venous Blood Potassium 4.0 mmol/L (3.6-5.2) 02/03/17 22:20 Urine Color Yellow (YELLOW) 02/03/17 23:45 Urine Clarity Clear (Clear) 02/03/17 23:45 Urine pH 7.0 (5.0-8.0) 02/03/17 23:45 Ur Specific [place] 1.028 (1.003-1.030) 02/03/17 23:45 Urine Protein Negative mg/dL (NEGATIVE) 02/03/17 23:45 Urine Glucose (UA) 3+ mg/dL (Normal) H 02/03/17 23:45 Urine Ketones Negative mg/dL (NEGATIVE) 02/03/17 23:45 Urine Blood 1+ (NEGATIVE) H 02/03/17 23:45 Urine Nitrate Negative (NEGATIVE) 02/03/17 23:45 Urine Bilirubin Negative (NEGATIVE) 02/03/17 23:45 Urine Urobilinogen 4.0 mg/dL (0.2-1.0) 02/03/17 23:45 Ur Leukocyte Esterase Neg Justin/uL (Negative) 02/03/17 23:45 Urine WBC (Auto) 2 /hpf (0-5) 02/03/17 23:45 Urine RBC (Auto) 6 /hpf (0-3) H 02/03/17 23:45 Ur Squamous Epith Cells 2 /hpf (0-5) 02/03/17 23:45 Ur Transition Epith Cell 1 /hpf (0-3) 02/03/17 23:45 Urine Bacteria Rare (<OCC) 02/03/17 23:45 Attending/Attestation - Attestation I have personally seen and examined this patient.: Yes I have fully participated in the care of the patient.: Yes I have reviewed all pertinent clinical information, including history, physical exam and plan: Yes Notes (Text): 02/07/17 07:59 Medical attending: Patient was seen and examined by me, agree with the above note by emergency medical tech. Today on physical exam we had the patient stand up and walk with us. On exam as he was walking around, he denied having any chest pain, he denied having shortness of breath, we walked him up to the front office supervisor of the 6 floor. We looked at his air sampling and monitoring as he was walking around and he did okay on the telemetry. He was in normal sinus rhythm in the mid 90s His mental status is very good now, he is alert and oriented 3 he was answering all questions. He understands that he's got follow-up at [facility] medical clinic In particular we emphasized to him that he's currently try to avoid high protein foods such as meats and chicken he says that he doesn't think he'll be able to comply with this I explained to him that these foods increase the level of ammonia that is buildup metabolites. Considering the situation of his liver I explained to him that it's very important that he takes his medication in particular lactulose Thank you very much, Benoit Amaya
[2017-02-07] MEDS ORDERED: Pneumococcal 23-Valent Vaccine IM ONE (14:00)
== END 2017-02-06 15:38 | disposition home or self-care (01) | DRG 202 ==
LOC: C.ER 21:45 → C.9E 02-04 02:02 → C.6T 02-04 02:57
PROVIDERS: ADMIT Hospitalist; ATTEND Hospitalist
DX: K74.60 Unspecified cirrhosis of liver (principal); D69.6 Thrombocytopenia, unspecified; I10 Essential (primary) hypertension; F17.200 Nicotine dependence, unspecified, uncomplicated; D72.819 Decreased white blood cell count, unspecified; E11.9 Type 2 diabetes mellitus without complications; E78.00 Pure hypercholesterolemia, unspecified; Z79.4 Long term (current) use of insulin

== ENCOUNTER 2017-02-25 07:04 | Inpatient (IN) | payer OTHER ==
[2017-02-25 07:05] VITALS: BMI 23.6
--- NOTE | 2017-02-25 08:03 | C.PDOC ---
History Of Present Illness 61 y/o male, past medical history of Hepatitis C, Cirrhosis, R inguinal hernia, and IDDM, is brought to ED by EMS for altered mental status. As per , patient is noncompliant with his medications, and is not sure of his last dose of meds. Pt was recently admitted for AMS. Patient is a poor historian, limited history due to clinical condition. No family at bedside. VIA TRANS [id number] PT POOR HISTORIAN, LIMITED DUE TO CLIN COND. NO FAMILY @ BEDSIDE past medical history of Hepatitis C, Cirrhosis, R inguinal hernia, and IDDM PER EMS, PT FROM HOME FOR AMS PER . NONCOMPLIANT W MEDS, UNK LAST DOSE OF MEDS. RECENT ADMISSION FOR AMS, NONCOMPLIANCE. ROS UTO EXAM MOD TOX NARD HEENT ANICTERIC +GAG MMM LUNGS CTA B/L NO W/R/R CV RRR ABD MILD DIST NONTEND NO EDEMA WARM DRY NO JAUNDICE NEURO AWAKES AND FOCAL RESPONSE TO PAIN STIM; NO GROSS FOCAL DEF. UNINTELLIGIBLE WORDS PER WELDER GAS TUNGSTEN ARC REMAINDER NEG MDM PT UNCOOPERATIVE FOR NGT PLACEMENT, ORAL MEDS. Time Seen by Provider: 02/25/17 07:31 Chief Complaint (Nursing): Medical Clearance History Per: Patient History/Exam Limitations: None Onset/Duration Of Symptoms: Gradual Current Symptoms Are (Timing): Still Present Usual Baseline: Unknown Past Medical History Reviewed: Historical Data, Nursing Documentation, Vital Signs Vital Signs: Last Vital Signs Temp 98.5 F 02/25/17 08:24 Pulse 78 02/25/17 07:11 Resp 18 02/25/17 07:11 BP 124/68 02/25/17 07:11 Pulse Ox 97 02/25/17 09:36 - Medical History PMH: Diabetes, Hepatitis, HTN, Hypercholesterolemia Denies: Chronic Kidney Disease Family History: States: Hypertension - Social History Hx Tobacco Use: Yes Hx Alcohol Use: No Hx Substance Use: No - Immunization History Hx Tetanus Toxoid Vaccination: Yes Hx Influenza Vaccination: Yes Hx Pneumococcal Vaccination: No Review Of Systems Review Of Systems: ROS cannot be obtained secondary to pt's inabilty to answer questions. Physical Exam - Physical Exam Appears: Other (MOD TOX, NARD) Skin: Warm, Dry, No Pale (no jaundice), No Rash Head: Atraumatic, Normacephalic Eye(s): bilateral: Normal Inspection Ear(s): Bilateral: Normal Oral Mucosa: Moist, Other (+GAG) Tongue: Normal Appearing Lips: Normal Appearing Throat: Normal Neck: Normal ROM, Supple Chest: Symmetrical Cardiovascular: Rhythm Regular, No Murmur Respiratory: Normal Breath Sounds, No Rales, No Rhonchi, No Wheezing Gastrointestinal/Abdominal: Soft, No Tenderness, Distention (mild), No Guarding , No Rebound Back: No CVA Tenderness Extremity: Normal ROM, No Pedal Edema, No Deformity Neurological/Psych: Other (awake, and focal response to painful stimuli. No gross focal deficits. Unintelligible words as per head shipper) ED Course And Treatment - Laboratory Results Result Diagrams: 02/25/17 08:07 02/25/17 08:07 ECG: Interpreted By Me ECG Rhythm: Sinus Rhythm Interpretation Of ECG: Prolonged QT. Rate From EC (bpm) O2 Sat by Pulse Oximetry: 97 Pulse Ox Interpretation: Normal - Radiology CXR: Interpreted by Me CXR Interpretation: Yes: No Acute Disease (ncp) Progress - Re-Evaluation Re-evaluation Note: 02/25/17 09:00 D/W DR MARTINEZ C/F ICU WILL EVAL IN ER 02/25/17 09:35 PT DRINKING LACTULOSE. CLEARED FOR FLOOR ADMISSION. ADVISES CONTINUE LACTULOSE 20 MG Q2 02/25/17 09:38 DR DOWLING WILL ADMIT - Data Reviewed Data Reviewed: Lab, Diagnostic imaging, EKG, Old records - Critical Care Citical Care: Excluding Proc Time Critical Care Time: 90 minutes - Continuity of Care Discussed patient case with:: Covering for PMD Discussed pt. case with learning consultant/specialty: Pulmonary/Crit. Care Medical Decision Making Medical Decision Making: PT UNCOOPERATIVE FOR NGT PLACEMENT, ORAL MEDS. Disposition Counseled Patient/Family Regarding: Studies Performed, Diagnosis - Disposition Disposition: HOSPITALIZED Disposition Time: 09:39 Condition: STABLE Forms: [email or web address] (Belgian) - POA Present On Arrival: Poor Glycemic Control - Clinical Impression Clinical Impression: Hepatic encephalopathy syndrome, Increased ammonia level - Scribe Statement The provider has reviewed the documentation as recorded by the Scribe Mehnaz Rizo All medical record entries made by the Scribe were at my direction and personally dictated by me. I have reviewed the chart and agree that the record accurately reflects my personal performance of the history, physical exam, medical decision making, and the department course for this patient. I have also personally directed, reviewed, and agree with the discharge instructions and disposition. Decision To Admit - Pt Status Changed To: Hospital Disposition Of: Inpatient - Admit Certification Admit to Inpatient:: After my assessment, the patient will require hospitalization for at least two midnights. This is because of the severity of symptoms shown, intensity of services needed, and/or the medical risk in this patient being treated as an outpatient. - InPatient: Physician Admission Certification:: SEE NOTE - . Bed Request Type: Regular Admitting Physician: Tamara Dowling Patient Diagnosis: Hepatic encephalopathy syndrome, Increased ammonia level
[2017-02-25 08:13] LABS: BASO % 0.8 % (0.0-2.0); EOS # 0.1 K/uL (0.0-0.7); EOS % 1.9 % (0.0-4.0); HEMATOCRIT 45.4 % (35.0-51.0); LYMPH # 0.4 K/uL (1.0-4.3); LYMPH % 14.9 % (20.0-40.0); MEAN CELL VOLUME 89.6 fL (80.0-94.0); MEAN CORPUSCULAR HEMOGLOBIN 30.3 pg (27.0-31.0); MEAN CORPUSCULAR HGB CONC 33.8 g/dL (33.0-37.0); MEAN PLATELET VOLUME 7.5 fL (7.2-11.7); MONO # 0.3 K/uL (0.0-0.8); MONO % 9.7 % (0.0-10.0); NRBC % 0.4 % (0.0-2.0); RED CELL DISTRIBUTION WIDTH 16.2 % (11.5-14.5); WHITE BLOOD COUNT 2.8 K/uL (4.8-10.8)
[2017-02-25 08:20] LABS: VENOUS BLOOD GAS BASE EXCESS 1.2 mmol/L (0.0-2.0); VENOUS BLOOD GAS PCO2 41 mmHg (40-60); VENOUS BLOOD PH 7.41 (7.32-7.43)
[2017-02-25 08:22] LABS: INR 1.5
[2017-02-25 08:27] LABS: RBC URINE 2 /hpf (0-3); URINE BACTERIA OCC (<OCC); URINE BILIRUBIN NEGATIVE (NEGATIVE); URINE BLOOD 1+ (NEGATIVE); URINE COLOR Amber (YELLOW); URINE GLUCOSE (UA) 3+ mg/dL (Normal); URINE KETONE TRACE mg/dL (NEGATIVE); URINE LEUKOCYTE ESTERASE 2+ Leu/uL (Negative); URINE PROTEIN NEGATIVE (NEGATIVE); URINE UROBILINOGEN NORMAL mg/dL (0.2-1.0); WBC URINE 74 /hpf (0-5)
[2017-02-25 08:32] LABS: CHLORIDE 101 mmol/L (98-107); SODIUM 136 mmol/L (132-148)
[2017-02-25 08:33] LABS: POTASSIUM 4.2 mmol/L (3.6-5.2)
[2017-02-25 08:35] LABS: ALB/GLOB RATIO 0.8 (1.0-2.1); ALKALINE PHOSPHATASE 159 U/L (38-126); AST/SGOT 41 U/L (17-59); BILIRUBIN,TOTAL 3.7 mg/dL (0.2-1.3); BLOOD UREA NITROGEN 13 mg/dL (9-20); CARBON DIOXIDE 21 mmol/L (22-30); GFR AFRICAN-AMERICAN > 60; GLUCOSE,RANDOM 259 mg/dL (75-110); TOTAL PROTEIN 6.6 g/dL (6.3-8.3)
[2017-02-25 08:36] LABS: ALT/SGPT 49 U/L (21-72); CALCIUM 8.1 mg/dl (8.6-10.4)
--- NOTE | 2017-02-25 08:49 | RAD ---
PROCEDURE: CHEST RADIOGRAPH, 1 VIEW HISTORY: AMS COMPARISON: 02/03/2017. FINDINGS: LUNGS: The lungs are well inflated and clear. PLEURA: No pneumothorax or pleural fluid seen. CARDIOVASCULAR: Normal. OSSEOUS STRUCTURES: Within normal limits for the patient's age. VISUALIZED UPPER ABDOMEN: Normal. OTHER FINDINGS: None. IMPRESSION: No active pulmonary disease.
--- NOTE | 2017-02-25 09:24 | CT ---
PROCEDURE: CT HEAD WITHOUT CONTRAST. HISTORY: AMS COMPARISON: Comparison is made to 02/04/2017 TECHNIQUE: Axial computed tomography images were obtained through the head/brain without intravenous contrast. Radiation dose: Total exam DLP = 795.75 mGy-cm. This CT exam was performed using one or more of the following dose reduction techniques: Automated exposure control, adjustment of the mA and/or kV according to patient size, and/or use of iterative reconstruction technique. FINDINGS: HEMORRHAGE: No intracranial hemorrhage. BRAIN: No mass effect or edema. No atrophy or chronic microvascular ischemic changes. VENTRICLES: Unremarkable. No hydrocephalus. CALVARIUM: Unremarkable. PARANASAL SINUSES: Unremarkable as visualized. No significant inflammatory changes. MASTOID AIR CELLS: Unremarkable as visualized. No inflammatory changes. OTHER FINDINGS: None. IMPRESSION: No evidence of acute intracranial hemorrhage territorial infarct mass effect or midline shift.
--- NOTE | 2017-02-25 11:49 | CP.PCM.HP ---
<Devante Dewey - Last Filed: 02/25/17 13:25> History of Present Illness - History of Present Illness History of Present Illness: PGY1 Medicine Note for Dr. Dowling The patient is a 61 year old male with a past medical history of Hepatitis C, Cirrhosis, R inguinal hernia, and IDDM. He was brought in by the EMS due to mental status change. As per ED note, the patient's states that the patient is a poor historian. During patient's encounter, HPI and ROS was minimal due to being lethargic and drowsy. There was no family members at bedside during the encounter. The patient stated that his reasoning for coming to the hospital today was because of a headache and abdominal pain. He stated that he is no longer experiencing these pains at the time of the encounter. Denies f/c, n/v, d/c, sob, cp or headache. The following information was obtained by chart review PMH: Hepatitis C, Cirrhosis, R inguinal hernia, and IDDM PSH: Denies FHx: Denies Meds: Patient reports medication compliance but occurring to previous documentation, he does not take his medication. Allergies: NKDA Social History: current smoker (5 cig/day for 20 years) former PPD smoker (20 years), denies current or history of alcohol or illicit drug use Medications given in the ER: Lactulose 40mg PO once Present on Admission - Present on Admission Any Indicators Present on Admission: No Review of Systems - Review of Systems Systems not reviewed;Unavailable: Other (Lethargic) - Constitutional Constitutional: Fatigue, Lethargy. absent: Chills, Fever - EENT Eyes: absent: Change in Vision - Cardiovascular Cardiovascular: absent: Chest Pain, Palpitations - Respiratory Respiratory: absent: Cough, Dyspnea - Gastrointestinal Gastrointestinal: Abdominal Pain (diffuse) - Musculoskeletal Musculoskeletal: absent: Numbness, Tingling - Neurological Neurological: Headaches Past Patient History - Infectious Disease Hx of Infectious Diseases: None - Tetanus Immunizations Tetanus Immunization: Unknown - Past Medical History & Family History Past Medical History?: Yes - Past Social History Smoking Status: Current Some Days Smoker - CARDIAC Hx Hypercholesterolemia: Yes Hx Hypertension: Yes - PULMONARY Hx Respiratory Disorders: No - NEUROLOGICAL Hx Neurological Disorder: No - HEENT Hx HEENT Problems: No - RENAL Hx Chronic Kidney Disease: No - ENDOCRINE/METABOLIC Hx Diabetes Mellitus Type 1: Yes - HEMATOLOGICAL/ONCOLOGICAL Hx Blood Disorders: Yes Hx Hepatitis C: Yes - INTEGUMENTARY Hx Dermatological Problems: No - MUSCULOSKELETAL/RHEUMATOLOGICAL Hx Musculoskeletal Disorders: No Hx Falls: Yes - GASTROINTESTINAL Hx Gastrointestinal Disorders: Yes Other/Comment: Liver Disease - GENITOURINARY/GYNECOLOGICAL Hx Genitourinary Disorders: No - PSYCHIATRIC Hx Substance Use: No - SURGICAL HISTORY Hx Surgeries: No - ANESTHESIA Hx Anesthesia: No Meds Allergies/Adverse Reactions: Allergies Allergy/AdvReac Type Severity Reaction Status Date / Time No Known Allergies Allergy Verified 02/25/17 07:08 Physical Exam - Constitutional Appears: No Acute Distress, Chronically Ill - Head Exam Head Exam: ATRAUMATIC, NORMOCEPHALIC - Eye Exam Eye Exam: EOMI, PERRL, Scleral icterus - ENT Exam ENT Exam: Mucous Membranes Moist - Neck Exam Neck exam: Negative for: Tenderness - Respiratory Exam Respiratory Exam: Clear to Auscultation Bilateral, NORMAL BREATHING PATTERN. absent: Accessory Muscle Use, Rales, Rhonchi, Wheezes, Respiratory Distress - Cardiovascular Exam Cardiovascular Exam: REGULAR RHYTHM, +S1, +S2 - GI/Abdominal Exam GI & Abdominal Exam: Soft. absent: Distended, Guarding, Rebound, Rigid, Tenderness - Extremities Exam Extremities exam: Negative for: calf tenderness, pedal edema - Neurological Exam Neurological exam: Oriented x3 Additional comments: Patient is very slow to answer questions. His responses trail off to nothing as he falls back asleep. - Psychiatric Exam Additional comments: Very lethargic, unable to assess mood - Skin Skin Exam: Dry, Warm Additional comments: Patient appears yellow. Results - Vital Signs Recent Vital Signs: Last Vital Signs Temp 98.5 F 02/25/17 08:24 Pulse 70 02/25/17 09:54 Resp 14 02/25/17 09:54 BP 114/61 02/25/17 09:54 Pulse Ox 97 02/25/17 09:54 - Labs Result Diagrams: 02/25/17 08:07 02/25/17 08:07 Labs: Laboratory Results - last 24 hr 02/25/17 02/25/17 02/25/17 07:15 08:07 08:07 WBC 2.8 L RBC 5.07 Hgb 15.3 D Hct 45.4 MCV 89.6 MCH 30.3 MCHC 33.8 RDW 16.2 H Plt Count 38 L MPV 7.5 Neut % (Auto) 72.7 Lymph % (Auto) 14.9 L Luce % (Auto) 9.7 Eos % (Auto) 1.9 Baso % (Auto) 0.8 Neut # 2.1 Lymph # 0.4 L Luce # 0.3 Eos # 0.1 Baso # 0.0 PT 17.2 H INR 1.5 APTT 39 H pO2 VBG pH VBG pCO2 VBG HCO3 VBG Total CO2 VBG O2 Sat (Calc) VBG Base Excess VBG Potassium Glucose Lactate Sodium Potassium Chloride Carbon Dioxide Anion Gap BUN Creatinine Est GFR ( Amer) Est GFR (Non-Af Amer) POC Glucose (mg/dL) 267 H Random Glucose Calcium Total Bilirubin AST ALT Alkaline Phosphatase Ammonia Total Protein Albumin Globulin Albumin/Globulin Ratio Lipase Venous Blood Potassium Urine Color Urine Clarity Urine pH Ur Specific [place] Urine Protein Urine Glucose (UA) Urine Ketones Urine Blood Urine Nitrate Urine Bilirubin Urine Urobilinogen Ur Leukocyte Esterase Urine WBC (Auto) Urine RBC (Auto) Ur Squamous Epith Cells Urine Bacteria 02/25/17 02/25/17 02/25/17 08:07 08:07 08:17 WBC RBC Hgb Hct MCV MCH MCHC RDW Plt Count MPV Neut % (Auto) Lymph % (Auto) Luce % (Auto) Eos % (Auto) Baso % (Auto) Neut # Lymph # Luce # Eos # Baso # PT INR APTT pO2 30 VBG pH 7.41 VBG pCO2 41 VBG HCO3 24.8 VBG Total CO2 27.3 VBG O2 Sat (Calc) 59.8 VBG Base Excess 1.2 VBG Potassium 4.2 Glucose 293 H Lactate 2.9 H Sodium 136 137.0 Potassium 4.2 Chloride 101 105.0 Carbon Dioxide 21 L Anion Gap 18 BUN 13 Creatinine 0.5 L Est GFR ( Amer) > 60 Est GFR (Non-Af Amer) > 60 POC Glucose (mg/dL) Random Glucose 259 H Calcium 8.1 L Total Bilirubin 3.7 H AST 41 ALT 49 Alkaline Phosphatase 159 H Ammonia 61 H D Total Protein 6.6 Albumin 2.9 L D Globulin 3.6 Albumin/Globulin Ratio 0.8 L Lipase 78 Venous Blood Potassium 4.2 Urine Color Urine Clarity Urine pH Ur Specific [place] Urine Protein Urine Glucose (UA) Urine Ketones Urine Blood Urine Nitrate Urine Bilirubin Urine Urobilinogen Ur Leukocyte Esterase Urine WBC (Auto) Urine RBC (Auto) Ur Squamous Epith Cells Urine Bacteria 02/25/17 08:19 WBC RBC Hgb Hct MCV MCH MCHC RDW Plt Count MPV Neut % (Auto) Lymph % (Auto) Luce % (Auto) Eos % (Auto) Baso % (Auto) Neut # Lymph # Luce # Eos # Baso # PT INR APTT pO2 VBG pH VBG pCO2 VBG HCO3 VBG Total CO2 VBG O2 Sat (Calc) VBG Base Excess VBG Potassium Glucose Lactate Sodium Potassium Chloride Carbon Dioxide Anion Gap BUN Creatinine Est GFR ( Amer) Est GFR (Non-Af Amer) POC Glucose (mg/dL) Random Glucose Calcium Total Bilirubin AST ALT Alkaline Phosphatase Ammonia Total Protein Albumin Globulin Albumin/Globulin Ratio Lipase Venous Blood Potassium Urine Color [place] Urine Clarity Hazy Urine pH 5.0 Ur Specific [place] 1.015 Urine Protein Negative Urine Glucose (UA) 3+ H Urine Ketones Trace Urine Blood 1+ H Urine Nitrate Negative Urine Bilirubin Negative Urine Urobilinogen Normal Ur Leukocyte Esterase 2+ H Urine WBC (Auto) 74 H Urine RBC (Auto) 2 Ur Squamous Epith Cells < 1 Urine Bacteria Occ H Assessment & Plan - Assessment and Plan (Free Text) Assessment: Altered mental status Assessment and Plan: Possibly secondary to liver cirrhosis due to hepatitis C On admission: * Ammonia: 61 (previous admission on 02/04/17 = 175) * VBG Lactate: 2.9, pH 7.41 * BUN/CR: 13/.5 * INR: 1.5; PTT: 39 Medication: * Lactulose 20mg PO Q2H for 2 doses, Q4H after 2 doses until patient has diarrhea. * Lasix 20mg IVP daily * Aldactone 100mg PO daily Abdominal Pain Assessment and Plan: f/u CT abd and pelvis w/IV&PO contrast f/u amylase/lipase Chronic active hepatitis C Assessment and Plan: f/u US of liver GI, Dr del angel consulted on prior admission * Recommended endoscopy and colonoscopy Diabetes mellitus Assessment and Plan: 01/28/17: HgbA1C: 13.0 Accuchecks Insulin sliding scale - moderate Heart Healthy/Carbo Consistent Diet Monitor Thrombocytopenia Assessment and Plan: On admission: * Platelet: 38 * Continue to monitor Leukopenia Assessment and Plan: On admission: * WBC: 2.8 (previous admission on 02/04/17 = 2.4) * Continue to monitor Prophylactic measure Assessment and Plan: Protonix 40mg PO daily DVT PPX: SCDs anticoagulation contraindicated: Thrombocytopenia 38 PT/OT once patient is orientated. Case discussed with Dr. Nitesh Dewey PGY1 <Tamara Dowling V - Last Filed: 02/25/17 23:48> Results - Vital Signs Recent Vital Signs: Last Vital Signs Temp 98 F 02/25/17 11:51 Pulse 77 02/25/17 11:51 Resp 20 02/25/17 11:51 BP 110/70 02/25/17 13:17 Pulse Ox 99 02/25/17 11:51 - Labs Result Diagrams: 02/25/17 08:07 02/25/17 08:07 Labs: Laboratory Results - last 24 hr 02/25/17 02/25/17 02/25/17 07:15 08:07 08:07 WBC 2.8 L RBC 5.07 Hgb 15.3 D Hct 45.4 MCV 89.6 MCH 30.3 MCHC 33.8 RDW 16.2 H Plt Count 38 L MPV 7.5 Neut % (Auto) 72.7 Lymph % (Auto) 14.9 L Luce % (Auto) 9.7 Eos % (Auto) 1.9 Baso % (Auto) 0.8 Neut # 2.1 Lymph # 0.4 L Luce # 0.3 Eos # 0.1 Baso # 0.0 PT 17.2 H INR 1.5 APTT 39 H pO2 VBG pH VBG pCO2 VBG HCO3 VBG Total CO2 VBG O2 Sat (Calc) VBG Base Excess VBG Potassium Glucose Lactate Sodium Potassium Chloride Carbon Dioxide Anion Gap BUN Creatinine Est GFR ( Amer) Est GFR (Non-Af Amer) POC Glucose (mg/dL) 267 H Random Glucose Calcium Total Bilirubin AST ALT Alkaline Phosphatase Ammonia Total Protein Albumin Globulin Albumin/Globulin Ratio Lipase Venous Blood Potassium Urine Color Urine Clarity Urine pH Ur Specific [place] Urine Protein Urine Glucose (UA) Urine Ketones Urine Blood Urine Nitrate Urine Bilirubin Urine Urobilinogen Ur Leukocyte Esterase Urine WBC (Auto) Urine RBC (Auto) Ur Squamous Epith Cells Urine Bacteria 02/25/17 02/25/17 02/25/17 08:07 08:07 08:17 WBC RBC Hgb Hct MCV MCH MCHC RDW Plt Count MPV Neut % (Auto) Lymph % (Auto) Luce % (Auto) Eos % (Auto) Baso % (Auto) Neut # Lymph # Luce # Eos # Baso # PT INR APTT pO2 30 VBG pH 7.41 VBG pCO2 41 VBG HCO3 24.8 VBG Total CO2 27.3 VBG O2 Sat (Calc) 59.8 VBG Base Excess 1.2 VBG Potassium 4.2 Glucose 293 H Lactate 2.9 H Sodium 136 137.0 Potassium 4.2 Chloride 101 105.0 Carbon Dioxide 21 L Anion Gap 18 BUN 13 Creatinine 0.5 L Est GFR ( Amer) > 60 Est GFR (Non-Af Amer) > 60 POC Glucose (mg/dL) Random Glucose 259 H Calcium 8.1 L Total Bilirubin 3.7 H AST 41 ALT 49 Alkaline Phosphatase 159 H Ammonia 61 H D Total Protein 6.6 Albumin 2.9 L D Globulin 3.6 Albumin/Globulin Ratio 0.8 L Lipase 78 Venous Blood Potassium 4.2 Urine Color Urine Clarity Urine pH Ur Specific [place] Urine Protein Urine Glucose (UA) Urine Ketones Urine Blood Urine Nitrate Urine Bilirubin Urine Urobilinogen Ur Leukocyte Esterase Urine WBC (Auto) Urine RBC (Auto) Ur Squamous Epith Cells Urine Bacteria 02/25/17 02/25/17 02/25/17 08:19 12:46 16:12 WBC RBC Hgb Hct MCV MCH MCHC RDW Plt Count MPV Neut % (Auto) Lymph % (Auto) Luce % (Auto) Eos % (Auto) Baso % (Auto) Neut # Lymph # Luce # Eos # Baso # PT INR APTT pO2 VBG pH VBG pCO2 VBG HCO3 VBG Total CO2 VBG O2 Sat (Calc) VBG Base Excess VBG Potassium Glucose Lactate Sodium Potassium Chloride Carbon Dioxide Anion Gap BUN Creatinine Est GFR ( Amer) Est GFR (Non-Af Amer) POC Glucose (mg/dL) 377 H 360 H Random Glucose Calcium Total Bilirubin AST ALT Alkaline Phosphatase Ammonia Total Protein Albumin Globulin Albumin/Globulin Ratio Lipase Venous Blood Potassium Urine Color [place] Urine Clarity Hazy Urine pH 5.0 Ur Specific [place] 1.015 Urine Protein Negative Urine Glucose (UA) 3+ H Urine Ketones Trace Urine Blood 1+ H Urine Nitrate Negative Urine Bilirubin Negative Urine Urobilinogen Normal Ur Leukocyte Esterase 2+ H Urine WBC (Auto) 74 H Urine RBC (Auto) 2 Ur Squamous Epith Cells < 1 Urine Bacteria Occ H 02/25/17 21:41 WBC RBC Hgb Hct MCV MCH MCHC RDW Plt Count MPV Neut % (Auto) Lymph % (Auto) Luce % (Auto) Eos % (Auto) Baso % (Auto) Neut # Lymph # Luce # Eos # Baso # PT INR APTT pO2 VBG pH VBG pCO2 VBG HCO3 VBG Total CO2 VBG O2 Sat (Calc) VBG Base Excess VBG Potassium Glucose Lactate Sodium Potassium Chloride Carbon Dioxide Anion Gap BUN Creatinine Est GFR ( Amer) Est GFR (Non-Af Amer) POC Glucose (mg/dL) 341 H Random Glucose Calcium Total Bilirubin AST ALT Alkaline Phosphatase Ammonia Total Protein Albumin Globulin Albumin/Globulin Ratio Lipase Venous Blood Potassium Urine Color Urine Clarity Urine pH Ur Specific [place] Urine Protein Urine Glucose (UA) Urine Ketones Urine Blood Urine Nitrate Urine Bilirubin Urine Urobilinogen Ur Leukocyte Esterase Urine WBC (Auto) Urine RBC (Auto) Ur Squamous Epith Cells Urine Bacteria Attending/Attestation - Attestation I have personally seen and examined this patient.: Yes I have fully participated in the care of the patient.: Yes I have reviewed all pertinent clinical information: Yes Notes (Text): Patient seen, examined and case discussed with day-time resident. Patient with known hx of hepatitis C, cirrhosis, and hx of noncompliance on medications per review of EMR. Patient is not forth coming with information at bedside. Patient is drowsy but will respond with yes and no questions. Able to protect airway. + gag reflex. Will clutch the bed covers because he does not want to speak to us at bedside. No family at bedside. neurologically: negative Babinski b/l passive range of motion intact upper and lower extremities + gag reflex no nuchal rigidity nor meningismus signs no appreciate nystagmus No axteris, no caput medusae, no appreciate fluid wave Discussed admitting orders with day-time resident. 1) Hepatic Encephalopathy Assessment and Plan: * Possibly secondary to liver cirrhosis due to hepatitis C On admission: * Ammonia: 61 (previous admission on 02/04/17 = 175) * VBG Lactate: 2.9, pH 7.41 * BUN/CR: 13/.5 * INR: 1.5; PTT: 39 Medication: * Lactulose 20mg PO Q2H for 2 doses, Q4H after 2 doses until patient has diarrhea. * Lasix 20mg IVP daily * Aldactone 100mg PO daily * Blood and urine collected in ED r/o infection * CT Head: negative for acute findings 2) Abdominal Pain Assessment and Plan: * f/u CT abd and pelvis w/IV&PO contrast-->hx of cirrhosis; seen if there is appreciable ascites; patient does not appear distended * f/u amylase/lipase 3) Chronic active hepatitis C Assessment and Plan: * f/u Ab US of liver; prior Abdominal US in 2016 per review of EMR * On prior admission. he was recommended for endoscopy/colonoscopy 4) Diabetes mellitus Assessment and Plan: * 01/28/17: HgbA1C: 13.0 * Accuchecks * Insulin sliding scale - moderate * Heart Healthy/Carbo Consistent Diet * Monitor 5) Pancytopenia Assessment and Plan: * On admission:platelets 38 * Patient is known cirrhotic * chemical anticoagulation secondary to thrombocytopenia 6) Prophylactic measure Assessment and Plan: * Protonix 40mg PO daily * DVT PPX: SCDs * anticoagulation contraindicated Thrombocytopenia 38 * PT/OT once patient is orientated.
[2017-02-25] MEDS ORDERED: Iohexol 240 (50 ml) PO ONE (14:45)
[2017-02-25] MEDS ORDERED: Iohexol 300 100 ML IJ ONE (16:14)
--- NOTE | 2017-02-25 16:18 | US ---
HISTORY: hx of hep c, cirrhosis COMPARISON: CT of the abdomen and pelvis with contrast performed 01/27/17 TECHNIQUE: Sonographic evaluation of the abdomen. FINDINGS: Examination limited by patient condition. LIVER: Measures 12.8 cm in sagittal dimension. Echogenic liver may be seen in setting of hepatic parenchymal disease or fatty infiltration. Nodular hepatic contour. No focal hepatic mass identified. The main portal vein was not adequately assessed. No intrahepatic bile duct dilatation. GALLBLADDER: No gallstones. Wall thickening/edema measuring approximately 4 mm. Negative sonographic Quintero's sign as assessed by the chief controller tower. COMMON BILE DUCT: Measures 3 mm. PANCREAS: Not well visualized. RIGHT KIDNEY: Measures 12.3 x 6.4 x 5.0cm. No hydronephrosis or obstructing calculus identified. Echogenic renal parenchyma. LEFT KIDNEY: Measures 13.7 x 7.3 x 4.5cm. No hydronephrosis or obstructing calculus identified. Echogenic renal parenchyma. SPLEEN: Measures approximately 18.1 cm. AORTA: Limited views appear unremarkable. IVC: Limited views appear unremarkable. OTHER FINDINGS: None. IMPRESSION: Echogenic liver may be seen in setting of hepatic parenchymal disease or fatty infiltration. Nodular hepatic contour consistent with cirrhosis. The main portal vein was not adequately visualized on this examination and patency/directional flow cannot be assessed. Mild gallbladder wall thickening/ edema. No evidence of gallstones. Negative sonographic Quintero sign as assessed by the chief controller tower. Splenomegaly. Echogenic renal parenchyma may be seen in the setting of medical renal disease.
[2017-02-25] MEDS: [UNRECOGNIZED DRUG - OTHER] SC SCH ×2 (16:30→22:00)
[2017-02-26 07:03] LABS: EOS # 0.1 K/uL (0.0-0.7); EOS % 3.6 % (0.0-4.0); HEMATOCRIT 37.7 % (35.0-51.0); LYMPH # 0.7 K/uL (1.0-4.3); LYMPH % 29.3 % (20.0-40.0); MEAN CELL VOLUME 88.6 fL (80.0-94.0); MEAN CORPUSCULAR HEMOGLOBIN 30.2 pg (27.0-31.0); MEAN CORPUSCULAR HGB CONC 34.1 g/dL (33.0-37.0); MONO # 0.3 K/uL (0.0-0.8); MONO % 12.8 % (0.0-10.0); NRBC % 0.3 % (0.0-2.0); RED CELL DISTRIBUTION WIDTH 16.5 % (11.5-14.5); WHITE BLOOD COUNT 2.3 K/uL (4.8-10.8)
[2017-02-26 07:32] LABS: CHLORIDE 102 mmol/L (98-107); POTASSIUM 3.6 mmol/L (3.6-5.2); SODIUM 137 mmol/L (132-148)
[2017-02-26 07:34] LABS: ALB/GLOB RATIO 0.7 (1.0-2.1); ALKALINE PHOSPHATASE 131 U/L (38-126); AMYLASE 50 U/L (30-110); AST/SGOT 39 U/L (17-59); BILIRUBIN,TOTAL 3.3 mg/dL (0.2-1.3); BLOOD UREA NITROGEN 15 mg/dL (9-20); CARBON DIOXIDE 22 mmol/L (22-30); GFR AFRICAN-AMERICAN > 60; TOTAL PROTEIN 5.7 g/dL (6.3-8.3)
[2017-02-26 07:35] LABS: ALT/SGPT 48 U/L (21-72); CALCIUM 8.2 mg/dl (8.6-10.4); GLUCOSE,RANDOM 237 mg/dL (75-110); MAGNESIUM 1.5 mg/dL (1.6-2.3)
[2017-02-26] MEDS: [UNRECOGNIZED DRUG - OTHER] SC SCH ×4 (08:26→21:40)
[2017-02-26] MEDS: Pantoprazole 40 mg EC Tab PO SCH (09:26)
--- NOTE | 2017-02-26 10:07 | CP.PCM.PN ---
Addendum entered and electronically signed by Samira Chavira DO 02/26/17 15:14 : CT abdomen and pelvis 02/25/17: Advanced cirrhosis with findings consistent with portal hypertension and portal systemic shunts. Moderate splenomegaly.Changes consistent with chronic pancreatitis. Nonspecific diffuse small bowel wall thickening, correlate clinically for enteritis. Irregular thick-walled urinary bladder with Nagel catheter present. Air within the urinary bladder may be secondary to instrumentation. Additional incidental findings as above. Addendum entered and electronically signed by Samira Chavira DO 02/26/17 14:22 : UA = + LE, UC = gram positive Started Rocephin 1 gram Daily 02/26/17 Original Note: <Samira Chavira - Last Filed: 02/26/17 12:40> Subjective - Date & Time of Evaluation Date of Evaluation: 02/26/17 Time of Evaluation: 09:00 - Subjective Subjective: Medicine Note for Dr. Dowling Patient was seen and examined at bedside. Patient is AAO x3. Reports he feels better. He had 2-4 bowel movements overnight. Patient refused paracentesis. Denied fever, chills, headache, abdominal pain, n/v/d/c, or urinary symptoms. Objective - Vital Signs/Intake and Output Vital Signs (last 24 hours): Temp Pulse Resp BP Pulse Ox 97.7 F 71 20 111/66 95 02/26/17 07:00 02/26/17 07:00 02/26/17 07:00 02/26/17 09:26 02/26/17 07:00 Intake and Output: 02/26/17 02/26/17 06:59 18:59 Intake Total 340 Output Total 900 Balance -560 - Medications Medications: Current Medications Furosemide (Lasix) 20 mg IVP DAILY [facility] Last Admin: 02/26/17 09:26 Dose: 20 mg Insulin Human Regular (Novolin R) 0 unit SC ACHS [facility] PRN Reason: Protocol Last Admin: 02/26/17 08:26 Dose: 4 unit Lactulose (Enulose) 20 gm PO Q4H [facility] Last Admin: 02/26/17 09:25 Dose: 20 gm Pantoprazole Sodium (Protonix Ec Tab) 40 mg PO DAILY [facility] Last Admin: 02/26/17 09:26 Dose: 40 mg Spironolactone (Aldactone) 100 mg PO DAILY [facility] Last Admin: 02/26/17 09:25 Dose: 100 mg - Labs Labs: 02/26/17 06:56 02/26/17 06:56 PT 17.2 SECONDS (9.7-12.2) H 02/25/17 08:07 INR 1.5 02/25/17 08:07 APTT 39 SECONDS (21-34) H 02/25/17 08:07 - Constitutional Appears: No Acute Distress - Head Exam Head Exam: NORMAL INSPECTION, NORMOCEPHALIC - Eye Exam Eye Exam: EOMI, Normal appearance, PERRL Pupil Exam: NORMAL ACCOMODATION - ENT Exam ENT Exam: Mucous Membranes Moist - Respiratory Exam Respiratory Exam: NORMAL BREATHING PATTERN. absent: Decreased Breath Sounds - Cardiovascular Exam Cardiovascular Exam: REGULAR RHYTHM, RRR, +S1, +S2 - GI/Abdominal Exam GI & Abdominal Exam: Distended (+ fluid wave shift ), Soft, Normal Bowel Sounds. absent: Tenderness - Extremities Exam Extremities Exam: Normal Inspection. absent: Pedal Edema, Tenderness - Neurological Exam Neurological Exam: Alert, Awake, Oriented x3 - Psychiatric Exam Psychiatric exam: Normal Affect, Normal Mood - Skin Skin Exam: Dry, Intact, Normal Color, Warm Assessment and Plan - Assessment and Plan (Free Text) Plan: 1) Hepatic Encephalopathy Assessment and Plan: * Possibly secondary to liver cirrhosis due to hepatitis C On admission: * Ammonia: 61 (previous admission on 02/04/17 = 175) * VBG Lactate: 2.9, pH 7.41 * BUN/CR: 13/.5 * INR: 1.5; PTT: 39 Medication: * Lactulose 20mg PO Q4H after 2 * Lasix 20mg IVP daily * Aldactone 100mg PO daily * Blood and urine collected in ED r/o infection * CT Head: negative for acute findings 2) Abdominal Pain Assessment and Plan: * f/u CT abd and pelvis w/IV&PO contrast * Amylase/lipase - wnl * Ascities 2/2 cirrhosis 2/2 hepatitis C- Patient REFUSED PARACENTESIS 3) Chronic active hepatitis C Assessment and Plan: * Ab US of liver; cirrhosis * On prior admission. he was recommended for endoscopy/colonoscopy 4) Diabetes mellitus Assessment and Plan: * 01/28/17: HgbA1C: 13.0 * Accuchecks * Insulin sliding scale - moderate * Started on novolog 70/30 - 25 units SC BIDAC * Heart Healthy/Carbo Consistent Diet * Monitor 5) Pancytopenia Assessment and Plan: * On admission:platelets 38 * Patient is known cirrhotic * chemical anticoagulation secondary to thrombocytopenia 6) Prophylactic measure Assessment and Plan: * Protonix 40mg PO daily * DVT PPX: SCDs, anticoagulation contraindicated Thrombocytopenia 38 * PT/OT once patient is orientated DW Fan Sánchez DO, PGY-1 <Tamara Dowling V - Last Filed: 02/28/17 00:13> Objective - Vital Signs/Intake and Output Vital Signs (last 24 hours): Temp Pulse Resp BP Pulse Ox 97.4 F L 75 20 108/66 96 02/27/17 15:02 02/27/17 15:02 02/27/17 15:02 02/27/17 15:02 02/27/17 15:02 Intake and Output: 02/27/17 02/28/17 18:59 06:59 Intake Total 1190 450 Output Total 1450 Balance -260 450 - Medications Medications: Current Medications Furosemide (Lasix) 20 mg IVP DAILY [facility] Last Admin: 02/27/17 10:05 Dose: 20 mg Ceftriaxone Sodium 1 gm/ (Sodium Chloride) 100 mls @ 100 mls/hr IVPB DAILY [facility] Last Admin: 02/27/17 10:08 Dose: 100 mls/hr Insulin Aspart (Novolog Mix 70/30 (70/30 Units/Ml)) 35 units SC Q12 [facility] Last Admin: 02/27/17 21:50 Dose: 35 units Insulin Human Regular (Novolin R) 0 unit SC ACHS [facility] PRN Reason: Protocol Last Admin: 02/27/17 21:51 Dose: 3 unit Lactulose (Enulose) 20 gm PO Q4H [facility] Last Admin: 02/27/17 21:45 Dose: Not Given Pantoprazole Sodium (Protonix Ec Tab) 40 mg PO DAILY [facility] Last Admin: 02/27/17 10:07 Dose: 40 mg Spironolactone (Aldactone) 100 mg PO DAILY [facility] Last Admin: 02/27/17 10:05 Dose: 100 mg - Labs Labs: 02/27/17 07:02 02/27/17 07:02 PT 18.7 SECONDS (9.7-12.2) H 02/27/17 07:02 INR 1.6 02/27/17 07:02 APTT 39 SECONDS (21-34) H 02/25/17 08:07 Attending/Attestation - Attestation I have personally seen and examined this patient.: Yes I have fully participated in the care of the patient.: Yes I have reviewed all pertinent clinical information, including history, physical exam and plan: Yes Notes (Text): This is late computer entry for 02/26/17. patient seen, examined, and case discussed with day-time resident. Patient seen at bedside this morning, a changed person. Patient is mentating well. Alert, awake, oriented X3. Patient seen able to sit upright and eating his lunch. Will continue Lactulose Q 4hours Patient has positive UA and urine culture-->started on Rocephin 1 gram IV q daily. Reviewed and discussed CT scan with the resident and patient. Patient refuses paracentesis for his ascites. Patient does not clinically have enteritis. Denies abdominal pain, nausea, and vomitting. No pain upon palpation. 1) Hepatic Encephalopathy Assessment and Plan: * Possibly secondary to liver cirrhosis due to hepatitis C On admission: * Ammonia: 61 (previous admission on 02/04/17 = 175) * VBG Lactate: 2.9, pH 7.41 * BUN/CR: 13/.5 * INR: 1.5; PTT: 39 Medication: * Lactulose 20mg PO Q2H for 2 doses, Q4H after 2 doses until patient has diarrhea. * Lasix 20mg IVP daily * Aldactone 100mg PO daily * f/u UA and urine culture * Pending blood culture * CT Head: negative for acute findings 2) Abdominal Pain Assessment and Plan: * f/u CT abd and pelvis w/IV&PO contrast-->hx of cirrhosis; seen if there is appreciable ascites; patient is distended when he sits upright * CT abdomen and pelvis 02/25/17: Advanced cirrhosis with findings consistent with portal hypertension and portal systemic shunts. Moderate splenomegaly.Changes consistent with chronic pancreatitis. Nonspecific diffuse small bowel wall thickening, correlate clinically for enteritis. Irregular thick -walled urinary bladder with Nagel catheter present. Air within the urinary bladder may be secondary to instrumentation. Additional incidental findings as above. * Lipase: 69 3) Chronic active hepatitis C Assessment and Plan: * f/u Ab US of liver; prior Abdominal US in 2016 per review of EMR * Ab US (02/25/17): echogenic liver may be seen in setting of hepatic parenchymal disease or fatty infiltration. nodular hepatic contour consistent with cirrhosis. Main portal vein cannot be adequately visualizded, Mild gallbladder wall thickening/edema. No evidence of gallstones. Negative sonographic Quintero sign. Splenomegaly. Echogenic and renal parenchyma. * On prior admission. he was recommended for endoscopy/colonoscopy-->will need to follow-up with GI 4) Diabetes mellitus Assessment and Plan: * 01/28/17: HgbA1C: 13.0 * Accuchecks QAC and HS * Insulin sliding scale - moderate * Restart patient's home regimen: Novolog 70/30 25 units subqBID * Heart Healthy/Carbo Consistent Diet * Monitor 5) Pancytopenia Assessment and Plan: * On admission:platelets 38 * Patient is known cirrhotic * chemical anticoagulation secondary to thrombocytopenia 6) Abnormal UA Assessment and Plan: * Patient has positive UA and urine culture-->started on Rocephin 1 gram IV q daily. 7) Prophylactic measure Assessment and Plan: * Protonix 40mg PO daily * DVT PPX: SCDs * anticoagulation contraindicated Thrombocytopenia 38 * PT/OT once patient is orientated.
--- NOTE | 2017-02-26 11:13 | CT ---
PROCEDURE: CT Abdomen and Pelvis with oral and IV contrast. HISTORY: abdominal pain w/ hx of cirrhosis COMPARISON: CT abdomen and pelvis with contrast performed 01/27/17 TECHNIQUE: Contiguous axial images of the abdomen and pelvis. Oral and IV contrast was administered. Coronal and Sagittal reformats generated and reviewed. Contrast dose: 100 cc Omnipaque 350 Radiation dose: Total exam DLP = 667.77 mGy-cm. This CT exam was performed using one or more of the following dose reduction techniques: Automated exposure control, adjustment of the mA and/or kV according to patient size, and/or use of iterative reconstruction technique. FINDINGS: Emanation limited by paucity of intra-abdominal and intrapelvic fat. LOWER THORAX: No visible consolidation, pleural effusion, or pneumothorax. Small hiatal hernia/distal esophageal wall thickening. LIVER: Nodular hepatic contour. Intrahepatic biliary ductal dilatation. 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 GALLBLADDER AND BILE DUCTS: Distended gallbladder. No calcified gallstones evident. PANCREAS: Dilated ectatic pancreatic duct. Numerous pancreatic calcifications ; correlate clinically for history of acute chronic pancreatitis. SPLEEN: Splenomegaly. ADRENALS: Unremarkable. KIDNEYS AND URETERS: The kidneys enhance symmetrically. No hydronephrosis or obstructing renal calculus. BLADDER: Irregular thick-walled urinary bladder with Nagel catheter present. Air within the urinary bladder may be secondary to instrumentation. REPRODUCTIVE: Unremarkable. APPENDIX: The appendix appears within normal limits of caliber. BOWEL: Inadequate ingestion of oral contrast limits evaluation for bowel pathology. The stomach is nondistended. Moderate diffuse small bowel wall thickening, nonspecific. Mild constipation. No evidence of bowel obstruction. PERITONEUM: Small pelvic free fluid. No definite free air. LYMPH NODES: No bulky lymphadenopathy identified. VASCULATURE: Large collateral vessels re-identified within the upper abdomen consistent with portal systemic shunt to portal hypertension and liver cirrhosis. Atherosclerotic calcifications of the aorta and branches. No aortic aneurysm. BONES: Degenerative changes of the spine. OTHER FINDINGS: Midline ventral hernia with small fluid. Postsurgical changes consistent with prior ventral hernia repair. Fluid containing right inguinal hernia. Small left fat containing inguinal hernia. IMPRESSION: Advanced cirrhosis with findings consistent with portal hypertension and portal systemic shunts. Moderate splenomegaly. Changes consistent with chronic pancreatitis. Nonspecific diffuse small bowel wall thickening, correlate clinically for enteritis. Irregular thick-walled urinary bladder with Nagel catheter present. Air within the urinary bladder may be secondary to instrumentation. Additional incidental findings as above.
[2017-02-26] MEDS: Magnesium Sulfate 1 gm in D5W 1 GM/100 ML BAG IVPB SCH ×2 (11:44→12:28)
[2017-02-26 11:57] LABS: RBC URINE 28 /hpf (0-3); URINE BACTERIA RARE (<OCC); URINE BILIRUBIN NEGATIVE (NEGATIVE); URINE BLOOD 2+ (NEGATIVE); URINE COLOR Yellow (YELLOW); URINE GLUCOSE (UA) 3+ mg/dL (Normal); URINE KETONE NEGATIVE (NEGATIVE); URINE LEUKOCYTE ESTERASE 1+ Leu/uL (Negative); URINE PROTEIN 1+ mg/dL (NEGATIVE); WBC URINE 28 /hpf (0-5)
[2017-02-26] MEDS: (Novolog Mix 70/30) Insulin Aspart/Insulin Aspar 100 units/ml SC SCH (16:30)
[2017-02-27 07:19] LABS: BASO % 0.6 % (0.0-2.0); EOS # 0.1 K/uL (0.0-0.7); EOS % 3.7 % (0.0-4.0); HEMATOCRIT 38.7 % (35.0-51.0); LYMPH # 0.5 K/uL (1.0-4.3); LYMPH % 21.7 % (20.0-40.0); MEAN CELL VOLUME 88.9 fL (80.0-94.0); MEAN CORPUSCULAR HEMOGLOBIN 30.2 pg (27.0-31.0); MEAN PLATELET VOLUME 8.1 fL (7.2-11.7); MONO # 0.3 K/uL (0.0-0.8); MONO % 14.1 % (0.0-10.0); NRBC % 0.2 % (0.0-2.0); RED CELL DISTRIBUTION WIDTH 16.4 % (11.5-14.5); WHITE BLOOD COUNT 2.4 K/uL (4.8-10.8)
[2017-02-27 07:27] LABS: INR 1.6
[2017-02-27 07:39] LABS: CHLORIDE 100 mmol/L (98-107)
[2017-02-27 07:40] LABS: POTASSIUM 3.7 mmol/L (3.6-5.2); SODIUM 134 mmol/L (132-148)
[2017-02-27 07:42] LABS: GFR AFRICAN-AMERICAN > 60
[2017-02-27 07:43] LABS: ALB/GLOB RATIO 0.7 (1.0-2.1); ALKALINE PHOSPHATASE 134 U/L (38-126); ALT/SGPT 44 U/L (21-72); AST/SGOT 41 U/L (17-59); BILIRUBIN,TOTAL 2.9 mg/dL (0.2-1.3); BLOOD UREA NITROGEN 12 mg/dL (9-20); CALCIUM 7.9 mg/dl (8.6-10.4); CARBON DIOXIDE 23 mmol/L (22-30); GLUCOSE,RANDOM 324 mg/dL (75-110); TOTAL PROTEIN 5.7 g/dL (6.3-8.3)
[2017-02-27] MEDS: [UNRECOGNIZED DRUG - OTHER] SC SCH ×4 (07:48→21:51)
[2017-02-27] MEDS: (Novolog Mix 70/30) Insulin Aspart/Insulin Aspar 100 units/ml SC SCH ×3 (07:50→21:50)
--- NOTE | 2017-02-27 08:00 | CP.PCM.PN ---
<Christel Chaviraa - Last Filed: 02/27/17 16:04> Subjective - Date & Time of Evaluation Date of Evaluation: 02/27/17 Time of Evaluation: 09:00 - Subjective Subjective: Medicine Note for Dr. Dowling Patient was seen and examined at bedside. Patient is AAO x3. Reports he feels better. He had 2-4 bowel movements overnight. Patient refused paracentesis. Denied fever, chills, headache, abdominal pain, n/v/d/c, or urinary symptoms. Objective - Vital Signs/Intake and Output Vital Signs (last 24 hours): Temp Pulse Resp BP Pulse Ox 98 F 66 19 105/49 L 96 02/27/17 07:19 02/27/17 07:19 02/27/17 07:19 02/27/17 07:19 02/27/17 07:19 Intake and Output: 02/27/17 02/27/17 06:59 18:59 Intake Total 400 400 Output Total 900 450 Balance -500 -50 - Medications Medications: Current Medications Furosemide (Lasix) 20 mg IVP DAILY [facility] Last Admin: 02/26/17 09:26 Dose: 20 mg Ceftriaxone Sodium 1 gm/ (Sodium Chloride) 100 mls @ 100 mls/hr IVPB DAILY [facility] Last Admin: 02/26/17 16:00 Dose: 100 mls/hr Insulin Aspart (Novolog Mix 70/30 (70/30 Units/Ml)) 25 units SC BIDAC [facility] Last Admin: 02/27/17 07:50 Dose: 25 units Insulin Human Regular (Novolin R) 0 unit SC ACHS [facility] PRN Reason: Protocol Last Admin: 02/27/17 07:48 Dose: 6 unit Lactulose (Enulose) 20 gm PO Q4H [facility] Last Admin: 02/27/17 06:19 Dose: 20 gm Pantoprazole Sodium (Protonix Ec Tab) 40 mg PO DAILY [facility] Last Admin: 02/26/17 09:26 Dose: 40 mg Spironolactone (Aldactone) 100 mg PO DAILY [facility] Last Admin: 02/26/17 09:25 Dose: 100 mg - Labs Labs: 02/27/17 07:02 02/27/17 07:02 PT 18.7 SECONDS (9.7-12.2) H 02/27/17 07:02 INR 1.6 02/27/17 07:02 APTT 39 SECONDS (21-34) H 02/25/17 08:07 - Additional Findings Additional findings: - Constitutional Appears: No Acute Distress - Head Exam Head Exam: NORMAL INSPECTION, NORMOCEPHALIC - Eye Exam Eye Exam: EOMI, Normal appearance, PERRL Pupil Exam: NORMAL ACCOMODATION - ENT Exam ENT Exam: Mucous Membranes Moist - Respiratory Exam Respiratory Exam: NORMAL BREATHING PATTERN. absent: Decreased Breath Sounds - Cardiovascular Exam Cardiovascular Exam: REGULAR RHYTHM, RRR, +S1, +S2 - GI/Abdominal Exam GI & Abdominal Exam: Distended (+ fluid wave shift ), Soft, Normal Bowel Sounds. absent: Tenderness - Extremities Exam Extremities Exam: Normal Inspection. absent: Pedal Edema, Tenderness - Neurological Exam Neurological Exam: Alert, Awake, Oriented x3 - Psychiatric Exam Psychiatric exam: Normal Affect, Normal Mood - Skin Skin Exam: Dry, Intact, Normal Color, Warm Assessment and Plan - Assessment and Plan (Free Text) Plan: Hepatic Encephalopathy Assessment and Plan: * Possibly secondary to liver cirrhosis due to hepatitis C On admission: * Ammonia: 61 (previous admission on 02/04/17 = 175) * VBG Lactate: 2.9, pH 7.41 * BUN/CR: 13/.5 * INR: 1.5; PTT: 39 * CT Head: negative for acute findings * Blood culture - pending - anticipate discharge tomorrow if negative * UA = + LE, UC = gram positive Medication: * Lactulose 20mg PO Q4H after 2 * Lasix 20mg IVP daily * Aldactone 100mg PO daily Abdominal Pain Assessment and Plan: * CT abd and pelvis w/IV&PO contrast 02/25/17: Advanced cirrhosis with findings consistent with portal hypertension and portal systemic shunts. Moderate splenomegaly.Changes consistent with chronic pancreatitis. Nonspecific diffuse small bowel wall thickening, correlate clinically for enteritis. Irregular thick -walled urinary bladder with Nagel catheter present. Air within the urinary bladder may be secondary to instrumentation. Additional incidental findings as above. * Amylase/lipase - wnl * Ascities 2/2 cirrhosis 2/2 hepatitis C- Patient REFUSED PARACENTESIS UTI Assessment and Plan: * UA = + LE, UC = gram positive * Started Rocephin 1 gram Daily 02/26/17- will be DC with keflex Chronic active hepatitis C Assessment and Plan: * Ab US of liver; cirrhosis * On prior admission. he was recommended for endoscopy/colonoscopy Diabetes mellitus Assessment and Plan: * 01/28/17: HgbA1C: 13.0 * Accuchecks * Insulin sliding scale - moderate * Started on novolog 70/30 - 25 units SC BIDAC * Heart Healthy/Carbo Consistent Diet * Monitor Pancytopenia Assessment and Plan: * On admission:platelets 38 * Patient is known cirrhotic * chemical anticoagulation secondary to thrombocytopenia Prophylactic measure Assessment and Plan: * Protonix 40mg PO daily * DVT PPX: SCDs, anticoagulation contraindicated Thrombocytopenia 38 * PT/OT once patient is orientated DW Fan Sánchez DO, PGY-1 <Tamara Dowling V - Last Filed: 02/28/17 00:20> Objective - Vital Signs/Intake and Output Vital Signs (last 24 hours): Temp Pulse Resp BP Pulse Ox 97.4 F L 75 20 108/66 96 02/27/17 15:02 02/27/17 15:02 02/27/17 15:02 02/27/17 15:02 02/27/17 15:02 Intake and Output: 02/27/17 02/28/17 18:59 06:59 Intake Total 1190 450 Output Total 1450 Balance -260 450 - Medications Medications: Current Medications Furosemide (Lasix) 20 mg IVP DAILY [facility] Last Admin: 02/27/17 10:05 Dose: 20 mg Ceftriaxone Sodium 1 gm/ (Sodium Chloride) 100 mls @ 100 mls/hr IVPB DAILY [facility] Last Admin: 02/27/17 10:08 Dose: 100 mls/hr Insulin Aspart (Novolog Mix 70/30 (70/30 Units/Ml)) 35 units SC Q12 [facility] Last Admin: 02/27/17 21:50 Dose: 35 units Insulin Human Regular (Novolin R) 0 unit SC ACHS [facility] PRN Reason: Protocol Last Admin: 02/27/17 21:51 Dose: 3 unit Lactulose (Enulose) 20 gm PO Q4H [facility] Last Admin: 02/27/17 21:45 Dose: Not Given Pantoprazole Sodium (Protonix Ec Tab) 40 mg PO DAILY [facility] Last Admin: 02/27/17 10:07 Dose: 40 mg Spironolactone (Aldactone) 100 mg PO DAILY [facility] Last Admin: 02/27/17 10:05 Dose: 100 mg - Labs Labs: 02/27/17 07:02 02/27/17 07:02 PT 18.7 SECONDS (9.7-12.2) H 02/27/17 07:02 INR 1.6 02/27/17 07:02 APTT 39 SECONDS (21-34) H 02/25/17 08:07 Attending/Attestation - Attestation I have personally seen and examined this patient.: Yes I have fully participated in the care of the patient.: Yes I have reviewed all pertinent clinical information, including history, physical exam and plan: Yes Notes (Text): This is late computer entry for 02/27/17. Patient seen, examined and case discussed with day-time resident. Patient seen sitting upright, AAOX3, eating food, patient reports he is working with physical therapy. Patient continues to refuse paracentesis. Patient's blood cultures were received yesterday but not resulted. If patient remains afebrile and blood cultures are negative for 24 hours, patient is more discharge tomorrow. Patient's urine culture shows S. Mitris sensitive to Zosyn and Rocephin. Patient is on day 2 of Rocephin IV. Mental status has improved. Assessment/Plan 1) Hepatic Encephalopathy Assessment and Plan: * Possibly secondary to liver cirrhosis due to hepatitis C On admission: * Ammonia: 61 (previous admission on 02/04/17 = 175) * VBG Lactate: 2.9, pH 7.41 * BUN/CR: 13/.5 * INR: 1.5; PTT: 39 Medication: * Lactulose 20mg PO Q2H for 2 doses, Q4H after 2 doses until patient has diarrhea. * Lasix 20mg IVP daily * Aldactone 100mg PO daily * Urine culture: Strep mitis-->sensitive to Rocephin and PCN-->day 2 of Rocephin IV * Pending blood culture * CT Head: negative for acute findings 2) Abdominal Pain Assessment and Plan: * f/u CT abd and pelvis w/IV&PO contrast-->hx of cirrhosis; seen if there is appreciable ascites; patient is distended when he sits upright * CT abdomen and pelvis 02/25/17: Advanced cirrhosis with findings consistent with portal hypertension and portal systemic shunts. Moderate splenomegaly.Changes consistent with chronic pancreatitis. Nonspecific diffuse small bowel wall thickening, correlate clinically for enteritis. Irregular thick -walled urinary bladder with Nagel catheter present. Air within the urinary bladder may be secondary to instrumentation. Additional incidental findings as above. * Lipase: 69 3) Chronic active hepatitis C Assessment and Plan: * f/u Ab US of liver; prior Abdominal US in 2016 per review of EMR * Ab US (02/25/17): echogenic liver may be seen in setting of hepatic parenchymal disease or fatty infiltration. nodular hepatic contour consistent with cirrhosis. Main portal vein cannot be adequately visualizded, Mild gallbladder wall thickening/edema. No evidence of gallstones. Negative sonographic Quintero sign. Splenomegaly. Echogenic and renal parenchyma. * On prior admission. he was recommended for endoscopy/colonoscopy-->will need to follow-up with GI 4) Diabetes mellitus Assessment and Plan: * 01/28/17: HgbA1C: 13.0 * Accuchecks QAC and HS * Insulin sliding scale - moderate * increase patient's home regimen: Novolog 70/30 35 units subqBID * Heart Healthy/Carbo Consistent Diet * Monitor 5) Pancytopenia Assessment and Plan: * On admission:platelets 38 * Patient is known cirrhotic * chemical anticoagulation secondary to thrombocytopenia 6) Abnormal UA Assessment and Plan: * Patient has positive UA and urine culture-->started on Rocephin 1 gram IV q daily. * Urine culture: Strep Mitis 7) Prophylactic measure Assessment and Plan: * Protonix 40mg PO daily * DVT PPX: SCDs * anticoagulation contraindicated Thrombocytopenia 38 * PT/OT eval * PT saloni:" home w services vs home w/ cane and home Disposition: If blood cultures are negative, afebrile, and mentating well, patient to be discharge tomorrow with Lactulose, Aldactone, Lasic. Keflex, and to arrange with home w services and with cane.
[2017-02-27] MEDS: Pantoprazole 40 mg EC Tab PO SCH (10:07)
[2017-02-27 17:03] VITALS: RESP 20
[2017-02-28] MEDS: [UNRECOGNIZED DRUG - OTHER] SC SCH (07:30)
[2017-02-28 07:47] VITALS: PULSE 70; TEMP 97.3; O2SAT 95
--- NOTE | 2017-02-28 08:26 | CP.PCM.DIS ---
Provider - Provider Date of Admission: 02/25/17 09:39 Attending physician: Tamara Dowling DO Time Spent in preparation of Discharge (in minutes): 55 Hospital Course - Lab Results Lab Results: Micro Results 02/26/17 20:00 Blood Blood Culture - Preliminary NO GROWTH AFTER 24 HOURS 02/26/17 20:00 Blood Blood Culture - Preliminary NO GROWTH AFTER 24 HOURS 02/25/17 07:04 Urine Urine Culture - Final Streptococcus Mitis 02/26/17 10:40 Urine Urine Culture - Preliminary Gram Positive Cocci Most Recent Lab Values WBC 2.4 K/uL (4.8-10.8) L 02/27/17 07:02 RBC 4.35 Mil/uL (4.40-5.90) L 02/27/17 07:02 Hgb 13.1 g/dL (12.0-18.0) 02/27/17 07:02 Hct 38.7 % (35.0-51.0) 02/27/17 07:02 MCV 88.9 fL (80.0-94.0) 02/27/17 07:02 MCH 30.2 pg (27.0-31.0) 02/27/17 07:02 MCHC 34.0 g/dL (33.0-37.0) 02/27/17 07:02 RDW 16.4 % (11.5-14.5) H 02/27/17 07:02 Plt Count 34 K/uL (130-400) L 02/27/17 07:02 MPV 8.1 fL (7.2-11.7) 02/27/17 07:02 Neut % (Auto) 59.9 % (50.0-75.0) 02/27/17 07:02 Lymph % (Auto) 21.7 % (20.0-40.0) 02/27/17 07:02 [place] % (Auto) 14.1 % (0.0-10.0) H 02/27/17 07:02 Eos % (Auto) 3.7 % (0.0-4.0) 02/27/17 07:02 Baso % (Auto) 0.6 % (0.0-2.0) 02/27/17 07:02 Neut # 1.4 K/uL (1.8-7.0) L 02/27/17 07:02 Lymph # 0.5 K/uL (1.0-4.3) L 02/27/17 07:02 [place] # 0.3 K/uL (0.0-0.8) 02/27/17 07:02 Eos # 0.1 K/uL (0.0-0.7) 02/27/17 07:02 Baso # 0.0 K/uL (0.0-0.2) 02/27/17 07:02 PT 18.7 SECONDS (9.7-12.2) H 02/27/17 07:02 INR 1.6 02/27/17 07:02 APTT 39 SECONDS (21-34) H 02/25/17 08:07 pO2 30 mm/Hg (30-55) 02/25/17 08:17 VBG pH 7.41 (7.32-7.43) 02/25/17 08:17 VBG pCO2 41 mmHg (40-60) 02/25/17 08:17 VBG HCO3 24.8 mmol/L 02/25/17 08:17 VBG Total CO2 27.3 mmol/L (22-28) 02/25/17 08:17 VBG O2 Sat (Calc) 59.8 % (40-65) 02/25/17 08:17 VBG Base Excess 1.2 mmol/L (0.0-2.0) 02/25/17 08:17 VBG Potassium 4.2 mmol/L (3.6-5.2) 02/25/17 08:17 Sodium 137.0 mmol/l (132-148) 02/25/17 08:17 Chloride 105.0 mmol/L (98-107) 02/25/17 08:17 Glucose 293 mg/dl (75-110) H 02/25/17 08:17 Lactate 2.9 mmol/L (0.7-2.1) H 02/25/17 08:17 Sodium 134 mmol/L (132-148) 02/27/17 07:02 Potassium 3.7 mmol/L (3.6-5.2) 02/27/17 07:02 Chloride 100 mmol/L (98-107) 02/27/17 07:02 Carbon Dioxide 23 mmol/L (22-30) 02/27/17 07:02 Anion Gap 15 (10-20) 02/27/17 07:02 BUN 12 mg/dL (9-20) 02/27/17 07:02 Creatinine 0.6 MG/DL (0.8-1.5) L 02/27/17 07:02 Est GFR ( Amer) > 60 02/27/17 07:02 Est GFR (Non-Af Amer) > 60 02/27/17 07:02 POC Glucose (mg/dL) 78 mg/dL (65-110) 02/28/17 07:13 Random Glucose 324 mg/dL (75-110) H 02/27/17 07:02 Calcium 7.9 mg/dl (8.6-10.4) L 02/27/17 07:02 Magnesium 1.7 mg/dL (1.6-2.3) 02/26/17 20:03 Total Bilirubin 2.9 mg/dL (0.2-1.3) H 02/27/17 07:02 AST 41 U/L (17-59) 02/27/17 07:02 ALT 44 U/L (21-72) 02/27/17 07:02 Alkaline Phosphatase 134 U/L (38-126) H 02/27/17 07:02 Ammonia 61 umol/L (9-33) H D 02/25/17 08:07 Total Protein 5.7 g/dL (6.3-8.3) L 02/27/17 07:02 Albumin 2.3 g/dL (3.5-5.0) L 02/27/17 07:02 Globulin 3.4 gm/dL (2.2-3.9) 02/27/17 07:02 Albumin/Globulin Ratio 0.7 (1.0-2.1) L 02/27/17 07:02 Amylase 50 U/L (30-110) 02/26/17 06:56 Lipase 69 U/L (23-300) 02/26/17 06:56 Venous Blood Potassium 4.2 mmol/L (3.6-5.2) 02/25/17 08:17 Urine Color Yellow (YELLOW) 02/26/17 11:45 Urine Clarity Clear (Clear) 02/26/17 11:45 Urine pH 5.0 (5.0-8.0) 02/26/17 11:45 Ur Specific [place] 1.035 (1.003-1.030) H 02/26/17 11:45 Urine Protein 1+ mg/dL (NEGATIVE) H 02/26/17 11:45 Urine Glucose (UA) 3+ mg/dL (Normal) H 02/26/17 11:45 Urine Ketones Negative mg/dL (NEGATIVE) 02/26/17 11:45 Urine Blood 2+ (NEGATIVE) H 02/26/17 11:45 Urine Nitrate Negative (NEGATIVE) 02/26/17 11:45 Urine Bilirubin Negative (NEGATIVE) 02/26/17 11:45 Urine Urobilinogen 4.0 mg/dL (0.2-1.0) 02/26/17 11:45 Ur Leukocyte Esterase 1+ Justin/uL (Negative) H 02/26/17 11:45 Urine WBC (Auto) 28 /hpf (0-5) H 02/26/17 11:45 Urine RBC (Auto) 28 /hpf (0-3) H 02/26/17 11:45 Ur Squamous Epith Cells < 1 /hpf (0-5) 02/26/17 11:45 Urine Bacteria Rare (<OCC) 02/26/17 11:45 HIV 1&2 Antibody Screen Negative (NEGATIVE) 02/27/17 11:49 - Hospital Course Hospital Course: Upon Admission: The patient is a 61 year old male with a past medical history of Hepatitis C, Cirrhosis, R inguinal hernia, and IDDM. He was brought in by the EMS due to mental status change. As per ED note, the patient's states that the patient is a poor historian. During patient's encounter, HPI and ROS was minimal due to being lethargic and drowsy. There was no family members at bedside during the encounter. The patient stated that his reasoning for coming to the hospital today was because of a headache and abdominal pain. He stated that he is no longer experiencing these pains at the time of the encounter. Denies f/c, n/v, d/c, sob, cp or headache. The following information was obtained by chart review PMH: Hepatitis C, Cirrhosis, R inguinal hernia, and IDDM PSH: Denies FHx: Denies Meds: Patient reports medication compliance but occurring to previous documentation, he does not take his medication. Allergies: NKDA Social History: current smoker (5 cig/day for 20 years) former PPD smoker (20 years), denies current or history of alcohol or illicit drug use Medications given in the ER: Lactulose 40mg PO once Throughout Hospital Course: Patient was admitted for AMS. 1) Hepatic Encephalopathy Assessment and Plan: * Possibly secondary to liver cirrhosis due to hepatitis C On admission: * Ammonia: 61 (previous admission on 02/04/17 = 175) * VBG Lactate: 2.9, pH 7.41 * BUN/CR: 13/.5 * INR: 1.5; PTT: 39 Medication: * Lactulose 20mg PO Q2H for 2 doses, Q4H after 2 doses until patient has diarrhea. * Lasix 20mg IVP daily * Aldactone 100mg PO daily * Urine culture: Strep mitis-->sensitive to Rocephin and PCN-->day 2 of Rocephin IV * Pending blood culture * CT Head: negative for acute findings 2) Abdominal Pain Assessment and Plan: * f/u CT abd and pelvis w/IV&PO contrast-->hx of cirrhosis; seen if there is appreciable ascites; patient is distended when he sits upright * CT abdomen and pelvis 02/25/17: Advanced cirrhosis with findings consistent with portal hypertension and portal systemic shunts. Moderate splenomegaly.Changes consistent with chronic pancreatitis. Nonspecific diffuse small bowel wall thickening, correlate clinically for enteritis. Irregular thick -walled urinary bladder with Nagel catheter present. Air within the urinary bladder may be secondary to instrumentation. Additional incidental findings as above. * Lipase: 69 3) Chronic active hepatitis C Assessment and Plan: * f/u Ab US of liver; prior Abdominal US in 2016 per review of EMR * Ab US (02/25/17): echogenic liver may be seen in setting of hepatic parenchymal disease or fatty infiltration. nodular hepatic contour consistent with cirrhosis. Main portal vein cannot be adequately visualizded, Mild gallbladder wall thickening/edema. No evidence of gallstones. Negative sonographic Quintero sign. Splenomegaly. Echogenic and renal parenchyma. * On prior admission. he was recommended for endoscopy/colonoscopy-->will need to follow-up with GI 4) Diabetes mellitus Assessment and Plan: * 01/28/17: HgbA1C: 13.0 * Accuchecks QAC and HS * Insulin sliding scale - moderate * increase patient's home regimen: Novolog 70/30 35 units subqBID * Heart Healthy/Carbo Consistent Diet * Monitor 5) Pancytopenia Assessment and Plan: * On admission:platelets 38 * Patient is known cirrhotic * chemical anticoagulation secondary to thrombocytopenia 6) Abnormal UA Assessment and Plan: * Patient has positive UA and urine culture-->started on Rocephin 1 gram IV q daily. * Urine culture: Strep Mitis 7) Prophylactic measure Assessment and Plan: * Protonix 40mg PO daily * DVT PPX: SCDs * anticoagulation contraindicated Thrombocytopenia 38 * PT/OT eval * PT saloni:" home w services vs home w/ cane and home This is a short summary of the patient's hospital course. Please review EMR for full record. Discharge Exam - Head Exam Head Exam: NORMAL INSPECTION, NORMOCEPHALIC - Additional Findings Additional findings: - Constitutional Appears: No Acute Distress - Head Exam Head Exam: NORMAL INSPECTION, NORMOCEPHALIC - Eye Exam Eye Exam: EOMI, Normal appearance, PERRL Pupil Exam: NORMAL ACCOMODATION - ENT Exam ENT Exam: Mucous Membranes Moist - Respiratory Exam Respiratory Exam: NORMAL BREATHING PATTERN. absent: Decreased Breath Sounds - Cardiovascular Exam Cardiovascular Exam: REGULAR RHYTHM, RRR, +S1, +S2 - GI/Abdominal Exam GI & Abdominal Exam: Distended (+ fluid wave shift ), Soft, Normal Bowel Sounds. absent: Tenderness - Extremities Exam Extremities Exam: Normal Inspection. absent: Pedal Edema, Tenderness - Neurological Exam Neurological Exam: Alert, Awake, Oriented x3 - Psychiatric Exam Psychiatric exam: Normal Affect, Normal Mood - Skin Skin Exam: Dry, Intact, Normal Color, Warm Discharge Plan - Discharge Medications Prescriptions: Cephalexin [cephalexin] 500 mg PO Q12 #10 cap Furosemide [Lasix] 20 mg PO DAILY #30 udc Lactulose [Enulose] 20 gm PO BID #60 udc Spironolactone [Aldactone] 100 mg PO DAILY #30 tab - Follow Up Plan Condition: STABLE Disposition: HOME/ ROUTINE Additional Instructions: Patient is to continue taking the following medications: Keflex 500mg by mouth twice a day x 5 days - to treat your urinary tract infection Lasix 20mg by mouth daily - to help remove the fluid from your abdomen Aldactone 100mg by mouth daily - to help remove the fluid from your abdomen Novolog 70/30 - 35 units twice a day - please take this before BREAKFAST and before dinner. Lactulose 20grm by mouth twice a day, when you start to feel no like yourself, more confused -take 1 more dose - so total of 3 that day. Please make an appointment with our clinic, so that we can see you and give you a referral to see a stomach (GI) doctor. Please return to the ED if your symptoms worsen or return. Referrals: [facility] [Outside]
[2017-02-28 08:36] LABS: INR 1.6
[2017-02-28 08:44] LABS: BASO % 0.8 % (0.0-2.0); EOS # 0.1 K/uL (0.0-0.7); EOS % 3.7 % (0.0-4.0); HEMATOCRIT 40.3 % (35.0-51.0); LYMPH % 34.8 % (20.0-40.0); MEAN CELL VOLUME 88.5 fL (80.0-94.0); MEAN CORPUSCULAR HEMOGLOBIN 30.7 pg (27.0-31.0); MEAN CORPUSCULAR HGB CONC 34.7 g/dL (33.0-37.0); MEAN PLATELET VOLUME 8.3 fL (7.2-11.7); MONO # 0.3 K/uL (0.0-0.8); MONO % 11.6 % (0.0-10.0); NRBC % 0.5 % (0.0-2.0); RED CELL DISTRIBUTION WIDTH 16.1 % (11.5-14.5); WHITE BLOOD COUNT 2.9 K/uL (4.8-10.8)
[2017-02-28 08:56] LABS: CHLORIDE 102 mmol/L (98-107); POTASSIUM 3.5 mmol/L (3.6-5.2); SODIUM 137 mmol/L (132-148)
[2017-02-28 08:58] LABS: GFR AFRICAN-AMERICAN > 60
[2017-02-28 08:59] LABS: ALB/GLOB RATIO 0.7 (1.0-2.1); ALKALINE PHOSPHATASE 146 U/L (38-126); ALT/SGPT 45 U/L (21-72); AST/SGOT 47 U/L (17-59); BILIRUBIN,TOTAL 2.9 mg/dL (0.2-1.3); BLOOD UREA NITROGEN 11 mg/dL (9-20); CARBON DIOXIDE 24 mmol/L (22-30); GLUCOSE,RANDOM 79 mg/dL (75-110); TOTAL PROTEIN 6.3 g/dL (6.3-8.3)
[2017-02-28 09:00] LABS: CALCIUM 8.1 mg/dl (8.6-10.4)
[2017-02-28] MEDS: Pantoprazole 40 mg EC Tab PO SCH (09:57)
[2017-02-28 09:58] VITALS: BP 101/58
[2017-02-28] MEDS: (Novolog Mix 70/30) Insulin Aspart/Insulin Aspar 100 units/ml SC SCH (10:00)
--- NOTE | 2017-03-02 13:00 | CARD ---
APPROVED REPORT EKG Measurement Heart [id number] 126P66 [id number] <Conclusion> Normal sinus rhythm Nonspecific T wave abnormality Prolonged QT Abnormal ECG
== END 2017-02-28 12:00 | disposition home or self-care (01) | DRG 205 ==
LOC: C.ER 07:04 → C.9E 09:39 → C.3T 10:51
PROVIDERS: ADMIT Hospitalist; ATTEND Hospitalist
DX: K72.90 Hepatic failure, unspecified without coma (principal); K74.60 Unspecified cirrhosis of liver; D61.818 Other pancytopenia; K76.6 Portal hypertension; B18.2 Chronic viral hepatitis C; K86.1 Other chronic pancreatitis; Z91.14 Patient's other noncompliance with medication regimen; I10 Essential (primary) hypertension; F17.200 Nicotine dependence, unspecified, uncomplicated

== ENCOUNTER 2017-05-27 11:39 | Emergency (ER) | payer OTHER ==
[2017-05-27] MEDS ORDERED: Sodium Chloride 0.9% 500 ML IV ONE (12:56)
[2017-05-27 13:15] LABS: BASO % 0.9 % (0.0-2.0); EOS # 0.1 K/uL (0.0-0.7); EOS % 3.5 % (0.0-4.0); HEMATOCRIT 46.1 % (35.0-51.0); LYMPH # 0.6 K/uL (1.0-4.3); LYMPH % 26.8 % (20.0-40.0); MEAN CELL VOLUME 87.4 fL (80.0-94.0); MEAN CORPUSCULAR HEMOGLOBIN 29.8 pg (27.0-31.0); MEAN CORPUSCULAR HGB CONC 34.1 g/dL (33.0-37.0); MEAN PLATELET VOLUME 8.6 fL (7.2-11.7); MONO # 0.2 K/uL (0.0-0.8); MONO % 11.6 % (0.0-10.0); NRBC % 0.3 % (0.0-2.0); RED CELL DISTRIBUTION WIDTH 16.7 % (11.5-14.5); WHITE BLOOD COUNT 2.1 K/uL (4.8-10.8)
[2017-05-27 13:30] LABS: RBC URINE 17 /hpf (0-3); URINE BILIRUBIN NEGATIVE (NEGATIVE); URINE BLOOD 1+ (NEGATIVE); URINE COLOR Amber (YELLOW); URINE GLUCOSE (UA) 2+ mg/dL (Normal); URINE KETONE NEGATIVE (NEGATIVE); URINE LEUKOCYTE ESTERASE NEG Leu/uL (Negative); URINE PROTEIN NEGATIVE (NEGATIVE); WBC URINE 5 /hpf (0-5)
[2017-05-27 13:33] LABS: POTASSIUM 3.9 mmol/L (3.6-5.2)
[2017-05-27 13:34] LABS: ALB/GLOB RATIO 0.8 (1.0-2.1); ALKALINE PHOSPHATASE 134 U/L (38-126); ALT/SGPT 55 U/L (21-72); AST/SGOT 74 U/L (17-59); BILIRUBIN,TOTAL 3.9 mg/dL (0.2-1.3); BLOOD UREA NITROGEN 14 mg/dL (9-20); CALCIUM 8.4 mg/dl (8.6-10.4); CARBON DIOXIDE 26 mmol/L (22-30); CHLORIDE 100 mmol/L (98-107); GFR AFRICAN-AMERICAN > 60; GLUCOSE,RANDOM 244 mg/dL (75-110); SODIUM 133 mmol/L (132-148); TOTAL PROTEIN 7.2 g/dL (6.3-8.3)
[2017-05-27 13:48] VITALS: BP 104/57; PULSE 67; RESP 18; TEMP 97.8; O2SAT 99
--- NOTE | 2017-05-27 14:49 | C.PDOC ---
History Of Present Illness 61-year-old male presents to the emergency department with complaints of high blood sugar and a possibly high ammonia level. Patient has a history of liver cirrhosis due to hepatitis C. He denies chest pain, shortness of breath, fever , cough, dysuria/hematuria. Time Seen by Provider: 05/27/17 11:52 Chief Complaint (Nursing): High Blood Sugar History Per: Patient History/Exam Limitations: no limitations Onset/Duration Of Symptoms: Days Current Symptoms Are (Timing): Still Present Severity: Moderate Past Medical History Reviewed: Historical Data, Nursing Documentation, Vital Signs Vital Signs: Last Vital Signs Temp 97.8 F 05/27/17 13:47 Pulse 67 05/27/17 13:47 Resp 18 05/27/17 13:47 BP 104/57 L 05/27/17 13:47 Pulse Ox 99 05/29/17 01:00 - Medical History PMH: Diabetes, Hepatitis, HTN, Hypercholesterolemia Family History: States: Hypertension - Social History Hx Tobacco Use: Yes Hx Alcohol Use: No Hx Substance Use: No - Immunization History Hx Tetanus Toxoid Vaccination: No Hx Influenza Vaccination: No Hx Pneumococcal Vaccination: No Review Of Systems Except As Marked, All Systems Reviewed And Found Negative. Constitutional: Negative for: Fever Cardiovascular: Negative for: Chest Pain, Palpitations Respiratory: Negative for: Cough, Shortness of Breath Gastrointestinal: Negative for: Nausea, Vomiting, Abdominal Pain, Diarrhea Genitourinary: Negative for: Dysuria, Frequency Musculoskeletal: Negative for: Back Pain Neurological: Negative for: Weakness, Numbness, Headache, Dizziness Physical Exam - Physical Exam Appears: Well, Non-toxic, No Acute Distress, Other (appears older than stated age) Skin: Warm, Dry, No Rash Head: Atraumatic, Normacephalic Eye(s): bilateral: Normal Inspection, PERRL, EOMI Oral Mucosa: Moist Neck: Normal ROM, Supple Cardiovascular: Rhythm Regular Respiratory: Normal Breath Sounds, No Rales, No Rhonchi, No Wheezing Gastrointestinal/Abdominal: Normal Exam, Bowel Sounds, Soft, No Tenderness, No Ascites Extremity: Normal ROM Neurological/Psych: Oriented x3 ED Course And Treatment - Laboratory Results Result Diagrams: 05/27/17 13:08 05/27/17 13:08 ECG: Interpreted By Me, Viewed By Me (NSR 67 bpm, normal axis, no acute ST/T wave changes) ECG Interpretation: Normal O2 Sat by Pulse Oximetry: 99 (RA) Pulse Ox Interpretation: Normal Progress Note: Bloodwork, EKG and UA ordered and reviewed. Patient given IV NS bolus. Reevaluation Time: 15:15 Reassessment Condition: Improved (On reassessment, patient is resting comfortably and has no physical complaints. Blood work shows elevated liver enzymes and thombocytopenia, which appear to be chronic (prior labs reviewed). Blood sugar 244 and ammonia level WNL. Patient is AAOx3, ambulating normally in ED, and comfortable being discharged home. He was instructed to follow up in medical clinic in 1-2 days, and understands he should return to ED if he has any concerning symptoms.) Disposition Counseled Patient/Family Regarding: Studies Performed, Diagnosis, Need For Followup - Disposition Referrals: [facility] [Outside] Disposition: HOME/ ROUTINE Disposition Time: 15:15 Condition: STABLE Additional Instructions: FOLLOW UP IN THE MEDICAL CLINIC IN 1-2 DAYS RETURN TO EMERGENCY ROOM IF YOU HAVE ANY CONCERNING SYMPTOMS Forms: [facility] (Gabonese), General Discharge Instructions Print Language: CHINESE - POA Present On Arrival: None - Clinical Impression Clinical Impression: Evaluation by medical service required, Hyperglycemia, Elevated liver enzymes, Thrombocytopenia - Scribe Statement The provider has reviewed the documentation as recorded by the Scribe (Michi Gomez) All medical record entries made by the Scribe were at my direction and personally dictated by me. I have reviewed the chart and agree that the record accurately reflects my personal performance of the history, physical exam, medical decision making, and the department course for this patient. I have also personally directed, reviewed, and agree with the discharge instructions and disposition.
--- NOTE | 2017-05-28 15:43 | CARD ---
APPROVED REPORT EKG Measurement Heart [id number] MA 130P68 [id number] <Conclusion> Normal sinus rhythm Normal ECG
== END 2017-05-27 16:00 | disposition home or self-care (01) ==
LOC: EDUNIT# 11:39 → C.ER 11:39
DX: E11.65 Type 2 diabetes mellitus with hyperglycemia (principal); D69.6 Thrombocytopenia, unspecified; R74.8 Abnormal levels of other serum enzymes; E78.00 Pure hypercholesterolemia, unspecified; I10 Essential (primary) hypertension; Z87.891 Personal history of nicotine dependence
CPT/HCPCS: 71010; 80053; 81001; 82009; 82140; 85025; 93005; 99285; J7040

== ENCOUNTER 2017-07-09 12:33 | Emergency (ER) | payer OTHER ==
[2017-07-09 12:34] VITALS: BMI 23.6
[2017-07-09 13:12] VITALS: BP 143/67; PULSE 89; RESP 20; TEMP 97.8; O2SAT 96
--- NOTE | 2017-07-09 18:27 | C.PDOC ---
History Of Present Illness 61 year old male presents to the ED for evaluation of abdominal pain that has been ongoing for 1 month. Patient has history of inguinal hernia and is currently scheduled to undergo surgery next week. Patient wants the surgery to be done now. He denies fever, chills, nausea, vomiting, or changes in eating habits. Chief Complaint (Nursing): Abdominal Pain History Per: Patient History/Exam Limitations: no limitations Onset/Duration Of Symptoms: Other (more than 1 month ) Current Symptoms Are (Timing): Still Present Location Of Pain/Discomfort: Diffuse Quality Of Discomfort: "Pain" Associated Symptoms: denies: Fever, Chills, Nausea, Vomiting Additional History Per: Patient Past Medical History Reviewed: Historical Data, Nursing Documentation, Vital Signs Vital Signs: Last Vital Signs Temp 97.8 F 07/09/17 13:10 Pulse 89 07/09/17 13:10 Resp 20 07/09/17 14:50 BP 143/67 07/09/17 13:10 Pulse Ox 96 07/09/17 18:31 - Medical History PMH: Diabetes, Hepatitis, HTN, Hypercholesterolemia Denies: Chronic Kidney Disease Surgical History: No Surg Hx Family History: States: Hypertension - Social History Hx Tobacco Use: Yes Hx Alcohol Use: No Hx Substance Use: No - Immunization History Hx Tetanus Toxoid Vaccination: No Hx Influenza Vaccination: No Hx Pneumococcal Vaccination: No Review Of Systems Constitutional: Negative for: Fever, Chills Gastrointestinal: Positive for: Abdominal Pain. Negative for: Nausea, Vomiting Physical Exam - Physical Exam Appears: Non-toxic, No Acute Distress Skin: Normal Color, Warm, Dry Head: Atraumatic, Normacephalic Eye(s): bilateral: Normal Inspection Oral Mucosa: Moist Neck: Supple Chest: Symmetrical, No Deformity, No Tenderness Cardiovascular: Rhythm Regular, No Murmur Respiratory: Normal Breath Sounds, No Rales, No Rhonchi, No Wheezing Gastrointestinal/Abdominal: Soft, No Guarding, No Rebound, Hernia (reducible, inguinal ) Extremity: Normal ROM, Capillary Refill (less than 2 seconds ) Neurological/Psych: Oriented x3, Normal Speech, Normal Cognition ED Course And Treatment O2 Sat by Pulse Oximetry: 96 (on RA) Pulse Ox Interpretation: Normal Disposition - Disposition Referrals: [facility] [Outside] [facility] [Outside] Disposition: HOME/ ROUTINE Disposition Time: 14:20 Condition: GOOD Additional Instructions: Thank you for letting us take care of you today. The emergency medical care you received today was directed at your acute symptoms. If you were prescribed any medication, please fill it and take as directed. It may take several days for your symptoms to resolve. Return to the Emergency Department if your symptoms worsen, do not improve, or if you have any other problems. Please contact your doctor or call one of the physicians/clinics you have been referred to that are listed on the Patient Visit Information form that is included in your discharge packet. Bring any paperwork you were given at discharge with you along with any medications you are taking to your follow up visit. Our treatment cannot replace ongoing medical care by a primary care provider (PCP) outside of the emergency department. Thank you for allowing the [facility] team to be part of your care today. Please follow up with the surgeon as scheduled for re-evaluation and further management. Prescriptions: Ibuprofen [Motrin] 600 mg PO Q6 PRN #20 tab PRN Reason: Pain, Moderate (4-7) Instructions: Inguinal Hernia (ED) Forms: [employer] (Syriac) - Clinical Impression Clinical Impression: Inguinal hernia - Scribe Statement The provider has reviewed the documentation as recorded by the Scribe ([email or web address]) Provider Attestation: All medical record entries made by the Scribe were at my direction and personally dictated by me. I have reviewed the chart and agree that the record accurately reflects my personal performance of the history, physical exam, medical decision making, and the department course for this patient. I have also personally directed, reviewed, and agree with the discharge instructions and disposition.
== END 2017-07-09 14:50 | disposition home or self-care (01) ==
LOC: C.ER 12:33
DX: K40.90 Unilateral inguinal hernia, without obstruction or gangrene, not specified as recurrent (principal)